=== PATIENT | female | born 1950 | race Caucasian/White ===

== ENCOUNTER → 2017-02-20 | Outpatient (CLI) | payer OTHER | LOC: FIMAGING 09:40 | PROVIDERS: ATTEND Obstetrics & Gynecology | DX: Z12.31 Encounter for screening mammogram for malignant neoplasm of breast (principal) | CPT/HCPCS: G0202; G0202-52 ==

== ENCOUNTER → 2018-02-21 | Outpatient (CLI) | payer OTHER | LOC: FIMAGING 08:37 | PROVIDERS: ATTEND Obstetrics & Gynecology | DX: Z12.31 Encounter for screening mammogram for malignant neoplasm of breast (principal) ==

== ENCOUNTER 2018-09-20 14:27 | Inpatient (IN) | payer OTHER ==
--- NOTE | 2018-09-20 15:09 | EDPHY ---
H & P Stated Complaint: Pt fall x8D [employer], H/A, had CT, wants MRI Time Seen by Provider: 09/20/18 14:55 HPI/ROS: CHIEF COMPLAINT: Brain mass HISTORY OF PRESENT ILLNESS: The patient is a 68-year-old female who has developed some difficulty with balance over the last week as well as occasional nausea vomiting. She had a mechanical fall about 1 week ago and presented to her primary doctor Sheng. Her primary ordered a CT scan that revealed a large frontal mass. No bleeding. She was sent here for admission and MRI. She denies recent fevers or illness. She does have a mild headache. She denies chest pain or shortness of breath. Severity: Moderate Modifying factors: None REVIEW OF SYSTEMS: Constitutional: denies: chills, fever, recent illness, recent injury EENTM: denies: blurred vision, double vision, nose congestion Respiratory: denies: cough, shortness of breath Cardiac: denies: chest pain, irregular heart rate, lightheadedness, palpitations Gastrointestinal/Abdominal: See HPI denies: abdominal pain, diarrhea, blood streaked stools Genitourinary: denies: dysuria, frequency, hematuria, pain Musculoskeletal: denies: joint pain, muscle pain Skin: denies: lesions, rash, jaundice, bruising Neurological: See HPI denies: numbness, paresthesia, tingling, dizziness, weakness Hematologic/Lymphatic: denies: blood clots, easy bleeding, easy bruising Immunologic/allergic: denies: HIV/AIDS, transplant 10 systems reviewed and negative except as noted EXAM: GENERAL: Well-appearing, well-nourished and in no acute distress. HEAD: Atraumatic, normocephalic. EYES: Pupils equal round and reactive to light, extraocular movements intact, sclera anicteric, conjunctiva are normal. ENT: TMs normal, nares patent, oropharynx clear without exudates. Moist mucous membranes. NECK: Normal range of motion, supple without lymphadenopathy or JVD. LUNGS: Breath sounds clear to auscultation bilaterally and equal. No wheezes rales or rhonchi. HEART: Regular rate and rhythm without murmurs, rubs or gallops. ABDOMEN: Soft, nontender, normoactive bowel sounds. No guarding, no rebound. No masses appreciated. BACK: No CVA tenderness, no spinal tenderness, step-offs or deformities EXTREMITIES: Normal range of motion, no pitting or edema. No clubbing or cyanosis. NEUROLOGICAL: Cranial nerves II through XII grossly intact. Normal speech, unsteady gait. 5/5 strength, normal movement in all extremities, normal sensation, normal reflexes PSYCH: Normal affect, preoccupied with needing to urinate SKIN: Warm, dry, normal turgor, no visible rashes or lesions. Source: Patient Exam Limitations: No limitations - Personal History Current Tetanus/Diphtheria Vaccine: Unsure - Medical/Surgical History Hx Asthma: No Hx Chronic Respiratory Disease: No Hx Diabetes: No Hx Cardiac Disease: No Hx Renal Disease: No Hx Cirrhosis: No Hx Alcoholism: No Hx HIV/AIDS: No Hx Splenectomy or Spleen Trauma: No Other PMH: Osteopenia - Family History Significant Family History: No pertinent family hx - Social History Smoking Status: Never smoked Alcohol Use: None Constitutional: Initial Vital Signs Temperature (C) 36.6 C 09/20/18 14:34 Heart Rate 82 09/20/18 14:34 Respiratory Rate 18 09/20/18 14:34 Blood Pressure 134/89 H 09/20/18 14:34 O2 Sat (%) 99 09/20/18 14:34 O2 Delivery Mode Room Air Allergies/Adverse Reactions: ibuprofen [From Advil] Allergy (Intermediate, Verified 09/20/18 18:54) sob Sulfa (Sulfonamide Antibiotics) Allergy (Intermediate, Verified 09/20/18 14:33) Home Medications: Medication Instructions Recorded aMILoride HCL [Amiloride HCl] 5 mg PO BID 06/05/12 Cholecalciferol Vit D3 [Vitamin D3 1,000 units PO BID 06/08/12 (*)] Citalopram Hydrobromide 10 mg PO HS 06/08/12 [Citalopram HBr] Promethazine HCl [Phenergan Rectal] 25 mg AZ Q6 PRN #10 suppr 04/20/16 Aspirin [Aspirin 325 mg (*)] 325 mg PO DAILY PRN 09/20/18 Herbals/Supplements -Info Only 1 ea PO DAILY 09/20/18 LORazepam [Ativan (*)] 0.5 mg PO BID PRN 09/20/18 Medical Decision Making ED Course/Re-evaluation: 3:45 p.m. discussed the case with Dr. Goodson who will consult as well as Dr. Vivas who will admit to the hospital service. MRI pending. Differential Diagnosis: Partial list of the Differential diagnosis considered include but were not limited to; tumor, and although unlikely based on the history and physical exam , I also considered hemorrhage, fracture. - Data Points Laboratory Results: Laboratory Results 09/20/18 15:39 09/20/18 15:39 Medications Given: Dexamethasone (Decadron Injection) 4 mg IVP Q6HRS JULIET Stop: 03/20/19 00:00 Last Admin: 09/21/18 14:33 Dose: 4 mg Levetiracetam 750 mg/ Sodium (Chloride) 107.5 mls @ 430 mls/hr IV BID JULIET Stop: 03/19/19 20:59 Last Admin: 09/21/18 11:48 Dose: 107.5 mls Discontinued Medications Dexamethasone (Decadron Injection) 10 mg IVP ONCE ONE Stop: 09/20/18 16:32 Last Admin: 09/20/18 17:23 Dose: 10 mg Potassium Chloride (Potassium Cl 20 Meq (Premix)) 100 mls @ 50 mls/hr IV EDNOW ONE Stop: 09/20/18 19:07 Last Admin: 09/20/18 18:15 Dose: 100 mls Potassium Chloride (Potassium Chloride Oral Liquid) 20 meq PO ONCE ONE Stop: 09/20/18 17:09 Last Admin: 09/20/18 17:24 Dose: Not Given Potassium Chloride (Klor-Con) 20 meq PO ONCE ONE Stop: 09/20/18 17:24 Last Admin: 09/20/18 17:25 Dose: 20 meq Point of Care Test Results: Chemistry 09/20/18 15:47 POC Sodium 132 mEq/L L mEq/L (135-145) POC Potassium 2.3 mEq/L L* mEq/L (3.3-5.0) POC Chloride 92 mEq/L L mEq/L (97-110) POC BUN 16 mg/dL mg/dL (7-23) POC Creatinine 0.8 mg/dL mg/dL (0.6-1.0) POC Glucose 112 mg/dL H mg/dL (70-100) ISTAT H&H 09/20/18 15:47 POC Hgb 17.3 gm/dL H gm/dL (12.6-16.3) POC Hct 51 % H % (38-47) Departure - Departure Disposition: [facility] Acute Clinical Impression: Brain tumor Condition: Fair
[2018-09-20 15:51] LABS: PLATELET COUNT 294 10^3/uL (150-400)
[2018-09-20 16:03] LABS: INR 0.99 (0.83-1.16); PROTIME(PATIENT) 13.3 SEC (12.0-15.0)
[2018-09-20] MEDS ORDERED: GADOBUTROL 10 ML VIAL IVP ONE (16:29)
[2018-09-20] MEDS ORDERED: DEXAMETHASONE 10 MG/ML VIAL IVP ONE (16:31)
[2018-09-20] MEDS ORDERED: POTASSIUM Cl (KCl) 100 ML IV ONE (17:08)
[2018-09-20] MEDS ORDERED: POTASSIUM CL 20 MEQ/15 ML UDCUP PO ONE (17:08)
--- NOTE | 2018-09-20 17:12 | GCON ---
DATE OF CONSULTATION: 09/20/2018 REASON FOR CONSULTATION: Frontal brain mass. HOSPITAL COURSE, HISTORY, MAJOR MEDICAL FINDINGS: The patient is a 68-year-old female who approximately 1 week ago fell and tripped and hit her chin. At that time, she started having headaches and she saw her primary care doctor, Dr. Patricio, who recommended that she undergo a head CT, given her mechanism of fall. She underwent this head CT and it demonstrated a 4.5 x 5.2 x 4.5 cm left frontal parafalcine mass which abuts the ventral margin of the corpus callosum causing vasogenic edema and effacement of the frontal horn. Based on this, she was directed to go into the emergency room for further workup. Upon talking to the patient, she states that she has noticed some word-finding difficulties also over the last week. Denies any weakness in her bilateral upper or bilateral lower extremities. REVIEW OF SYSTEMS: Review of systems is negative other than what is stated in the HPI. Please see for pertinent negatives and pertinent positives. PAST MEDICAL HISTORY: Significant for osteopenia. The patient is unsure of her other past medical history. 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 SOCIAL HISTORY: The patient is . She lives in [place]. She does not drink any alcohol or use illicit drugs. FAMILY HISTORY: Negative for any cancers. Her mother had osteoporosis and her dad had coronary artery disease. ALLERGIES: Patient is allergic to sulfa and Aleve. HOME MEDICATIONS: Include: 1. Amiloride. 2. Phenergan. 3. vitamin D3. 4. Citalopram. PHYSICAL EXAM: VITALS: BP is 139/76, heart rate is 79. She is 94% on room air. Temp is 36.6. GENERAL: Patient is in no acute distress. She is alert and oriented to person and place. She does have some word-finding difficulty and is incorrect when reporting the date. NEUROLOGIC: Cranial nerves 2-12 are grossly intact. EOMI and PERRLA. Negative pronator drift. The patient is a 5/5 and equal in her bilateral upper and bilateral lower extremities including her deltoids, triceps, biceps, wrist flexors, extensors, interossei, intrinsic emr analyst, iliopsoas, hamstrings, quadriceps, plantar flexion, dorsiflexion, and EHL. Sensation is intact in bilateral upper and bilateral lower extremities. DIAGNOSTIC REVIEW: Patient's laboratory data demonstrated a sodium of 128, potassium of 2.6, glucose of 110. Other values are within normal range. The patient underwent a head CT which demonstrated a large left frontal parafalcine mass that is approximately 4.5 x 5.2 x 4.5 cm. This mass abuts the ventral margin of the corpus callosum with pronounced mass effect and vasogenic cerebral edema and effacement of the ventral horn. There is 7 mm of left to right subfalcine herniation. There is no evidence of transtentorial or uncal herniation. There is a punctate basal ganglion calcification that is similar to her study in 2007. ASSESSMENT AND PLAN: The patient is a 68-year-old female who presented to the emergency room with new headache status post fall, also was having word-finding difficulties, who has evidence of a large left frontal mass with surrounding cerebral edema and brain compression. The patient was seen both by Dr. Álvarez and myself in the emergency room. At this point in time, the patient will be admitted to the hospitalist, given her electrolyte abnormalities. She does report taking aspirin 325 for headaches. We will go ahead and we will hold that at this time. She will undergo an MRI for further characterization of this large mass. We will get her started on Decadron 4 mg every 12 and Keppra 750 mg p.o. every 12. We will continue to follow. Further recommendations to follow once the MRI has resulted. /[id number]/MODL MTDD
[2018-09-20] MEDS ORDERED: POTASSIUM CL 20 MEQ TAB ONE (17:20)
[2018-09-20] MEDS ORDERED: POTASSIUM CL 20 MEQ TAB PO ONE (17:23)
[2018-09-20] MEDS ORDERED: PROMETHAZINE HCL 25 MG/ML INJ IVP PRN (17:55)
[2018-09-20] MEDS ORDERED: ACETAMINOPHEN 325 MG TAB PO PRN (17:55)
[2018-09-20] MEDS ORDERED: ONDANSETRON DISINTEGRATING 4 MG TAB PO PRN (17:55)
[2018-09-20] MEDS ORDERED: HYDROCODONE/APAP 5/325 TAB PO PRN (17:55)
[2018-09-20] MEDS ORDERED: oxyCODONE IR 5 MG TAB PO PRN (17:55)
[2018-09-20] MEDS ORDERED: ALPRAZolam 0.5 MG TAB PO PRN (17:55)
[2018-09-20] MEDS ORDERED: LORazepam 2 MG/ML INJ IVP PRN (17:58)
--- NOTE | 2018-09-20 17:59 | PDGENHP ---
History and Physical - Chief Complaint dizzyness/fall - History of Present Illness 68 yo F with PMH that includes pre-diabetes and hx of pheochromocytoma presents from CT scan with newly discovered large frontal brain mass. Patient had been seen by her PCP Dr. Patricio for sxs of difficulties with balance for at least one week with a fall that occurred during that time as well. She was sent by her PCP for CT scan of the brain, and imaging revealed large brain mass for which she was referred to the ER for further evaluation and brain MRI. Patient notes that her dizziness has been present for at least a week and feels largely to her as if she has difficulty with balance and walking rather than vertigo or near syncope like sxs. She notes she has also had some difficulty finding words at times and also has had headache and intermittent nausea and vomiting. She did have a bout of intractable hiccups recently as well. She otherwise denies any changes in her health recently and notes that she currently feels well. History Information - Allergies/Home Medication List Allergies/Adverse Reactions: ibuprofen [From Advil] Allergy (Intermediate, Verified 09/20/18 18:54) sob Sulfa (Sulfonamide Antibiotics) Allergy (Intermediate, Verified 09/20/18 14:33) Home Medications: aMILoride HCL [Amiloride HCl] 5 mg PO BID 06/05/12 [Last Taken 09/13/18] Cholecalciferol Vit D3 [Vitamin D3 (*)] 1,000 units PO BID 06/08/12 [Last Taken 09/13/18] Citalopram Hydrobromide [Citalopram HBr] 10 mg PO HS 06/08/12 [Last Taken ] Aspirin [Aspirin 325 mg (*)] 325 mg PO DAILY PRN 09/20/18 [Last Taken Unknown] Herbals/Supplements -Info Only 1 ea PO DAILY 09/20/18 [Last Taken 09/13/18] LORazepam [Ativan (*)] 0.5 mg PO BID PRN 09/20/18 [Last Taken 09/16/18] I have personally reviewed and updated: family history, medical history, social history, surgical history - Past Medical History hypertension, psychiatric history - Surgical History Reports: no pertinent surgical hx - Family History Positive for: CAD (father) - Social History Smoking Status: Never smoked Alcohol Use: None Drug Use: None Additional social history: , accompanied by her Review of Systems Review of Systems: ROS: 10pt was reviewed & negative except for what was stated in HPI & below Physical Exam Physical Exam: Temp Pulse Resp BP Pulse Ox 36.6 C 87 16 157/83 H 95 09/20/18 14:34 09/20/18 17:54 09/20/18 17:54 09/20/18 17:54 09/20/18 17:54 Constitutional: no apparent distress, appears nourished Eyes: PERRL, anicteric sclera Ears, Nose, Mouth, Throat: moist mucous membranes, hearing normal Cardiovascular: regular rate and rhythym, no murmur, rub, or gallop, No edema Respiratory: no respiratory distress, no rales or rhonchi Gastrointestinal: normoactive bowel sounds, soft, non-tender abdomen Genitourinary: no bladder tenderness Skin: warm, normal color Musculoskeletal: full muscle strength Neurologic: AAOx3 Psychiatric: interacting appropriately, not anxious, not encephalopathic Lab Data & Imaging Review 09/20/18 15:39 09/20/18 15:39 WBC 7.28 10^3/uL (3.80-9.50) 09/20/18 15:39 RBC 5.27 10^6/uL (4.18-5.33) 09/20/18 15:39 Hgb 16.6 g/dL (12.6-16.3) H 09/20/18 15:39 POC Hgb 17.3 gm/dL (12.6-16.3) H 09/20/18 15:47 Hct 45.6 % (38.0-47.0) 09/20/18 15:39 POC Hct 51 % (38-47) H 09/20/18 15:47 MCV 86.5 fL (81.5-99.8) 09/20/18 15:39 MCH 31.5 pg (27.9-34.1) 09/20/18 15:39 MCHC 36.4 g/dL (32.4-36.7) 09/20/18 15:39 RDW 12.7 % (11.5-15.2) 09/20/18 15:39 Plt Count 294 10^3/uL (150-400) 09/20/18 15:39 MPV 9.1 fL (8.7-11.7) 09/20/18 15:39 Neut % (Auto) 68.1 % (39.3-74.2) 09/20/18 15:39 Lymph % (Auto) 21.2 % (15.0-45.0) 09/20/18 15:39 [place] % (Auto) 8.9 % (4.5-13.0) 09/20/18 15:39 Eos % (Auto) 0.7 % (0.6-7.6) 09/20/18 15:39 Baso % (Auto) 0.7 % (0.3-1.7) 09/20/18 15:39 Nucleat RBC Rel Count 0.0 % (0.0-0.2) 09/20/18 15:39 Absolute Neuts (auto) 4.96 10^3/uL (1.70-6.50) 09/20/18 15:39 Absolute Lymphs (auto) 1.54 10^3/uL (1.00-3.00) 09/20/18 15:39 Absolute Monos (auto) 0.65 10^3/uL (0.30-0.80) 09/20/18 15:39 Absolute Eos (auto) 0.05 10^3/uL (0.03-0.40) 09/20/18 15:39 Absolute Basos (auto) 0.05 10^3/uL (0.02-0.10) 09/20/18 15:39 Absolute Nucleated RBC 0.00 10^3/uL (0-0.01) 09/20/18 15:39 Immature Gran % 0.4 % (0.0-1.1) 09/20/18 15:39 Immature Gran # 0.03 10^3/uL (0.00-0.10) 09/20/18 15:39 PT 13.3 SEC (12.0-15.0) 09/20/18 15:39 INR 0.99 (0.83-1.16) 09/20/18 15:39 POC Sodium 132 mEq/L (135-145) L 09/20/18 15:47 Sodium 128 mEq/L (135-145) L 09/20/18 15:39 POC Potassium 2.3 mEq/L (3.3-5.0) L* 09/20/18 15:47 Potassium 2.6 mEq/L (3.5-5.2) L* 09/20/18 15:39 POC Chloride 92 mEq/L (97-110) L 09/20/18 15:47 Chloride 94 mEq/L (97-110) L 09/20/18 15:39 Carbon Dioxide 22 mEq/l (22-31) 09/20/18 15:39 Anion Gap 12 mEq/L (6-14) 09/20/18 15:39 POC BUN 16 mg/dL (7-23) 09/20/18 15:47 BUN 17 mg/dL (7-23) 09/20/18 15:39 Creatinine 0.8 mg/dL (0.6-1.0) 09/20/18 15:39 POC Creatinine 0.8 mg/dL (0.6-1.0) 09/20/18 15:47 Estimated GFR > 60 09/20/18 15:39 Glucose 110 mg/dL (70-100) H 09/20/18 15:39 POC Glucose 112 mg/dL (70-100) H 09/20/18 15:47 Calcium 9.1 mg/dL (8.5-10.4) 09/20/18 15:39 Visualized and Interpreted imaging results: Yes Interpretation: head CT: large left frontal mass with mass effect and edema ( measured at 4.5 x 5.2 x 4.5 cm). brain MRI: left frontal mass appears most c/w meningioma with 10mm of left to right shift and additional small lesions also c/ w meningioma Assessment & Plan Assessment: Brain tumor (Acute) 68 yo F with hx of gait instability and dizziness for the past week or so as well as more chronic n/v found to have large left frontal brain tumor likely meningioma # brain tumor: large and with associated edema and left to right shift with features most c/w meningioma per radiology. Neurosurgery has been consulted and patient will likely require surgical intervention, will keep NPO after midnight for now in case of surgery in am. Started on decadron given edema and keppra for seizure ppx. # hypokalemia: patient reports poor po intake since her sxs began a week ago, likely etiology, will start electrolyte protocol # hyponatremia: likely hypovolemic hyponatremia, will give IVF overnight and monitor # gait instability: 2/2 above, will get pt/ot involved # hyperglycemia: patient apparently with hx of pre diabetes, will monitor # hx of pheochromocytoma: sp resection # IP status, will require > 48 hours stay for eval/mgmt of above and likely surgical intervention Patient new to my care. Old records reviewed and summarized as above. Care plan reviewed with ER doctor, neurosurgeon and patients PCP. Further hx obtained from patients present at bedside.
[2018-09-20] MEDS ORDERED: NS 1,000 ML IV SCH (18:00)
[2018-09-20] MEDS ORDERED: PROTOCOL K PHOSPHATE 1 DOSE IV PRN (20:58)
[2018-09-20] MEDS ORDERED: PROTOCOL POTASSIUM 1 DOSE MISC PRN (20:58)
[2018-09-20] MEDS ORDERED: PROTOCOL CALCIUM 1 DOSE IV PRN (20:58)
[2018-09-20] MEDS ORDERED: PROTOCOL MAGNESIUM 1 DOSE IV PRN (20:58)
[2018-09-20] MEDS: levETIRAcetam 750 MG in NS 100 ML IV SCH (21:55)
[2018-09-21] MEDS: DEXAMETHASONE 4 MG/ML VIAL IVP SCH ×4 (00:36→18:55)
[2018-09-21 05:18] LABS: PLATELET COUNT 304 10^3/uL (150-400)
--- NOTE | 2018-09-21 09:47 | PDMN ---
Medical Necessity Medical necessity: Pt meets inpt criteria per MD order and MCG M-152, Dizziness. 68 y/o w/gait instability and dizziness for past week, nausea and vomiting admitted w/new diagnosis of brain tumor, large frontal-associated w/ edema and L to R shift, hypokalemia and hyponatremia (K 2.6, Na 128). Neurosurg consult, brain MRI, possible surgery this admission, IV Decadron, Keppra started , anticipate >2MN for further eval/likely surg intervention.
[2018-09-21] MEDS ORDERED: LORazepam 0.5 MG TAB PO PRN (10:47)
--- NOTE | 2018-09-21 10:49 | HOSPPROG ---
Hospitalist Progress Note Assessment/Plan: #Large frontal meningioma with cerebral edema, brain compression -expressive aphasia, gait instability -will stay in hospital until surgery given risk for clinical deterioration and falls -Dexamethasone -discussed with PT #Hypokalemia/hyponatremia: resolved with supplementation, IVFs #Metabolic encephalopathy: due to mass, cerebral edema. #Social issues: was very hostile, yelling at me about not knowing when surgery scheduled and NPO status. I expressed that his actions against me were inappropriate and I left the room #DVT ppx: SCDs Disp: inpatient admission for surgical intervention, PT Subjective: "I want to go home" Objective: Vital Signs Temp Pulse Resp BP Pulse Ox 36.9 C 79 17 133/81 H 91 L 09/21/18 07:59 09/21/18 07:59 09/21/18 07:59 09/21/18 07:59 09/21/18 07:59 Laboratory Results 09/21/18 04:39 09/21/18 04:39 09/20/18 09/21/18 09/22/18 05:59 05:59 05:59 Intake Total 370 Balance 370 PT 13.3 SEC (12.0-15.0) 09/20/18 15:39 INR 0.99 (0.83-1.16) 09/20/18 15:39 - Time Spent With Patient Time Spent with Patient: greater than 35 minutes Time Spent with Patient: Greater than 35 minutes spent on this patients care, greater than 50% of time spent counseling, educating, and coordinating care regarding the above mentioned plan. - Physical Exam Constitutional: other (restless) Eyes: PERRL Ears, Nose, Mouth, Throat: moist mucous membranes Cardiovascular: regular rate and rhythym Respiratory: no respiratory distress Gastrointestinal: normoactive bowel sounds Genitourinary: No russell in urethra Musculoskeletal: other (gait instability) Neurologic: other (expressive aphasia) Psychiatric: encephalopathic ICD10 Worksheet Patient Problems: Problems Problem Status Onset Brain tumor Acute
--- NOTE | 2018-09-21 10:53 | NEUSURGPN ---
Assessment/Plan: 68 y/o female with headaches, expressive aphasia, dizziness who was found to have a large left frontal mass resulting in brain compression and cerebral edema with midline shift. MRI reviewed this morning with patient and She has improved with steroids overnight Discussed case with Dr. Lewis and will see how patient does with therapies today. Discussed further work-up treatment with patient and including biopsy/debulking of left frontal tumor. The patient has expressed interested in returning for surgery at a later date. But give her shift and swelling will need to monitor closely to see if okay for safe discharge prior to surgical planning. Continue Decadron 4mg q6 Continue Keppra 750mg bid Please notify NS with any change in neuro/motor exam Subjective: Speech, dizziness, and headaches improved. Objective: NAD PERRLA, EOMI, CN II-XII grossly intact. A&Ox3 MAEx4 5/ and equal in BUE and BLE. - Physician Discussed Patient with : Debbie Neurosurgery Physical Exam - Vitals, I&O, Labs I and O 09/20/18 09/21/18 09/22/18 05:59 05:59 05:59 Intake Total 370 Balance 370 Weight 63.503 kg Intake: Oral (ml) 350 IV Infused (ml) 20 Other: Number of Voids Toilet 4 Vital Signs Temp Pulse Resp BP Pulse Ox 36.9 C 79 17 133/81 H 91 L 09/21/18 07:59 09/21/18 07:59 09/21/18 07:59 09/21/18 07:59 09/21/18 07:59 Laboratory Results 09/21/18 04:39 09/21/18 04:39 ICD10 Worksheet Patient Problems: Problems Problem Status Onset Brain tumor Acute
[2018-09-21] MEDS: levETIRAcetam 750 MG in NS 100 ML IV SCH ×2 (11:48→20:51)
[2018-09-21] MEDS ORDERED: POTASSIUM CL 10 MEQ TAB PO ONE (19:45)
--- NOTE | 2018-09-21 20:46 | ASMTCMCOM ---
CM Note CM Note Notes: Pt admitted after a week of balance issues and a fall, CT scan shows large frontal lobe mass. PT worked with pt and does not think she should go back home before surgery to debulk mass. DC needs uncertain, MICKEY w/f. Pt lives at home with her DC Plan: TBD Date Signed: 09/21/2018 04:03 PM Electronically Signed By:Adilene Pate RN
[2018-09-21] MEDS: CITALOPRAM 20 MG TAB PO SCH (20:49)
[2018-09-21] MEDS: CHOLECALCIFEROL VIT D3 1,000 UNITS TAB PO SCH (20:50)
[2018-09-22] MEDS: DEXAMETHASONE 4 MG/ML VIAL IVP SCH ×5 (00:21→23:49)
[2018-09-22] MEDS: CHOLECALCIFEROL VIT D3 1,000 UNITS TAB PO SCH ×2 (08:05→22:09)
[2018-09-22] MEDS ORDERED: Herbals/Supplements -Info Only PO SCH (09:00)
[2018-09-22] MEDS: levETIRAcetam 750 MG in NS 100 ML IV SCH ×2 (09:17→22:11)
--- NOTE | 2018-09-22 10:35 | NEUSURGPN ---
Assessment/Plan: 68 y/o female with headaches, expressive aphasia, dizziness who was found to have a large left frontal mass resulting in brain compression and cerebral edema with midline shift. -She has improved with steroids -The patient has expressed interested in returning for surgery at a later date. But give her shift and swelling will need to monitor closely to see if okay for safe discharge prior to surgical planning. -Hyponatremia Na 130 this am, improving. Will add salt tabs BID -Plan for OR tomorrow at 0800 if medically clear -Continue Decadron 4mg q6 -Continue Keppra 750mg bid -Discussed patient with Dr Lewis -Please notify NS with any change in neuro/motor exam Subjective: Doing better with steroids Objective: AxO x4 PERRLA/EOMI CN 2-12 grossly intact MAEx4 5/5 BUE, BLE Neuro Check Frequency: per routine Urinary Catheter in Place: No - Physician Discussed Patient with Dr.: Lewis Neurosurgery Physical Exam - Vitals, I&O, Labs I and O 09/21/18 09/22/18 09/23/18 05:59 05:59 05:59 Intake Total 370 1320 Balance 370 1320 Weight 63.503 kg Intake: Oral (ml) 350 1000 IV Intake (ml) 320 IV Infused (ml) 20 Other: Intake Quantity Yes Sufficient Number of Voids Incontinence 2 Toilet 4 1 Number of Stools Incontinence 1 Vital Signs Temp Pulse Resp BP Pulse Ox 36.6 C 70 17 148/79 H 92 09/22/18 08:00 09/22/18 08:00 09/22/18 08:00 09/22/18 08:00 09/22/18 08:00 Laboratory Results 09/21/18 04:39 09/22/18 04:30 ICD10 Worksheet Patient Problems: Problems Problem Status Onset Brain tumor Acute
[2018-09-22] MEDS ORDERED: ceFAZolin 2 GM/DEXTROSE 100 ML IV ONE (10:45)
--- NOTE | 2018-09-22 14:20 | HOSPPROG ---
Hospitalist Progress Note Assessment/Plan: #Large frontal meningioma with cerebral edema, brain compression -expressive aphasia, gait instability -surgery tomorrow morning. No e/o arrhythmia on EKG -Dexamethasone -discussed with NSGY #Hypokalemia: repleted #Hyponatremia: SIADH with brain mass and urine lytes c/w it. Salt tabs, fluid restrict #Metabolic encephalopathy: due to mass, cerebral edema. #Social issues: was very hostile, yelling at me about not knowing when surgery scheduled and NPO status. I expressed that his actions against me were inappropriate and I left the room #DVT ppx: SCDs Disp: inpatient admission for surgical intervention, PT Subjective: mild LOPEZ. No chest pain, SOB or palpitations Objective: Vital Signs Temp Pulse Resp BP Pulse Ox 36.6 C 72 16 161/85 H 95 09/22/18 11:33 09/22/18 11:33 09/22/18 11:33 09/22/18 11:33 09/22/18 11:33 Laboratory Results 09/21/18 04:39 09/22/18 04:30 09/21/18 09/22/18 09/23/18 05:59 05:59 05:59 Intake Total 370 1320 400 Output Total 600 Balance 370 1320 -200 PT 13.3 SEC (12.0-15.0) 09/20/18 15:39 INR 0.99 (0.83-1.16) 09/20/18 15:39 - Time Spent With Patient Time Spent with Patient: greater than 35 minutes Time Spent with Patient: Greater than 35 minutes spent on this patients care, greater than 50% of time spent counseling, educating, and coordinating care regarding the above mentioned plan. - Physical Exam Constitutional: no apparent distress Eyes: PERRL Ears, Nose, Mouth, Throat: moist mucous membranes Cardiovascular: regular rate and rhythym, No edema Respiratory: no respiratory distress Gastrointestinal: normoactive bowel sounds Genitourinary: no bladder fullness Skin: normal color Musculoskeletal: generalized weakness Psychiatric: encephalopathic, other (giddy) ICD10 Worksheet Patient Problems: Problems Problem Status Onset Brain tumor Acute
[2018-09-22] MEDS: SODIUM CHLORIDE 1,000 MG TAB PO SCH (17:33)
[2018-09-22] MEDS: CITALOPRAM 20 MG TAB PO SCH (22:09)
[2018-09-23] MEDS: DEXAMETHASONE 4 MG/ML VIAL IVP SCH ×3 (05:29→18:02)
[2018-09-23] MEDS ORDERED: ceFAZolin 2 GM/DEXTROSE 100 ML IV ONE (07:00)
--- NOTE | 2018-09-23 07:27 | CPEKG ---
Test Reason : OPEN Blood Pressure : / mmHG Vent. Rate : 073 BPM Atrial Rate : 074 BPM P-R Int : 155 ms QRS Dur : 087 ms QT Int : 632 ms P-R-T Axes : 032 012 033 degrees QTc Int : 697 ms Sinus rhythm Borderline T wave abnormalities Prolonged QT interval Confirmed by Yoly Brito ([id number]) on 09/23/2018 7:26:58 AM Referred By: Lizz Muir Confirmed By:Yoly Brito
[2018-09-23] MEDS ORDERED: SURGIFLO MATRIX KIT WITH THROMBIN 8 ML TP ONE (07:36)
[2018-09-23] MEDS ORDERED: BACITRACIN ZINC 0.5 OZ OINTTUBE TP ONE ×2 (07:36→11:12)
[2018-09-23] MEDS ORDERED: AVITENE POWDER 1 GM JAR TP ONE (07:37)
[2018-09-23] MEDS ORDERED: GENTAMICIN SULFATE 80 MG/2 ML VIAL ONE ×2 (07:37→09:23)
[2018-09-23] MEDS ORDERED: MANNITOL 20% 100 GM/500 ML BAG IV ONE (07:37)
[2018-09-23] MEDS ORDERED: BUPIVACAINE 0.25% 30 ML SDV ONE (07:37)
[2018-09-23] MEDS ORDERED: THROMBIN (BOVINE) 20,000 UNIT VIAL TP ONE ×2 (07:37→09:40)
[2018-09-23] MEDS ORDERED: CHLORHEXIDINE GLUC HIBICLENS 118 ML BTL TP ONE (07:37)
[2018-09-23] MEDS ORDERED: EPINEPHrine 1 MG/ML INJ ONE (07:38)
--- NOTE | 2018-09-23 08:01 | PDANEPAE ---
ANE History of Present Illness Large meningioma here for crani, tumor excision ANE Past Medical History - Cardiovascular History Hx Hypertension: Yes Hx Arrhythmias: No Hx Chest Pain: No Hx Coronary Artery / Peripheral Vascular Disease: No Hx CHF / Valvular Disease: No Hx Palpitations: No - Pulmonary History Hx Oxygen in Use at Home: No Hx Sleep Apnea: No Sleep Apnea Screening Result - Last Documented: Negative - Endocrine History Hx Diabetes: No - Chronic Pain History Chronic Pain: No ANE Review of Systems Review of Systems: - Exercise capacity Exercise capacity: >=4 METS ANE Patient History - Allergies Allergies/Adverse Reactions: ibuprofen [From Advil] Allergy (Intermediate, Verified 09/20/18 18:54) sob Sulfa (Sulfonamide Antibiotics) Allergy (Intermediate, Verified 09/20/18 14:33) - Home Medications Home medications: home medication list seen and reviewed Home Medications: aMILoride HCL [Amiloride HCl] 5 mg PO BID 06/05/12 [Last Taken 09/13/18] Cholecalciferol Vit D3 [Vitamin D3 (*)] 1,000 units PO BID 06/08/12 [Last Taken 09/13/18] Citalopram Hydrobromide [Citalopram HBr] 10 mg PO HS 06/08/12 [Last Taken ] Aspirin [Aspirin 325 mg (*)] 325 mg PO DAILY PRN 09/20/18 [Last Taken Unknown] Herbals/Supplements -Info Only 1 ea PO DAILY 09/20/18 [Last Taken 09/13/18] LORazepam [Ativan (*)] 0.5 mg PO BID PRN 09/20/18 [Last Taken 09/16/18] - NPO status NPO Status: no food or drink >8 hours NPO Since - Liquids (Date): 09/23/18 NPO Since - Liquids (Time): 00:00 NPO Since - Solids (Date): 09/23/18 NPO Since - Solids (Time): 00:00 - Anes Hx Anes Hx: no prior problems - Smoking Hx Smoking Status: Never smoked - Alcohol Use Alcohol Use: Rarely - Family Anes Hx Family Anes Hx: none ANE Labs/Vital Signs - Labs Result Diagrams: 09/21/18 04:39 09/23/18 05:00 - Vital Signs Blood Pressure: 128/79 Heart Rate: 58 Respiratory Rate: 16 O2 Sat (%): 94 Height: 172.72 cm Weight: 63.503 kg ANE Physical Exam - Airway Neck exam: FROM Mallampati Score: Class 2 Mouth exam: normal dental/mouth exam - Pulmonary Pulmonary: no respiratory distress, clear to auscultation - Cardiovascular Cardiovascular: regular rate and rhythym, no murmur, rub, or gallop - ASA Status ASA Status: III ANE Anesthesia Plan Anesthesia Plan: general endotracheal anesthesia Lines/Monitors: arterial line Total IV Anesthesia: Yes
[2018-09-23] MEDS ORDERED: fentaNYL 100 MCG/2 ML INJ ONE ×2 (08:08→11:40)
[2018-09-23] MEDS ORDERED: REMIFENTANIL HCL 1 MG VIAL ONE ×3 (08:08→10:23)
[2018-09-23] MEDS ORDERED: PROPOFOL/EMULSION 500 MG/50 ML BOTTLE IV ONE ×2 (08:09→10:23)
[2018-09-23] MEDS ORDERED: PROPOFOL 200 MG/20 ML VIAL ONE (08:09)
[2018-09-23] MEDS ORDERED: LIDOCAINE 2% 100 MG/5 ML SYR ONE (08:13)
[2018-09-23] MEDS ORDERED: oxyCODONE IR 5 MG TAB PO PRN (08:49)
[2018-09-23] MEDS ORDERED: POLYETHYLENE GLYCOL 3350 17 GM PKT PO PRN (08:49)
[2018-09-23] MEDS ORDERED: BISACODYL 10 MG SUPP PR PRN (08:49)
[2018-09-23] MEDS ORDERED: MAGNESIUM HYDROXIDE 30 ML UDCUP PO PRN (08:49)
[2018-09-23] MEDS ORDERED: LACTULOSE 20 GM/30 ML UDCUP PO PRN (08:49)
[2018-09-23] MEDS ORDERED: METHOCARBAMOL 750 MG TAB PO PRN (08:49)
[2018-09-23] MEDS ORDERED: niCARdipine/NACL 200 ML IV PRN (08:54)
[2018-09-23] MEDS: SODIUM CHLORIDE 1,000 MG TAB PO SCH ×2 (11:05→18:12)
[2018-09-23] MEDS: CHOLECALCIFEROL VIT D3 1,000 UNITS TAB PO SCH ×2 (11:05→21:17)
[2018-09-23] MEDS ORDERED: HYDROCODONE/APAP 5/325 TAB PO PRN (11:06)
[2018-09-23] MEDS: FAMOTIDINE 20 MG TAB PO SCH ×2 (11:06→21:17)
[2018-09-23] MEDS ORDERED: ONDANSETRON 4 MG/2 ML VIAL IVP PRN (11:06)
[2018-09-23] MEDS ORDERED: OXYCODONE/APAP 5/325 TAB PO PRN (11:06)
[2018-09-23] MEDS: SENNOSIDES/DOCUSATE SODIUM TAB PO SCH (11:06)
[2018-09-23] MEDS ORDERED: ACETAMINOPHEN 500 MG TAB PO PRN (11:06)
[2018-09-23] MEDS ORDERED: NALOXONE HCL 0.4 MG/ML INJ IVP PRN (11:06)
[2018-09-23] MEDS ORDERED: fentaNYL 100 MCG/2 ML INJ IVP PRN (11:06)
[2018-09-23] MEDS ORDERED: HYDROmorphONE/DILAUDID 1 MG/ML INJ IVP PRN (11:06)
[2018-09-23] MEDS: levETIRAcetam 750 MG in NS 100 ML IV SCH ×2 (12:23→21:22)
--- NOTE | 2018-09-23 12:34 | POSTANESTH ---
Post Anesthetic Evaluation Cardiovascular Status: Normal, Stable, Similar to Pre-Op Cond Respiratory Status: Normal, Stable, Similar to Pre-op Cond. Level of Consciousness/Mental Status: Can Participate in Eval, Alert and Oriented Pain Control: Adequate, Prn Tx Ordered Nausea/Vomiting Control: Adequate, Prn Tx Ordered Complications Possibly Related to Anesthesia: None Noted
--- NOTE | 2018-09-23 12:51 | POSTOPPROG ---
Post Op Note Date of Operation: 09/23/18 Surgeon: Dominik Lewis Vice President Of Operations: Talya Huffman NP Anesthesiologist: Dr Davis Anesthesia: GET(General Endotracheal) Pre-op Diagnosis: Brain tumor Procedure: Left frontal craniotomy Inf/Abcess present in the surg proc area at time of surgery?: No Depth: Deep Incisional (Fascial) EBL: 100-500 Total fluids administered: see anesthesia Complications: none Drains: Jayant Das Date of Surgery: 09/23/18 Post Op Day: 0 Assessment/Plan: 68 y/o female with headaches, expressive aphasia, dizziness who was found to have a large left frontal mass resulting in brain compression and cerebral edema with midline shift. POD#0 s/p left frontal craniotomy for tumor resection Plan: -Admit ICU -Subgaleal CHRISTAL to bulb suction -Q1hr neuro checks -Keep SBP less than 140 -Post op MRI ordered for am -Continue Decadron 4mg q6 -Continue Keppra 750mg bid -Discussed patient with Dr Lewis -Please notify NS with any change in neuro/motor exam Subjective: waking up in ICU Objective: Waking up in ICU AL x4 PERRLA/EOMI No facial droop Clear speech CN 2-12 grossly intact Incision/dressing CDI CHRISTAL patent Appropriate Neuro Check Frequency Ordered: Yes
[2018-09-23] MEDS: ONDANSETRON 4 MG/2 ML VIAL IVP PRN ×3 (12:56→22:30)
[2018-09-23] MEDS: NS 1,000 ML IV SCH (12:57)
[2018-09-23] MEDS: ceFAZolin 2 GM/DEXTROSE 100 ML IV SCH ×2 (14:18→21:23)
[2018-09-23] MEDS: ACETAMINOPHEN 500 MG TAB PO SCH (14:34)
[2018-09-23] MEDS: GABAPENTIN 300 MG CAP PO SCH ×2 (14:34→21:16)
--- NOTE | 2018-09-23 14:59 | HOSPPROG ---
Hospitalist Progress Note Assessment/Plan: #Large left frontal mass: causing cerebral edema, expressive aphasia. -s/p craniotomy today -Dex q6, Keppra -SBP<140 #Hypokalemia: repleted #Hyponatremia: SIADH with brain mass and urine lytes c/w it. Salt tabs, fluid restrict #Metabolic encephalopathy: due to mass, cerebral edema. #Social issues: was very hostile, yelling at me about not knowing when surgery scheduled and NPO status. I expressed that his actions against me were inappropriate and I left the room #DVT ppx: SCDs Disp: inpatient admission for surgical intervention, PT Subjective: mild LOPEZ Objective: Vital Signs Temp Pulse Resp BP Pulse Ox 35.6 C L 85 14 118/66 98 09/23/18 12:29 09/23/18 14:30 09/23/18 14:30 09/23/18 14:30 09/23/18 14:30 Laboratory Results 09/21/18 04:39 09/23/18 05:00 09/22/18 09/23/18 09/24/18 05:59 05:59 05:59 Intake Total 1320 1260 Output Total 1650 155 Balance 1320 -390 -155 PT 13.3 SEC (12.0-15.0) 09/20/18 15:39 INR 0.99 (0.83-1.16) 09/20/18 15:39 - Time Spent With Patient Time Spent with Patient: greater than 35 minutes Time Spent with Patient: Greater than 35 minutes spent on this patients care, greater than 50% of time spent counseling, educating, and coordinating care regarding the above mentioned plan. - Physical Exam Constitutional: uncomfortable Ears, Nose, Mouth, Throat: other (crainial incision dressed, CHRISTAL in place) Cardiovascular: regular rate and rhythym Respiratory: no respiratory distress Gastrointestinal: normoactive bowel sounds Genitourinary: no bladder fullness Skin: warm Musculoskeletal: full muscle strength Neurologic: CN II-XII Intact Psychiatric: encephalopathic ICD10 Worksheet Patient Problems: Problems Problem Status Onset Brain tumor Acute
[2018-09-23] MEDS: CITALOPRAM 20 MG TAB PO SCH (21:16)
[2018-09-24] MEDS: DEXAMETHASONE 4 MG/ML VIAL IVP SCH ×5 (00:06→23:34)
[2018-09-24] MEDS: NS 1,000 ML IV SCH (02:00)
[2018-09-24] MEDS: ACETAMINOPHEN 500 MG TAB PO SCH ×4 (04:42→22:15)
[2018-09-24] MEDS: SENNOSIDES/DOCUSATE SODIUM TAB PO SCH ×3 (04:43→20:19)
[2018-09-24 05:32] LABS: PLATELET COUNT 219 10^3/uL (150-400)
[2018-09-24] MEDS: GABAPENTIN 300 MG CAP PO SCH (05:46)
[2018-09-24] MEDS: levETIRAcetam 750 MG in NS 100 ML IV SCH (08:11)
--- NOTE | 2018-09-24 08:27 | NEUSURGPN ---
Date of Surgery: 09/23/18 Post Op Day: 1 Assessment/Plan: 68 y/o female with headaches, expressive aphasia, dizziness who was found to have a large left frontal mass resulting in brain compression and cerebral edema with midline shift. POD#1 s/p left frontal craniotomy for tumor resection Plan: -Subgaleal CHRISTAL to bulb suction, bulb not maintaining suction, drain well seated at surgical site. RN will attempt to keep compression. Leave in for now until MRI is reviewed. -Q2hr neuro checks -Keep SBP less than 140 -Post op MRI pending -Continue Decadron 4mg q6 -Continue Keppra 750mg bid -Path pending -Discussed patient with Dr Lewis -Please notify NS with any change in neuro/motor exam Subjective: Sitting in chair, doing well Objective: AxO x4 PERRLA/EOMI CN 2-12 grossly intact MAEx4 5/5 BUE, BLE Clear speech Swelling over left eye Neuro Check Frequency: per routine Urinary Catheter in Place: No - Physician Discussed Patient with : Debbie Neurosurgery Physical Exam - Vitals, I&O, Labs I and O 09/23/18 09/24/18 09/25/18 05:59 05:59 05:59 Intake Total 1260 1416.5 Output Total 1650 1045 Balance -390 371.5 Weight 63.503 kg Intake: Oral (ml) 1000 350 IV Intake (ml) 1051 IV Infused (ml) 260 15.5 levETIRAcetam 750 mg In 260 Ns 100 ml @ 430 mls/hr IV BID JULIET Rx#:[id number] niCARdipine/NACL 200 ml @ 15.5 Titrate IV PRN PRN Rx#: [id number] Output: Urine (ml) 1650 835 Bedpan 300 Catheter 535 Incontinence 800 Toilet 850 Emesis (ml) 200 CHRISTAL Drain Output (ml) 10 #1 Right Head Jayant 10 Das Other: Intake Quantity Yes Sufficient Number of Voids Incontinence 1 1 1 Toilet 1 Number of Stools Bedpan 0 Vital Signs Temp Pulse Resp BP Pulse Ox 36.8 C 67 17 140/75 H 94 09/24/18 08:00 09/24/18 08:00 09/24/18 08:00 09/24/18 08:00 09/24/18 08:00 Laboratory Results 09/24/18 05:23 09/24/18 05:23 ICD10 Worksheet Patient Problems: Problems Problem Status Onset Brain tumor Acute
[2018-09-24] MEDS: SODIUM CHLORIDE 1,000 MG TAB PO SCH ×2 (10:04→17:40)
[2018-09-24] MEDS: CHOLECALCIFEROL VIT D3 1,000 UNITS TAB PO SCH ×2 (10:04→20:19)
[2018-09-24] MEDS: FAMOTIDINE 20 MG TAB PO SCH ×2 (10:05→20:19)
[2018-09-24] MEDS ORDERED: GADOBUTROL 10 ML VIAL IVP ONE (11:01)
--- NOTE | 2018-09-24 12:26 | HOSPPROG ---
Hospitalist Progress Note Assessment/Plan: #Large left frontal mass: causing cerebral edema, expressive aphasia. -s/p craniotomy, POD#1 -Dex q6, Keppra per Neurosurgery -SBP<140 - Brain MRI scheduled for this AM #Hypokalemia: repleted #Hyponatremia: SIADH with brain mass and urine lytes c/w it. Salt tabs, fluid restrict #Metabolic encephalopathy: due to mass, cerebral edema. #DVT ppx: SCDs Disp: inpatient admission for surgical intervention, PT Subjective: Patient somnolent this morning, able to shake head yes/no Objective: Vital Signs Temp Pulse Resp BP Pulse Ox 36.6 C 64 14 122/69 H 97 09/24/18 12:00 09/24/18 12:00 09/24/18 12:00 09/24/18 12:00 09/24/18 12:00 Laboratory Results 09/24/18 05:23 09/24/18 05:23 09/23/18 09/24/18 09/25/18 05:59 05:59 05:59 Intake Total 1260 1416.5 150 Output Total 1650 1045 60 Balance -390 371.5 90 PT 13.3 SEC (12.0-15.0) 09/20/18 15:39 INR 0.99 (0.83-1.16) 09/20/18 15:39 - Physical Exam Constitutional: chronically ill appearing Eyes: anicteric sclera Ears, Nose, Mouth, Throat: moist mucous membranes Cardiovascular: regular rate and rhythym Respiratory: no respiratory distress Gastrointestinal: soft, non-tender abdomen Skin: normal color Musculoskeletal: No full muscle strength Neurologic: No AAOx3 Psychiatric: No interacting appropriately ICD10 Worksheet Patient Problems: Problems Problem Status Onset Brain tumor Acute
--- NOTE | 2018-09-24 14:53 | ASMTCMCOM ---
CM Note CM Note Notes: Pt discussed in rounds and with therapy. PT recommending inpatient rehab at this time. Spoke with MD from inpatient rehab and he reports pathology/ oncology recommendations will influence if they are able to take her at inpatient rehab. Pt has [employer] insurance, will need prior auth. CM will continue to collaborate with inpatient rehab. CM to follow. Plan:Inpatient Rehab Date Signed: 09/24/2018 02:47 PM Electronically Signed By:ELIANA Damian
--- NOTE | 2018-09-24 15:29 | GCON ---
PULMONARY CRITICAL CARE CONSULTATION DATE OF CONSULTATION: 09/24/2018 REASON FOR CONSULTATION: Intensive care unit evaluation and management following craniotomy. HISTORY OF PRESENT ILLNESS: The patient is a 68-year-old who was admitted to the hospital on 09/20. She had presented to her primary care physician with balance problems and a fall. CT scan of the he ad was ordered, which showed a large frontal brain mass, as well as other other abnormalities. MRI o n admission better documented the left frontal mass and felt it was most consistent with a meningioma . There was some surrounding edema and a left to right shift. Two smaller lesions were also seen, a lso felt likely to be meningiomas. In addition, there were some parietal and cerebellar abnormalitie s found, which were suspicious for possible embolic infarcts versus the sequela of pulmonary contusio n?. She was taken to the OR yesterday, 09/23. Dr. Lewis performed a left frontal craniotomy with i ncomplete removal of her presumed meningioma. Estimated blood loss was between 100 and 500 cc. She was returned to the intensive care unit with CHRISTAL drains to suction, on Decadron and Keppra. Followup CT scan of the head done today shows changes consistent with the resection, with some residual tumor and blood products being present. Cerebellar and parietal abnormalities persisted with now new areas of signal abnormality of restricted diffusion in the bilateral occipital areas consistent with possi ble new infarcts. The patient, herself, is doing relatively well. She is somewhat lethargic after surgery yesterday, b ut is arousable and conversant. She denies significant pain. She denies any limitations, is moving all extremities. PAST MEDICAL HISTORY: Relatively unremarkable. There is a history of mild systemic hypertension, de pression, and anxiety. SOCIAL HISTORY: The patient is , with a supportive spouse. Tobacco and significant alcohol a re negative. FAMILY HISTORY: Coronary artery disease. REVIEW OF SYSTEMS: A 10-point review of systems is negative, except as outlined above. There is no history of heart disease, peripheral vascular disease, stroke-like symptoms in the past, severe hyper tension, coronary artery disease, thromboembolic disease, or other problems. ALLERGIES: Sulfa preparations, ibuprofen. PHYSICAL EXAMINATION: GENERAL: Reveals a woman who is somewhat somnolent, but arouses easily and is responsive and conversant, at least with short sentence answers. VITAL SIGNS: Blood pressure is 12 2/69, heart rate 64 with sinus rhythm on the monitor. On room air, saturations are 97%. Respiratory rate is 14. She is afebrile. HEENT: Remarkable for ecchymosis and swelling about the left eye pos toperatively. NECK: There is no jugular venous distention. No carotid bruits are appreciated. NEVAEH ST: Clear bilaterally. HEART: Regular in rate and rhythm without murmurs or gallops. ABDOMEN: So ft and nontender. Bowel sounds are present. EXTREMITIES: Without edema, cords, or tenderness. NITA ROLOGIC: Examination is somewhat difficult secondary to her lethargy. She is somewhat weak globally , but is nonfocal, moves all extremities equally. She was not ambulated. She is oriented. DATABASE: MRIs and radiologic studies are as noted above. LABORATORY: White blood cell count is 10,500, hematocrit 27.6, platelets are normal, hematocrit on a dmission was 45.6. PT, INR were normal on admission, as was platelet function. Sodium today is 131, potassium 4.1, CO2 21, BUN 15 with a creatinine 0.6. Glucose is 107, calcium 8.0. ASSESSMENT: 1. Meningioma, status post craniotomy with resection. She is doing well postoperatively. She is on Decadron, as well as Keppra. She has no significant focal neurologic deficits related to her surger y; however, she is somewhat lethargic. This may be in part secondary to postoperative medications an d pain control. High-dose gabapentin has been stopped. 2. Multiple areas of possible bilateral small infarcts, including 2 new areas today since her previo us studies. These are in the occipital cortex. The etiology for these abnormalities is unclear. Sh marga was not documented to be significantly hypotensive. Anesthesia records indicate that the lowest bl ood pressure very transiently was approximately 85/40. There is no history of cardiac disease, arrhy thmias, or cerebral vascular disease. Further evaluation is warranted. Carotid ultrasounds will be obtained. A cardiac echo will be ordered. Neurologic consultation will be requested. 3. Metabolic: Hyponatremia, mild at 131. Follow. 4. Acute blood-loss anemia. Hematocrit is 27. This will be followed. 5. Prophylaxis: On famotidine and enoxaparin. PLAN AND RECOMMENDATIONS: Patient will be kept in the intensive care unit. Current medications will be continued. Salt tablets will be continued. CBC and chemistries will be followed. Carotid ultra sounds will be ordered, along with a cardiac echo. Neurology consultation has been requested. The p atient will be mobilized as possible. She is being seen by OT, PT, and Speech Therapy. Further plans and recommendations will be made based on her progress over the next 12 to 24 hours. /[id number]/MODL
[2018-09-24] MEDS ORDERED: IOHEXOL 350mgI/ML (OMNIPAQUE) 150 ML BTL IV ONE (16:15)
[2018-09-24] MEDS: ONDANSETRON 4 MG/2 ML VIAL IVP PRN (20:10)
[2018-09-24] MEDS: levETIRAcetam 500 MG TAB PO SCH (20:19)
[2018-09-24] MEDS: CITALOPRAM 20 MG TAB PO SCH (20:19)
[2018-09-25] MEDS: ACETAMINOPHEN 500 MG TAB PO SCH ×2 (05:24→13:17)
[2018-09-25] MEDS: DEXAMETHASONE 4 MG/ML VIAL IVP SCH ×3 (05:50→17:32)
--- NOTE | 2018-09-25 07:32 | ECHO ---
[email or web address] [address] Main: [phone] Fax: Transthoracic Echocardiogram Name: TOOTIE MATOS MR#: [id number] Study Date: 09/24/2018 Study Time: 02:40 PM Date of : 1950 Age: 68 year(s) Height: 172.7 cm (68 in.) Weight: 63.5 kg (140 lb.) BSA: 1.76 m2 Gender: Female Examination: Echo with Agitated Saline Indication: POLICE JUDGE infarcts, question etiology Image Quality: Adequate Contrast: Requested by: Jamar Henley BP: 139 mmHg/80 mmHg Heart Rate: Rhythm: Indication: POLICE JUDGE infarcts, question etiology Procedure Staff Membership Solicitor: Jane Snider [facility] Reading Physician: Yoly Brito MD Requesting Provider: Conclusions: Normal size left ventricle. Mild concentric LV hypertrophy. Normal global systolic LV function. EF is 66 %. No regional wall motion abnormality. Normal diastolic LV function. Normal size right ventricle. Normal RV function. 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 Small amount of right to left intracardiac shunting with bubble study. Trivial to mild mitral regurgitation. Trivial pericardial effusion. Measurements: Chambers Valvular Assessment AV/MV Valvular Assessment TV/PV Normal Normal Normal Name Value Range Name Value Range Name Value Range Ao Madhuri (MM): 2.9 cm (2.2 cm-3.7 AV Vmax: 1.39 m/s (1 m/s-1.7 TR Vmax: 2.30 mm/s ( - ) cm) m/s) TR PGmax: 21 mmHg ( - ) IVSd (2D): 1.0 cm (0.6 cm-1.1 AV maxP mmHg ( - ) syst. PAP: 31 mmHg ( - ) cm) LVOT Vmax: 1.05 m/s (0.7 m/s-1.1 PV Vmax: 0.88 m/s (0.6 m/s-0.9 LVDd (2D): 4.1 cm (3.9 cm-5.3 m/s) m/s) cm) MARITZA (Vmax): 2.1 cm2 ( - ) PV PGmax: 3 mmHg ( - ) LVDs (2D): 2.6 cm (2.1 cm-4 MV E Vmax: 0.78 m/s ( - ) cm) MV A Vmax: 0.93 m/s ( - ) LVPWd (2D): 1.0 cm ( - ) MV E/A: 0.84 ( - ) LVOTd 1.9 cm 1.9 cm mm LVEF (BP): 66 % (>=55 %) RVDd(2D): 2.9 cm (1.9 cm-3.8 cmmm) Patient: TOOTIE MATOS Study Date: 09/24/2018 Page 1 of 2 02:40 PM Continued Measurements: Chambers Valvular Assessment AV/MV Valvular Assessment TV/PV Name Value Name Value Name Value LADs: 3.4 cm MV DecTime: 211 m/s CVP (est.): 10 mmHg LADs Lon.1 cm MV E' Septal: 0.07 m/s LA Area: 17.9 cm2 MV E/E' Septal: 10.60 LA Volume: 45 ml MV E/E' Lateral: 9.80 LA Volume Index: 25.6 ml/m2 TAPSE: 2.5 cm RA Area: 15.2 cm2 Additional Vessels Name Value Ao Ascendin.8 cm Findings: Left Ventricle: Normal size left ventricle. Mild concentric LV hypertrophy. Normal global systolic LV function. EF is 66 %. No regional wall motion abnormality. Normal diastolic LV function. Right Ventricle: Normal size right ventricle. Normal RV function. Left Atrium: The left atrium is normal in size. 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 Small amount of right to left intracardiac shunting with bubble study. Right Atrium: The right atrium is normal in size. Mitral Valve: The mitral valve is normal in appearance. Trivial to mild mitral regurgitation. No mitral stenosis is present. Aortic Valve: The aortic valve is tri-leaflet. There is no aortic valve regurgitation. No aortic valve stenosis is present. Tricuspid Valve: The tricuspid valve appears normal. Trivial to mild tricuspid valve regurgitation. Right ventricular systolic pressure measures 31mmHg. Borderline elevated pumonary artery pressure. Pulmonic Valve: Pulmonary valve not well visualized. There is no pulmonic regurgitation seen. Aorta: Normal size aortic root measuring 2.9 cm. Normal size ascending aorta measuring 2.8 cm. IVC: The IVC is dilated. There is less than 50% respiratory excursion. Pericardium: Trivial pericardial effusion. There is pericardial fat. (No Signature Object) Patient: TOOTIE MATOS Study Date: 09/24/2018 Page 2 of 2 02:40 PM [id number]
--- NOTE | 2018-09-25 08:15 | NEUSURGPN ---
Date of Surgery: 09/23/18 Post Op Day: 2 Assessment/Plan: Assessment: 68 y/o female with headaches, expressive aphasia, dizziness who was found to have a large left frontal mass resulting in brain compression and cerebral edema with midline shift. POD #2 s/p left frontal craniotomy for tumor resection Plan: -Subgaleal CHRISTAL to bulb suction, maintaining suction, drain well seated at surgical site. Leave in for now. 40 cc output -CTA head and neck was reviewed. Carotid US shows no flow limiting stenosis -Q2hr neuro checks -doing well this am -Keep SBP less than 140 -Post op MRI reviewed that shows greater than 90% resection -Continue Decadron 4mg q6 -Continue Keppra 750mg bid -Path pending -Discussed patient with Dr Lewis -Please notify NS with any change in neuro/motor exam Subjective: Awake and alert. NAD. Sitting in chair. No new events or concerns. No f/c/n/ v/d. Objective: AAxO x 4 PERRLA/EOMI CN 2-12 grossly intact AL x 4 5/5 BUE, BLE Clear speech Swelling over left eye Neuro Check Frequency: per routine Urinary Catheter in Place: No - Physician Discussed Patient with : Debbie Neurosurgery Physical Exam - Vitals, I&O, Labs I and O 09/24/18 09/25/18 09/26/18 05:59 05:59 05:59 Intake Total 1416.5 2139 Output Total 1045 145 Balance 371.5 1993 Weight 63.503 kg Intake: Oral (ml) 350 1400 IV Intake (ml) 1051 IV Infused (ml) 15.5 739 Ns 1,000 ml @ 75 mls/hr 739 IV CONT JULIET Rx#: [id number] niCARdipine/NACL 200 ml @ 15.5 Titrate IV PRN PRN Rx#: [id number] Output: Urine (ml) 835 60 Bedpan 300 Bedside Commode 60 Catheter 535 Emesis (ml) 200 CHRISTAL Drain Output (ml) 10 85 #1 Right Head Jayant 10 85 Das Other: Number of Voids Bedside Commode 1 Incontinence 1 4 Number of Stools Bedpan 0 Bedside Commode 1 Vital Signs Temp Pulse Resp BP Pulse Ox 36.5 C 73 16 129/103 H 100 09/25/18 07:48 09/25/18 07:48 09/25/18 07:48 09/25/18 07:48 09/25/18 07:48 Laboratory Results 09/25/18 04:53 09/25/18 04:53 ICD10 Worksheet Patient Problems: Problems Problem Status Onset Brain tumor Acute
[2018-09-25] MEDS: FAMOTIDINE 20 MG TAB PO SCH ×2 (08:49→20:38)
[2018-09-25] MEDS: levETIRAcetam 500 MG TAB PO SCH ×2 (08:50→20:39)
[2018-09-25] MEDS: SODIUM CHLORIDE 1,000 MG TAB PO SCH ×2 (08:50→17:32)
[2018-09-25] MEDS: CHOLECALCIFEROL VIT D3 1,000 UNITS TAB PO SCH ×2 (08:50→20:39)
[2018-09-25] MEDS: SENNOSIDES/DOCUSATE SODIUM TAB PO SCH ×2 (08:52→20:39)
--- NOTE | 2018-09-25 11:09 | GCON ---
[f rep st] CONSULTATION NEUROLOGY CONSULT REFERRING PHYSICIAN: Jamar Henley MD CHIEF COMPLAINT: Strokes in the setting of meningioma resection. HISTORY OF PRESENT ILLNESS: Martha Villeda is a very pleasant 68-year-old lady who apparently presented to her primary care physician with some vague symptoms of difficulty with balance for 1 week and a fall. Because of these symptoms, she was sent to get a head CT, and a large mass was found in the left frontal lobe homogeneously enhancing with an extra-axial location suggestive of meningioma. In addition, there was a left posterior fossa meningioma and a 3rd area near the vertex that likely represents a 3rd meningioma. In addition, during this initial MRI, there were diffusion-weighted abnormalities in the left cerebellar and high bilateral parietal lobes in addition to the falx. She underwent resection due to the large size, edema, and [id number]-[id number] shift of the meningioma. She had a postop MRI, which showed additional areas of restricted diffusion. The patient has no referable symptoms to these acute, small areas of infarct. She has no cardiac history that she is aware of. No thrombophilia history personally or in her family history. Because of these findings, she had a carotid ultrasound and CT of the head and neck, which showed no acute vascular abnormalities. Echocardiogram done yesterday showed some sktjb-fk-jydk shunt with bubble study and an aneurysmal atrial septum. REVIEW OF SYSTEMS: 10-point review was done only pertinent to the HPI. For past medical history, social history, family history, home medications, allergies, see Dr. Muir's note. PHYSICAL EXAM: VITAL SIGNS: Blood pressure is 121/62. She is afebrile 36.5. O2 sats at 100%. GENERAL: She is awake and alert, very pleasant. She has some postoperative ecchymosis over the left upper facial region. NEURO: She names 5/5, follows commands 5/5, and repeats 5/5. No aphasia. Cranial nerve exam shows symmetric facial strength and sensation. On confrontational visual field exam, I cannot find any obvious defects. On motor exam, she has no focal weakness. No drift. Coordination shows normal ubgrfr-cbvt-mrntll bilaterally. IMPRESSION/PLAN: 1. Multifocal meningiomas. 2. Status post resection of left frontal meningioma. 3. Multiple, acute bilateral diffusion-weighted abnormalities on brain MRI. The underlying etiology of these small areas of cerebral infarction are not clear. We had a long discussion with the patient regarding differential diagnosis, including generalized hypercoagulability associated with a large tumor. We discussed the possibility of a cardioembolic phenomenon. Her echocardiogram does show some shunting and an aneurysmal atrial septum. We will obtain bilateral lower extremity ultrasounds to assess for any DVT that could have crossed from right to left and caused stroke. In addition, we will consult Cardiology to review her surface echo and consider EMILY to exclude a clot in her atrial appendage or any other significant abnormalities. We will add a thrombophilia panel as well. I have spoken to Dr. Lewis, her neurosurgeon, who agrees to start aspirin as soon as possible from a postoperative surgical standpoint. Thankfully, there are no obvious neurologic deficits from the areas of restricted diffusion. We will follow up on the above recommendations and testing. We appreciate the consultation. Seventy total minutes floor time reviewing records, imaging, or 50% in counseling and coordination of care. /[id number]/MODL MTDD
--- NOTE | 2018-09-25 11:10 | ASMTCMCOM ---
CM Note CM Note Notes: Inpt rehab initiating auth today. CM to follow. Plan: inpatient rehab. Date Signed: 09/25/2018 11:09 AM Electronically Signed By:ELIANA Damian
--- NOTE | 2018-09-25 12:20 | PDINTPN ---
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 Doing well. Bilateral areas of HARBOR MASTER ischemia consistent with stroke. Workup in progress. Appreciate Neurology input. No evidence of cerebrovascular disease. No lower extremity thrombus found. With the aneurysmal atrial septum and the apparent ASD, this may be the source for recurrent embolic stroke? No history of heart disease however, and no significant ectopy or arrhythmias seen on monitor Cardiology consultation requested for EMILY and their input. Hypercoagulability panel pending. Hyponatremia. Sodium 129 today. Will increase sodium chloride tablets to three times daily. Sodium is being followed. DVT prophylaxis: On enoxaparin. GI prophylaxis: Eating, plus famotidine. Hypertension: Blood pressure is fine, under 140, without specific therapy currently. Acute blood-loss anemia: Hematocrit 24, stable. No evidence of ongoing bleeding. Plan: Continue present care in the ICU. Cardiology consultation requested. Await further pending studies. Restart aspirin when okay with neuro surgery. Increase sodium chloride. Follow electrolytes, CBC. 35 min of critical care time spent directly with the patient. Discussed issues with neuro surgery, Neurology, nursing, physical therapy, and the ICU multi disciplinary team. Subjective: Doing well, no complaints. She did have a presyncopal episode when walking with physical therapy earlier today. She denies weakness or cognitive dysfunction Objective: Vital Signs Temp Pulse Resp BP Pulse Ox 36.5 C 70 15 116/72 95 09/25/18 11:43 09/25/18 11:43 09/25/18 11:43 09/25/18 11:43 09/25/18 11:43 Laboratory Results 09/25/18 04:53 09/25/18 04:53 09/24/18 09/25/18 09/26/18 05:59 05:59 05:59 Intake Total 1416.5 2139 Output Total 1045 145 Balance 371.5 1993 PT 13.3 SEC (12.0-15.0) 09/20/18 15:39 INR 0.99 (0.83-1.16) 09/20/18 15:39 Carotid ultrasound: Within normal limits CT angiogram of head and neck: No significant abnormalities found Bilateral lower extremity ultrasound: Negative DVT Cardiac echo: Aneurysmal atrial septum with a atrial septal defect/positive bubble study Physical Exam - Physical Exam General Appearance: alert, no apparent distress EENT: PERRL/EOMI, other (On room air), No normal ENT inspection (Evolving ecchymosis and swelling around left orbit) Neck: normal inspection Respiratory: lungs clear, normal breath sounds Cardiac/Chest: regular rate, rhythm Abdomen: normal bowel sounds, non-tender, soft Pelvic Exam: other (No Lima catheter) Skin: warm/dry, pallor Extremities: No pedal edema Neuro/Psych: no motor/sensory deficits (Moves all extremities equally with adequate strength. Some gait difficulties), oriented x 3, cognition abnormalities (Probable mild deficits present, inattentive, somewhat slow in responses and communications) ICD10 Worksheet Patient Problems: Problems Problem Status Onset Brain tumor Acute
--- NOTE | 2018-09-25 12:57 | HOSPPROG ---
Hospitalist Progress Note Assessment/Plan: #Large left frontal mass: causing cerebral edema, expressive aphasia. -s/p craniotomy, POD#2 -Dex q6, Keppra per Neurosurgery -SBP<140 -Brain MRI performed yesterday which shows 90% resection # Bilateral areas of [employer]OUD ENGAGEMENT [employer]NER ischemia consistent with stroke. - Neurology consulted, no evidence of cerebrovascular disease. - With the aneurysmal atrial septum and the apparent ASD, this may be the source for recurrent embolic stroke - Cardiology consulted for further evaluation, likely EMILY - Hypercoagulability panel pending. #Hypokalemia: repleted #Hyponatremia: SIADH with brain mass and urine lytes c/w it. Salt tabs increased to TID, continue to fluid restrict, Na 129 this AM #Metabolic encephalopathy: due to mass, cerebral edema. Improved this AM #DVT ppx: SCDs Disp: inpatient, PT Subjective: Patient reports mild headache this morning Objective: Vital Signs Temp Pulse Resp BP Pulse Ox 36.5 C 70 15 116/72 95 09/25/18 11:43 09/25/18 11:43 09/25/18 11:43 09/25/18 11:43 09/25/18 11:43 Laboratory Results 09/25/18 04:53 09/25/18 04:53 09/24/18 09/25/18 09/26/18 05:59 05:59 05:59 Intake Total 1416.5 2139 Output Total 1045 145 Balance 371.5 1993 PT 13.3 SEC (12.0-15.0) 09/20/18 15:39 INR 0.99 (0.83-1.16) 09/20/18 15:39 - Physical Exam Constitutional: chronically ill appearing Eyes: PERRL, other (bruising around L eye ) Ears, Nose, Mouth, Throat: moist mucous membranes Cardiovascular: regular rate and rhythym Respiratory: no respiratory distress Gastrointestinal: soft, non-tender abdomen Skin: warm Musculoskeletal: generalized weakness Neurologic: AAOx3 Psychiatric: interacting appropriately ICD10 Worksheet Patient Problems: Problems Problem Status Onset Brain tumor Acute
--- NOTE | 2018-09-25 13:14 | GCON ---
[f rep st] CONSULTATION CARDIOLOGY CONSULTATION DATE OF CONSULTATION: 09/25/2018 REFERRING PHYSICIAN: Jamar Henley MD REASON FOR CONSULTATION: Probable patent foramina ovale and possible cardioembolic findings on brain MRI. HISTORY: This patient is a 68-year-old female with no prior cardiac history. She recently presented to her PCP with balance difficulties including a fall during which she struck her face. The patient is clear that this was a mechanical fall and not a syncopal spell. An outpatient head CT was obtain ed which demonstrated a large frontal meningioma. The patient underwent resection of her meningioma 2 days ago. Yesterday, a postoperative brain MRI demonstrated findings suggestive of bilateral parie paula, occipital, and cerebellar acute infarctions. The patient does not have any focal neurologic sym ptoms. An echocardiogram was obtained which demonstrated normal left ventricular systolic function a nd no valvular heart disease. However, an aneurysmal interatrial septum was seen, and her agitated s rey bubble study was positive, suggesting a patent foramina ovale. The carotid ultrasound demonstr ated tortuosity but no evidence of atherosclerosis. A CTA of the head and neck demonstrated patent b ut small carotid arteries bilaterally. Again, there was no evidence for atherosclerosis. Prior to this hospitalization, the patient denies any prior cardiac history. She has never undergone any specific cardiac testing. She does have cardiovascular risk factors of hypertension and hyperli pidemia. She denies any history of chest discomfort, palpitations, or syncope. She did have a near- syncopal episode this morning when Physical Therapy got her out of bed. This was likely a simple ort hostatic event. There were no significant arrhythmias recorded on telemetry. PAST MEDICAL HISTORY: Her past medical history includes depression, type 2 diabetes, peptic ulcer di sease, hyperlipidemia, hypertension, thyroid nodule, osteoporosis, pheochromocytoma, and skin cancer. PAST SURGICAL HISTORY: Includes resection of her pheochromocytoma and a thyroid biopsy. FAMILY HISTORY: Noncontributory. MEDICATIONS: Please refer to the electronic record for her list of home medications. Amiloride is h er only medication relevant to her cardiovascular status. ALLERGIES: Hydrochlorothiazide, sulfa, and ibuprofen. SOCIAL HISTORY: She is . She is a nonsmoker. Alcohol consumption is minimal. REVIEW OF SYSTEMS: Notable for the balance issues which prompted her workup. Otherwise, 10-point re view was negative. PHYSICAL EXAMINATION: VITAL SIGNS: Blood pressure 116/72. Heart rate 70 with sinus rhythm on the m onitor. O2 saturation 95% on room air. GENERAL: This is a well-developed, well-nourished woman in no acute distress. She is sitting in a chair at the bedside. She is alert and oriented but slightly delayed in answering questions. HEAD AND NECK: No scleral icterus. Surgical bandages related to er craniotomy are present. Mucous membranes are moist. Carotid pulses 2+ without bruits. There is no JVD. CHEST: Lung del cid clear to auscultation bilaterally. CARDIAC: Regular rate and rhythm wi th a normal S1 and S2. There is no murmur or gallop. ABDOMEN: Soft, nontender, nondistended, with normal bowel sounds. EXTREMITIES: 2+ pulses and no peripheral edema. LABORATORY STUDIES: Sodium 129, potassium 3.6, BUN and creatinine of 15 and 0.6. Her CBC demonstrat es a white blood cell count of 8.96 with hemoglobin and hematocrit of 8.5 and 24.2. Lipid panel from October of 2016 demonstrated a total cholesterol of 174 with HDL 55, LDL 70, and triglycerides 247. ECG: An ECG performed 3 days ago demonstrated normal sinus rhythm. There were no Q-waves or conduct ion system disturbances. No ST-T wave changes suggestive of ischemia. IMPRESSION AND PLAN: This is a 68-year-old woman who recently presented with a frontal meningioma. Postoperative MRI demonstrates possible acute infarcts in the parietal, occipital, and cerebellar reg ions bilaterally. Her echocardiogram demonstrates an aneurysmal interatrial septum with a probable p atent foramen ovale. She has not had any arrhythmias on telemetry. Her brain imaging raises the que stion of cardioembolism. Will plan for transesophageal echocardiography at some point prior to her discharge. We will allow [facility] to continue her postoperative recovery for another day or so, but we should be able to perform her EMILY prior to the end of this week. When it is safe from a neurosurgical standpoint, I think she kinga uld initiate daily aspirin therapy. Finally, we will arrange for a 30-day outpatient event monitor a s surveillance for occult atrial fibrillation. /[id number]/MODL
[2018-09-25] MEDS: ASPIRIN EC 81 MG TAB PO SCH (14:55)
[2018-09-25] MEDS: CITALOPRAM 20 MG TAB PO SCH (20:39)
[2018-09-26] MEDS: ACETAMINOPHEN 500 MG TAB PO SCH ×4 (00:03→20:12)
[2018-09-26] MEDS: DEXAMETHASONE 4 MG/ML VIAL IVP SCH ×4 (00:09→18:07)
--- NOTE | 2018-09-26 07:53 | SOAPPROG ---
SOAP Progress Note Assessment/Plan: Date of Surgery: 09/23/18 Post Op Day: 3 Assessment/Plan: Assessment: 68 y/o female with headaches, expressive aphasia, dizziness who was found to have a large left frontal mass resulting in brain compression and cerebral edema with midline shift. POD #3 s/p left frontal craniotomy for tumor resection Plan: -Subgaleal CHRISTAL to bulb suction, maintaining suction. Leave in for now. -CTA head and neck was reviewed. Carotid US shows no flow limiting stenosis -Q2hr neuro checks -doing well this am -Keep SBP less than 140 -Post op MRI reviewed that shows greater than 90% resection -Continue Decadron 4mg q6 -Continue Keppra 750mg bid -Discussed patient with Dr Lewis -Please notify NS with any change in neuro/motor exam Subjective: Awake and alert. NAD. Sitting in chair. No new events or concerns. No f/c/n/ v/d. Objective: AAxO x 4 PERRLA/EOMI CN 2-12 grossly intact AL x 4 5/5 BUE, BLE Clear speech Swelling over and underl left eye Dressing: Intact, dry CHRISTAL: 40 ml thumbprint suction Pathology: Who Grade 1 meningioma 09/26/18 07:52 Objective: Vital Signs Temp Pulse Resp BP Pulse Ox 36.7 C 66 13 137/66 H 94 09/26/18 04:00 09/26/18 06:00 09/26/18 06:00 09/26/18 06:00 09/26/18 06:00 Laboratory Results 09/26/18 03:15 09/26/18 03:15 09/25/18 09/26/18 09/27/18 05:59 05:59 05:59 Intake Total 2139 1470 Output Total 145 340 Balance 1993 1130 PT 13.3 SEC (12.0-15.0) 09/20/18 15:39 INR 0.99 (0.83-1.16) 09/20/18 15:39 ICD10 Worksheet Patient Problems: Problems Problem Status Onset Brain tumor Acute
[2018-09-26] MEDS: ENOXAPARIN 40 MG/0.4 ML SYR SC SCH (08:42)
[2018-09-26] MEDS: levETIRAcetam 500 MG TAB PO SCH ×2 (08:42→20:20)
[2018-09-26] MEDS: ASPIRIN EC 81 MG TAB PO SCH (08:43)
[2018-09-26] MEDS: CHOLECALCIFEROL VIT D3 1,000 UNITS TAB PO SCH ×2 (08:43→20:20)
[2018-09-26] MEDS: FAMOTIDINE 20 MG TAB PO SCH ×2 (08:43→20:20)
[2018-09-26] MEDS: SODIUM CHLORIDE 1,000 MG TAB PO SCH ×3 (08:43→18:08)
[2018-09-26] MEDS: SENNOSIDES/DOCUSATE SODIUM TAB PO SCH ×2 (08:53→20:11)
--- NOTE | 2018-09-26 09:39 | HOSPPROG ---
Hospitalist Progress Note Assessment/Plan: #Large left frontal mass: causing cerebral edema, expressive aphasia. s/p craniotomy, POD#3 -cont Dex q6, Keppra per Neurosurgery -SBP goal <140 -Brain MRI post-op shows 90% resection # Bilateral cerebral infarcts consistent with stroke. Could be cardioembolic with ASD, unclear how this relates to above issue, may have been thrombophilic related to brain mass, though not typical with non-malignant process. - Neurology following, discussed with Dr. Fuentes, appreciate assistance - With the aneurysmal atrial septum and apparent ASD, this may be source of embolic stroke, will need further consideration of ASD closure in outpt setting - EMILY tentatively planned for per cards on Monday - Hypercoagulability panel pending - start ASA 325 when deemed safe by neurosurg (I've reached out to their service ) #Hypokalemia: repleted #Hyponatremia: SIADH with brain mass and urine lytes c/w it. - tighten fluid restriction to 1200 mL - cont salt tabs TID #Metabolic encephalopathy: due to mass, cerebral edema. Improved this AM #DVT ppx: SCDs Disp: inpatient, PT Subjective: Pt feels ok, denies headache, vision changes or pain. RN reports occasional loss of motor function on left side, which is transient. No fevers. Objective: Vital Signs Temp Pulse Resp BP Pulse Ox 36.9 C 58 L 16 140/75 H 97 09/26/18 07:47 09/26/18 07:47 09/26/18 07:47 09/26/18 07:47 09/26/18 07:47 Laboratory Results 09/26/18 03:15 09/26/18 03:15 09/25/18 09/26/18 09/27/18 05:59 05:59 05:59 Intake Total 2139 1470 Output Total 145 340 Balance 1993 1130 PT 13.3 SEC (12.0-15.0) 09/20/18 15:39 INR 0.99 (0.83-1.16) 09/20/18 15:39 - Physical Exam Constitutional: no apparent distress Eyes: PERRL Ears, Nose, Mouth, Throat: moist mucous membranes Cardiovascular: regular rate and rhythym Respiratory: no respiratory distress, clear to auscultation Gastrointestinal: normoactive bowel sounds, soft, non-tender abdomen Skin: warm Musculoskeletal: full muscle strength Neurologic: AAOx3, other (craniotomy with CHRITSAL drain in place) Psychiatric: interacting appropriately ICD10 Worksheet Patient Problems: Problems Problem Status Onset Brain tumor Acute
--- NOTE | 2018-09-26 09:41 | NEUROPROG ---
Assessment: 1. Multifocal meningiomas 2. Status post resection of left frontal meningioma 3. Cryptogenic strokes The bilateral lower extremity ultrasounds did not show any deep venous thrombosis. Cardiology has consulted, we appreciate their input. She will be scheduled for EMILY prior to discharge. Thrombophilia panel is pending. Recommendations: 1. Aspirin daily for vascular prophylaxis when okay per Neurosurgery 2. EMILY prior to discharge to better evaluate PFO, atrial septum and atrial appendage 3. Outpatient event monitor to screen for paroxysmal atrial fibrillation 4. We discussed possible PFO closure down the line based on further workup. We may have her see a stroke subspecialist to review her history as well as an outpatient - due to the unclear relationship between the meningiomas and stroke. Subjective: She feels better Less headache, more steady Objective: Vital Signs Temp Pulse Resp BP Pulse Ox 36.9 C 58 L 16 140/75 H 97 09/26/18 07:47 09/26/18 07:47 09/26/18 07:47 09/26/18 07:47 09/26/18 07:47 Laboratory Results 09/26/18 03:15 09/26/18 03:15 09/25/18 09/26/18 09/27/18 05:59 05:59 05:59 Intake Total 2139 1470 Output Total 145 340 Balance 1994 1130 PT 13.3 SEC (12.0-15.0) 09/20/18 15:39 INR 0.99 (0.83-1.16) 09/20/18 15:39 Awake and alert Language is fluent conversation No drift 35 total minutes floor time; over 50% counseling coordination of care. Allergies/Adverse Reactions: ibuprofen [From Advil] Allergy (Intermediate, Verified 09/20/18 18:54) sob Sulfa (Sulfonamide Antibiotics) Allergy (Intermediate, Verified 09/20/18 14:33)
--- NOTE | 2018-09-26 11:05 | PDINTPN ---
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 Doing well. She may be a candidate for postoperative radiation therapy in light of her subtotal resection. I will discuss this with Oncology. Bilateral areas of YAM CURER ischemia consistent with stroke. Subtle motor and cognitive deficits are present. Workup in progress. Appreciate Neurology input. No evidence of cerebrovascular disease. No lower extremity thrombus found. With the aneurysmal atrial septum and the apparent ASD, this may be the source for recurrent embolic stroke? No history of heart disease however, and no significant ectopy or arrhythmias seen on monitor Cardiology considering EMILY today. Hypercoagulability panel pending. Hyponatremia. Sodium 129, stable. On sodium chloride tablets to three times daily as well as fluid restriction. Sodium is being followed. DVT prophylaxis: On enoxaparin. GI prophylaxis: Eating, plus famotidine. Hypertension: Blood pressure is fine, under 140, without specific therapy currently. Acute blood-loss anemia: Hematocrit 23, stable. No evidence of ongoing bleeding. Plan: Continue present care in the ICU on step-down. Cardiology consultation appreciated: For possible EMILY today. Await further pending studies. Discussed with Oncology. Follow electrolytes, CBC. 35 min of critical care time spent directly with the patient. Discussed issues with Neurology, nursing, physical therapy, and the ICU multi disciplinary team. Subjective: No complaints. Denies significant headache. Feels her cognition and strength are good. Objective: Vital Signs Temp Pulse Resp BP Pulse Ox 36.9 C 58 L 16 140/75 H 97 09/26/18 07:47 09/26/18 07:47 09/26/18 07:47 09/26/18 07:47 09/26/18 07:47 Laboratory Results 09/26/18 03:15 09/26/18 03:15 09/25/18 09/26/18 09/27/18 05:59 05:59 05:59 Intake Total 2139 1470 Output Total 145 340 Balance 1993 1130 PT 13.3 SEC (12.0-15.0) 09/20/18 15:39 INR 0.99 (0.83-1.16) 09/20/18 15:39 Laboratory Tests 09/26/18 03:15 Calcium 8.0 L Physical Exam - Physical Exam General Appearance: alert, no apparent distress, other (Up in chair) EENT: PERRL/EOMI, No normal ENT inspection (Evolving ecchymosis and swelling around left orbit. Craniotomy dressing over scalp) Neck: normal inspection (No JVD) Respiratory: lungs clear Cardiac/Chest: regular rate, rhythm, systolic murmur (Soft), No gallop Abdomen: normal bowel sounds, non-tender, soft Extremities: pedal edema (Trace) Neuro/Psych: no motor/sensory deficits (Moves all extremities equally but gait still unsteady, difficult for her), cognition abnormalities (Mild cognitive impairment persists. Slow to respond, somewhat tangential at times) ICD10 Worksheet Patient Problems: Problems Problem Status Onset Brain tumor Acute
--- NOTE | 2018-09-26 12:11 | ASMTCMCOM ---
CM Note CM Note Notes: CM met with pt's yesterday. CM provided support and provided education on plans for inpatient rehab as pt continues to progress. Pt discussed in rounds, inpt rehab still likely plan. Pt continues to progress. Plan: inpatient rehab. Date Signed: 09/26/2018 12:11 PM Electronically Signed By:ELIANA Damian
--- NOTE | 2018-09-26 14:25 | PDCARPN ---
Cardiology Progress Note Assessment/Plan: 68 year-old female status post resection of a frontal meningioma. Has possible cardioembolic findings on MRI of the brain. Transthoracic echo demonstrates normal left ventricular systolic function, age related valvular changes without hemodynamically significant valvular dysfunction, aneurysmal interatrial septum , and probable patent foramen ovale. No arrhythmias on telemetry. - We will tentatively plan for transesophageal echo on Monday. Awaiting response from the neurosurgery service as to whether sedation, coughing, or gagging pose any concerns related to her recent surgery and indwelling drain. - Should initiate daily aspirin 325 mg when acepptable from post-op standpoint. - Will arrange for 30 day outpatient event monitor as surveillance for occult atrial fibrillation. 09/26/18 14:23 Subjective: No complaints. Reviewed/Discussed With: family Objective: Vital Signs (8 Hrs) Temp Pulse Resp BP Pulse Ox 09/26/18 11:27 36.6 C 67 17 110/76 98 09/26/18 10:00 87 15 101/55 L 98 09/26/18 07:47 36.9 C 58 L 16 140/75 H 97 Intake/Output (24 Hrs) 09/25/18 09/26/18 09/27/18 05:59 05:59 05:59 Intake Total 2139 1470 Output Total 145 340 100 Balance 1993 1130 -100 Intake: Oral (ml) 1400 1470 IV Infused (ml) 739 Ns 1,000 ml @ 75 mls/hr 739 IV CONT JULIET Rx#: [id number] Output: Urine (ml) 60 300 100 Bedside Commode 60 300 100 CHRISTAL Drain Output (ml) 85 40 #1 Right Head Jayant 85 40 Das Other: Number of Voids Bedside Commode 1 3 1 Diapers/Briefs 1 Incontinence 4 1 Number of Stools Bedside Commode 1 Result Diagrams: 09/26/18 03:15 09/26/18 03:15 - Physical Exam Constitutional: no apparent distress Eyes: anicteric sclera Ears, Nose, Mouth, Throat: moist mucous membranes Cardiovascular: regular rate and rhythm, no gallops, systolic murmur Respiratory: clear to auscultate bilat Gastrointestinal: normoactive bowel sounds, no tenderness, no masses Skin: no rashes, no edema Neurologic: AAOx3 Psychiatric: not anxious ICD10 Worksheet Patient Problems: Problems Problem Status Onset Brain tumor Acute
[2018-09-26] MEDS: CITALOPRAM 20 MG TAB PO SCH (20:20)
[2018-09-27] MEDS: DEXAMETHASONE 4 MG/ML VIAL IVP SCH ×4 (00:32→18:09)
[2018-09-27] MEDS: ACETAMINOPHEN 500 MG TAB PO SCH ×3 (06:07→21:32)
--- NOTE | 2018-09-27 07:59 | NEUSURGPN ---
Assessment/Plan: 68 y/o female with headaches, expressive aphasia, dizziness who was found to have a large left frontal mass resulting in brain compression and cerebral edema with midline shift. POD#4 s/p left frontal craniotomy for tumor resection Plan: -Subgaleal CHRISTAL to bulb suction, 10ml output overnight, will leave for now -Q2hr neuro checks -Keep SBP less than 140 -Post op MRI greater than 90% resection -CTA head and neck reviewed, Carotid US did not show any flow limiting stenosis. We appreciate Neurology and Cardiology input on workup for bilateral occipital infarct seen on post op MRI. Cardiology planning for EMILY tomorrow. -Continue Decadron 4mg q6 -Continue Keppra 750mg bid -Path=WHO grade 1 Meningioma -OK to start ASA 325mg today -Discussed patient with Dr Leiws -Please notify NS with any change in neuro/motor exam Subjective: doing well, denies headache Objective: AAxO x 4 PERRLA/EOMI CN 2-12 grossly intact AL x 4 5/5 BUE, BLE Clear speech Swelling over and under left eye Incision/dressing CDI CHRISTAL patent Neuro Check Frequency: per routine Urinary Catheter in Place: No - Physician Discussed Patient with : Debbie Neurosurgery Physical Exam - Vitals, I&O, Labs I and O 09/26/18 09/27/18 09/28/18 05:59 05:59 05:59 Intake Total 1470 1500 Output Total 340 140 Balance 1130 1360 Intake: Oral (ml) 1470 1500 Output: Urine (ml) 300 100 Bedside Commode 300 100 CHRISTAL Drain Output (ml) 40 40 #1 Right Head Jayant 40 40 Das Other: Number of Voids Bedside Commode 3 1 Diapers/Briefs 3 Incontinence 1 Vital Signs Temp Pulse Resp BP Pulse Ox 36.4 C 59 L 18 119/71 95 09/27/18 07:33 09/27/18 07:33 09/27/18 07:33 09/27/18 07:33 09/27/18 07:33 Laboratory Results 09/27/18 05:37 09/27/18 05:37 ICD10 Worksheet Patient Problems: Problems Problem Status Onset Brain tumor Acute
--- NOTE | 2018-09-27 09:16 | NEUROPROG ---
Assessment: 1. Multifocal meningiomas 2. Status post resection of left frontal meningioma 3. Cryptogenic strokes The bilateral lower extremity ultrasounds did not show any deep venous thrombosis. Cardiology has consulted, we appreciate their input. She will be scheduled for EMILY prior to discharge (probably Monday). Thrombophilia panel is pending. Recommendations: 1. Aspirin 325 mg (coated with meals) daily for vascular prophylaxis when okay per Neurosurgery 2. EMILY prior to discharge to better evaluate PFO, atrial septum and atrial appendage 3. Outpatient event monitor to screen for paroxysmal atrial fibrillation 4. We discussed possible PFO closure down the line based on further workup. We may have her see a stroke subspecialist to review her history as well as an outpatient - due to the unclear relationship between the meningiomas and stroke. Subjective: Headache improved Objective: Vital Signs Temp Pulse Resp BP Pulse Ox 36.4 C 60 15 123/72 H 95 09/27/18 07:33 09/27/18 08:29 09/27/18 08:29 09/27/18 08:29 09/27/18 08:29 Laboratory Results 09/27/18 05:37 09/27/18 05:37 09/26/18 09/27/18 09/28/18 05:59 05:59 05:59 Intake Total 1470 1500 Output Total 340 140 Balance 1130 1360 PT 13.3 SEC (12.0-15.0) 09/20/18 15:39 INR 0.99 (0.83-1.16) 09/20/18 15:39 Awake and alert No drift Follows two-step commands 35 total minutes floor time; over 50% counseling and coordination of care. Allergies/Adverse Reactions: ibuprofen [From Advil] Allergy (Intermediate, Verified 09/20/18 18:54) sob Sulfa (Sulfonamide Antibiotics) Allergy (Intermediate, Verified 09/20/18 14:33)
[2018-09-27] MEDS: levETIRAcetam 500 MG TAB PO SCH ×2 (09:26→21:31)
[2018-09-27] MEDS: FAMOTIDINE 20 MG TAB PO SCH ×2 (09:27→21:31)
[2018-09-27] MEDS: ASPIRIN EC 325 MG TAB PO SCH (09:27)
[2018-09-27] MEDS: CHOLECALCIFEROL VIT D3 1,000 UNITS TAB PO SCH ×2 (09:27→21:31)
[2018-09-27] MEDS: SENNOSIDES/DOCUSATE SODIUM TAB PO SCH ×2 (09:27→21:32)
[2018-09-27] MEDS: SODIUM CHLORIDE 1,000 MG TAB PO SCH ×3 (09:28→18:09)
[2018-09-27] MEDS: ENOXAPARIN 40 MG/0.4 ML SYR SC SCH (09:28)
--- NOTE | 2018-09-27 11:00 | HOSPPROG ---
Hospitalist Progress Note Assessment/Plan: #Large left frontal mass: with cerebral edema, expressive aphasia. s/p craniotomy, POD #4 -cont Dex q6, Keppra per Neurosurgery -SBP goal <140, has not required cardene -Brain MRI post-op shows 90% resection, planning for oncology consult as may warrant treatment / radiation # Bilateral cerebral infarcts consistent with stroke. Could be cardioembolic with ASD, unclear how this relates to above issue. May have been thrombophilic related to brain mass, though not typical with non-malignant process. - Neurology following, appreciate assistance - With the aneurysmal atrial septum and apparent ASD, this may be source of embolic stroke, will need further consideration of ASD closure in outpt setting - EMILY tentatively planned for Monday per cards - Hypercoag panel pending - cont ASA 325 mg daily #Hypokalemia: repleted #Hyponatremia: could be SIADH from brain mass, though prior urine Na was low at 14, which is more c/w volume depletion - recheck urine Na and urine osm - cont fluid restriction to 1200 mL - cont salt tabs TID #Metabolic encephalopathy: due to mass, cerebral edema. Improved. #DVT ppx: Lovenox Disp: inpatient, can probably transfer to med/surg if ok with neurosurg Subjective: Pt feels ok, no complaints. Denies headache or vision changes. No focal weakness. Taking po well, though fluid restricted. Objective: Vital Signs Temp Pulse Resp BP Pulse Ox 36.4 C 60 15 123/72 H 95 09/27/18 07:33 09/27/18 08:29 09/27/18 08:29 09/27/18 08:29 09/27/18 08:29 Laboratory Results 09/27/18 05:37 09/27/18 05:37 09/26/18 09/27/18 09/28/18 05:59 05:59 05:59 Intake Total 1470 1500 Output Total 340 140 Balance 1130 1360 PT 13.3 SEC (12.0-15.0) 09/20/18 15:39 INR 0.99 (0.83-1.16) 09/20/18 15:39 - Physical Exam Constitutional: no apparent distress Eyes: PERRL Ears, Nose, Mouth, Throat: moist mucous membranes, other (craniotomy with CHRISTAL drain) Cardiovascular: regular rate and rhythym Respiratory: no respiratory distress, clear to auscultation Gastrointestinal: normoactive bowel sounds, soft, non-tender abdomen Skin: warm Musculoskeletal: full muscle strength Neurologic: AAOx3 Psychiatric: interacting appropriately ICD10 Worksheet Patient Problems: Problems Problem Status Onset Brain tumor Acute
--- NOTE | 2018-09-27 12:18 | PDCARPN ---
Cardiology Progress Note Assessment/Plan: 68 year-old female status post resection of a frontal meningioma. Has possible cardioembolic findings on MRI of the brain. Transthoracic echo demonstrates normal left ventricular systolic function, age related valvular changes without hemodynamically significant valvular dysfunction, aneurysmal interatrial septum , and probable patent foramen ovale. No arrhythmias on telemetry. - Transesophageal echo tomorrow. - Aspirin 325 mg daily has been started. - Will arrange for 30 day outpatient event monitor as surveillance for occult atrial fibrillation. 09/27/18 12:22 Subjective: No complaints. Objective: Vital Signs (8 Hrs) Temp Pulse Resp BP Pulse Ox 09/27/18 11:42 36.3 C 57 L 14 106/63 95 09/27/18 08:29 60 15 123/72 H 95 09/27/18 07:33 36.4 C 59 L 18 119/71 95 Intake/Output (24 Hrs) 09/26/18 09/27/18 09/28/18 05:59 05:59 05:59 Intake Total 1470 1500 Output Total 340 140 Balance 1130 1360 Intake: Oral (ml) 1470 1500 Output: Urine (ml) 300 100 Bedside Commode 300 100 CHRISTAL Drain Output (ml) 40 40 #1 Right Head Jayant 40 40 Das Other: Number of Voids Bedside Commode 3 1 Diapers/Briefs 3 Incontinence 1 Result Diagrams: 09/27/18 05:37 09/27/18 05:37 - Physical Exam Constitutional: no apparent distress Eyes: anicteric sclera Ears, Nose, Mouth, Throat: moist mucous membranes Cardiovascular: regular rate and rhythm, no murmurs, no gallops Respiratory: clear to auscultate bilat Gastrointestinal: normoactive bowel sounds, no tenderness, no masses Skin: no rashes, no edema Neurologic: AAOx3 Psychiatric: not anxious ICD10 Worksheet Patient Problems: Problems Problem Status Onset Brain tumor Acute
--- NOTE | 2018-09-27 14:11 | PDINTPN ---
Failure Analysis Technician Progress Note Assessment/Plan: Assessment: Meningioma, status post craniotomy/subtotal resection. Doing well. She may be a candidate for postoperative radiation therapy in light of her subtotal resection. Discussed with Oncology: Outpatient referral to radiation therapy likely indicated. Bilateral areas of DEVELOPER PROGRAMMER ischemia consistent with stroke. Subtle motor and cognitive deficits are present. Workup in progress. Appreciate Neurology input. No evidence of cerebrovascular disease. No lower extremity thrombus found. With the aneurysmal atrial septum and the apparent ASD, this may be the source for recurrent embolic stroke? No history of heart disease however, and no significant ectopy or arrhythmias seen on monitor Cardiology considering EMILY tomorrow. Hypercoagulability panel pending. On low-dose aspirin. Hyponatremia. Sodium 128, stable. Consistent with SIADH. On sodium chloride tablets to three times daily as well as fluid restriction. Sodium is being followed. DVT prophylaxis: On enoxaparin. GI prophylaxis: Eating, plus famotidine. Hypertension: Blood pressure is fine, under 140, without specific therapy currently. Acute blood-loss anemia: Hematocrit 23.9, stable. No evidence of ongoing bleeding. Disposition: Likely will need inpatient rehab. Consultation has been put in. Plan: Continue present care in the ICU on step-down. Can transfer to medical- surgical bed if okay with neuro surgery. Cardiology consultation appreciated: For EMILY tomorrow. Await further pending studies. Discussed with Oncology: They likely do not need to see her both feel she probably will need to be evaluated as an outpatient by radiation therapy. Will discuss with neuro surgery as well.. Follow electrolytes, CBC. 35 min of critical care time spent directly with the patient. Discussed issues with Neurology, nursing, physical therapy, and the ICU multi disciplinary team. Subjective: No complaints. She feels she has little stronger. Denies significant pain. Objective: Vital Signs Temp Pulse Resp BP Pulse Ox 36.3 C 57 L 14 106/63 95 09/27/18 11:42 09/27/18 11:42 09/27/18 11:42 09/27/18 11:42 09/27/18 11:42 Laboratory Results 09/27/18 05:37 09/27/18 05:37 09/26/18 09/27/18 09/28/18 05:59 05:59 05:59 Intake Total 1470 1500 Output Total 340 140 Balance 1130 1360 PT 13.3 SEC (12.0-15.0) 09/20/18 15:39 INR 0.99 (0.83-1.16) 09/20/18 15:39 Physical Exam - Physical Exam General Appearance: alert, no apparent distress, other (Up in chair) EENT: PERRL/EOMI, other (On room air), No normal ENT inspection (Evolving ecchymosis related to left orbit, craniotomy dressing remains in place) Neck: normal inspection (No JVD) Respiratory: lungs clear Cardiac/Chest: regular rate, rhythm (No ectopy), No gallop Abdomen: normal bowel sounds, non-tender, soft Skin: warm/dry Extremities: pedal edema (Trace) Neuro/Psych: no motor/sensory deficits (Moves all extremities. Ambulation seems to be going better), cognition abnormalities (Persists, mild) ICD10 Worksheet Patient Problems: Problems Problem Status Onset Brain tumor Acute
[2018-09-27] MEDS: CITALOPRAM 20 MG TAB PO SCH (21:31)
[2018-09-28] MEDS: DEXAMETHASONE 4 MG/ML VIAL IVP SCH ×2 (00:07→06:14)
[2018-09-28] MEDS: ACETAMINOPHEN 500 MG TAB PO SCH ×3 (06:28→20:43)
[2018-09-28] MEDS: CHOLECALCIFEROL VIT D3 1,000 UNITS TAB PO SCH ×2 (08:11→20:46)
[2018-09-28] MEDS: levETIRAcetam 500 MG TAB PO SCH ×2 (08:11→20:46)
[2018-09-28] MEDS: SODIUM CHLORIDE 1,000 MG TAB PO SCH ×4 (08:11→20:46)
[2018-09-28] MEDS: FAMOTIDINE 20 MG TAB PO SCH ×2 (08:14→20:46)
[2018-09-28] MEDS: SENNOSIDES/DOCUSATE SODIUM TAB PO SCH ×2 (08:14→20:43)
--- NOTE | 2018-09-28 09:18 | NEUROPROG ---
Assessment: 1. Multifocal meningiomas 2. Status post resection of left frontal meningioma 3. Cryptogenic strokes The bilateral lower extremity ultrasounds did not show any deep venous thrombosis. Cardiology following. She will be scheduled for EMILY prior to discharge (probably Monday). Thrombophilia panel is pending. Recommendations: 1. Aspirin 325 mg (coated with meals) daily for vascular prophylaxis when okay per Neurosurgery 2. EMILY today to discharge to better evaluate PFO, atrial septum and atrial appendage 3. Outpatient event monitor to screen for paroxysmal atrial fibrillation 4. We discussed possible PFO closure down the line based on further workup. We may have her see a stroke subspecialist to review her history as well as an outpatient - due to the unclear relationship between the meningiomas and stroke. I will review EMILY report and make comments accordingly. Subjective: Feeling better today Objective: Vital Signs Temp Pulse Resp BP Pulse Ox 36.6 C 60 12 128/59 H 99 09/28/18 08:00 09/28/18 08:00 09/28/18 08:00 09/28/18 08:00 09/28/18 08:00 Laboratory Results 09/27/18 05:37 09/28/18 06:25 09/27/18 09/28/18 09/29/18 05:59 05:59 05:59 Intake Total 1500 1600 240 Output Total 140 400 Balance 1360 1200 240 PT 13.3 SEC (12.0-15.0) 09/20/18 15:39 INR 0.99 (0.83-1.16) 09/20/18 15:39 Awake and alert Fluent 35 total minutes floor time; over 50% counseling and coordination of care. Allergies/Adverse Reactions: ibuprofen [From Advil] Allergy (Intermediate, Verified 09/20/18 18:54) sob Sulfa (Sulfonamide Antibiotics) Allergy (Intermediate, Verified 09/20/18 14:33)
--- NOTE | 2018-09-28 09:51 | NEUSURGPN ---
Date of Surgery: 09/23/18 Post Op Day: 5 Assessment/Plan: 68 y/o female with headaches, expressive aphasia, dizziness who was found to have a large left frontal mass resulting in brain compression and cerebral edema with midline shift. POD#5 s/p left frontal craniotomy for tumor resection Plan: -Neuro exam stable -Keep SBP less than 140 -Post op MRI greater than 90% resection -CTA head and neck reviewed, Carotid US did not show any flow limiting stenosis. We appreciate Neurology and Cardiology input on workup for bilateral occipital infarct seen on post op MRI. Cardiology planning for EMILY this afternoon. -Continue Decadron 4mg q6 -Continue Keppra 750mg bid -Path=WHO grade 1 Meningioma -OK for ASA 325mg -Ok to transfer to the floor -Discussed patient with Dr Lewis -Please notify NS with any change in neuro/motor exam Subjective: Doing well this morning. No headache, nausea, vomiting. Objective: Awake. Alert. PERRL. EOMI Facial expression symmetrical Muscle strength full at 5/5 Sensation intact - Physician Discussed Patient with Dr.: Lewis Neurosurgery Physical Exam - Vitals, I&O, Labs I and O 09/27/18 09/28/18 09/29/18 05:59 05:59 05:59 Intake Total 1500 1600 240 Output Total 140 400 Balance 1360 1200 240 Intake: Oral (ml) 1500 1600 240 Output: Urine (ml) 100 400 Bedside Commode 100 400 CHRISTAL Drain Output (ml) 40 #1 Right Head Jayant 40 Das Other: Number of Voids Bedside Commode 1 1 Diapers/Briefs 3 4 Incontinence 1 1 Toilet 1 Vital Signs Temp Pulse Resp BP Pulse Ox 36.6 C 60 12 128/59 H 99 09/28/18 08:00 09/28/18 08:00 09/28/18 08:00 09/28/18 08:00 09/28/18 08:00 Laboratory Results 09/27/18 05:37 09/28/18 06:25 ICD10 Worksheet Patient Problems: Problems Problem Status Onset Brain tumor Acute
[2018-09-28] MEDS ORDERED: *MD ORDERING ONLY-DEXAMETHASONE TAPER PO SCH (10:30)
--- NOTE | 2018-09-28 10:33 | HOSPPROG ---
Hospitalist Progress Note Assessment/Plan: #Large left frontal mass: with cerebral edema, expressive aphasia. s/p craniotomy, POD #5 -cont Dex, taper per neurosurg to 4 mg po q8h, the decrease q2d per directions -cont Keppra per Neurosurgery -SBP goal <140, has not required cardene -Brain MRI post-op shows 90% resection, planning for oncology consult as may warrant treatment / radiation # Bilateral cerebral infarcts consistent with stroke. Could be cardioembolic with ASD, unclear how this relates to above issue. May have been thrombophilic related to brain mass, though not typical with non-malignant process. - Neurology following, appreciate assistance - With the aneurysmal atrial septum and apparent ASD, this may be source of embolic stroke, will need further consideration of ASD closure in outpt setting - EMILY this afternoon per cards - Hypercoag panel pending - cont ASA 325 mg daily - outpt cardiac event monitor planned to search for a fib #Hypokalemia: repleted #Hyponatremia: Likely SIADH 2/2 brain mass. Urine Na increased from 14 to 65, c /w SIADH - cont fluid restriction of 1200 mL - increase salt tabs to QID #Metabolic encephalopathy: due to mass, cerebral edema. Improved. #DVT ppx: Lovenox Disp: inpatient, transfer to med surg with tele, possibly to inpt rehab this afternoon and if not, then would be Monday Subjective: Pt feels ok, she is resting comfortably. Denies pain or headache. No vision changes or weakness. She has no complaints. Objective: Vital Signs Temp Pulse Resp BP Pulse Ox 36.6 C 60 12 128/59 H 99 09/28/18 08:00 09/28/18 08:00 09/28/18 08:00 09/28/18 08:00 09/28/18 08:00 Laboratory Results 09/27/18 05:37 09/28/18 06:25 09/27/18 09/28/18 09/29/18 05:59 05:59 05:59 Intake Total 1500 1600 240 Output Total 140 400 Balance 1360 1200 240 PT 13.3 SEC (12.0-15.0) 09/20/18 15:39 INR 0.99 (0.83-1.16) 09/20/18 15:39 - Physical Exam Constitutional: no apparent distress Eyes: PERRL Ears, Nose, Mouth, Throat: moist mucous membranes, other (craniotomy) Cardiovascular: regular rate and rhythym Respiratory: no respiratory distress, clear to auscultation Gastrointestinal: normoactive bowel sounds, soft, non-tender abdomen Skin: warm Musculoskeletal: full muscle strength Neurologic: AAOx3 Psychiatric: interacting appropriately ICD10 Worksheet Patient Problems: Problems Problem Status Onset Brain tumor Acute
--- NOTE | 2018-09-28 12:34 | ASMTCMCOM ---
CM Note CM Note Notes: Patient has been accepted for [facility] inpatient rehab. She is scheduled for a EMILY today. Inpatient rehab cannot take the patient any later than 4:00 PM today so likely patient will transfer on Monday. She is not yet medically clear to go. CM will follow. Date Signed: 09/28/2018 12:33 PM Electronically Signed By:Mary Cota LCSW
[2018-09-28] MEDS: ASPIRIN EC 325 MG TAB PO SCH (12:39)
[2018-09-28] MEDS: DEXAMETHASONE 4 MG TAB PO SCH ×2 (12:39→17:55)
[2018-09-28] MEDS: ENOXAPARIN 40 MG/0.4 ML SYR SC SCH (12:39)
--- NOTE | 2018-09-28 14:27 | PDHPUP ---
History & Physical Update H&P update statement: This history and physical update is based on an assessment of the patient which was completed after admission or registration (within 24 hours), but prior to the surgery/procedure. H&P update: H&P reviewed & patient examined, no change in patient's condition since H&P completed
[2018-09-28] MEDS ORDERED: PROPOFOL 200 MG/20 ML VIAL ONE (15:23)
[2018-09-28] MEDS ORDERED: NALOXONE HCL 0.4 MG/ML INJ IVP PRN (15:44)
--- NOTE | 2018-09-28 15:44 | POSTANESTH ---
Post Anesthetic Evaluation Cardiovascular Status: Normal, Stable Respiratory Status: Normal, Stable Level of Consciousness/Mental Status: Can Participate in Eval, Mildly Sleepy, Arousable Pain Control: Adequate, Prn Tx Ordered Nausea/Vomiting Control: Adequate, Prn Tx Ordered Complications Possibly Related to Anesthesia: None Noted
--- NOTE | 2018-09-28 15:44 | PDANEPAE ---
ANE History of Present Illness EMILY ANE Past Medical History - Cardiovascular History Hx Hypertension: Yes Hx Arrhythmias: No Hx Chest Pain: No Hx Coronary Artery / Peripheral Vascular Disease: No Hx CHF / Valvular Disease: No Hx Palpitations: No - Pulmonary History Hx Oxygen in Use at Home: No Hx Sleep Apnea: No Sleep Apnea Screening Result - Last Documented: Negative - Endocrine History Hx Diabetes: No - Chronic Pain History Chronic Pain: No ANE Review of Systems Review of Systems: ANE Patient History - Allergies Allergies/Adverse Reactions: ibuprofen [From Advil] Allergy (Intermediate, Verified 09/20/18 18:54) sob Sulfa (Sulfonamide Antibiotics) Allergy (Intermediate, Verified 09/20/18 14:33) - Home Medications Home Medications: aMILoride HCL [Amiloride HCl] 5 mg PO BID 06/05/12 [Last Taken 09/13/18] Cholecalciferol Vit D3 [Vitamin D3 (*)] 1,000 units PO BID 06/08/12 [Last Taken 09/13/18] Citalopram Hydrobromide [Citalopram HBr] 10 mg PO HS 06/08/12 [Last Taken ] Aspirin [Aspirin 325 mg (*)] 325 mg PO DAILY PRN 09/20/18 [Last Taken Unknown] Herbals/Supplements -Info Only 1 ea PO DAILY 09/20/18 [Last Taken 09/13/18] LORazepam [Ativan (*)] 0.5 mg PO BID PRN 09/20/18 [Last Taken 09/16/18] - NPO status NPO Since - Liquids (Date): 09/23/18 NPO Since - Liquids (Time): 00:00 NPO Since - Solids (Date): 09/23/18 NPO Since - Solids (Time): 00:00 - Smoking Hx Smoking Status: Never smoked - Alcohol Use Alcohol Use: Rarely ANE Labs/Vital Signs - Labs Result Diagrams: 09/27/18 05:37 09/28/18 06:25 - Vital Signs Blood Pressure: 144/59 Heart Rate: 59 Respiratory Rate: 13 O2 Sat (%): 96 Height: 172.72 cm Weight: 63.503 kg ANE Physical Exam - Airway Neck exam: FROM Mallampati Score: Class 2 Mouth exam: normal dental/mouth exam - Pulmonary Pulmonary: clear to auscultation - Cardiovascular Cardiovascular: regular rate and rhythym - ASA Status ASA Status: III ANE Anesthesia Plan Anesthesia Plan: GA with mask
--- NOTE | 2018-09-28 15:56 | PDCARPN ---
Cardiology Progress Note Assessment/Plan: 68 year-old female status post resection of a frontal meningioma. Has possible cardioembolic findings on MRI of the brain. Transthoracic echo demonstrates normal left ventricular systolic function, age related valvular changes without hemodynamically significant valvular dysfunction, aneurysmal interatrial septum , and probable patent foramen ovale. No arrhythmias on telemetry. - Transesophageal echo today showed normal LV function and normal appearing valves with mild MR and AR. The interatrial septum was aneurysmal and hypermobile but there was no evidence of patent foramen ovale. - Aspirin 325 mg daily has been started. - The office staff at [facility] has been instructed to contact her to arrange for a 30 day outpatient event monitor as surveillance for occult atrial fibrillation and a followup appointment with me. That information has been entered into her discharge plan in [facility]. - Will sign off. 09/28/18 15:47 Subjective: No complaint. Objective: Vital Signs (8 Hrs) Temp Pulse Resp BP Pulse Ox 09/28/18 15:44 59 L 13 144/59 H 96 09/28/18 12:00 36.4 C 59 L 13 144/59 H 96 09/28/18 08:00 36.6 C 60 12 128/59 H 99 Intake/Output (24 Hrs) 09/27/18 09/28/18 09/29/18 05:59 05:59 05:59 Intake Total 1500 1600 240 Output Total 140 400 Balance 1360 1200 240 Intake: Oral (ml) 1500 1600 240 Output: Urine (ml) 100 400 Bedside Commode 100 400 CHRISTAL Drain Output (ml) 40 #1 Right Head Jayant 40 Das Other: Weight 63.503 kg Number of Voids Bedside Commode 1 1 Diapers/Briefs 3 4 2 Incontinence 1 1 1 Toilet 1 3 Result Diagrams: 09/27/18 05:37 09/28/18 06:25 - Physical Exam Constitutional: no apparent distress Eyes: anicteric sclera Ears, Nose, Mouth, Throat: moist mucous membranes Cardiovascular: regular rate and rhythm, no murmurs, no gallops Respiratory: clear to auscultate bilat Gastrointestinal: normoactive bowel sounds, no tenderness, no masses Skin: no rashes, no edema Neurologic: AAOx3 Psychiatric: not anxious ICD10 Worksheet Patient Problems: Problems Problem Status Onset Brain tumor Acute
[2018-09-28] MEDS: CITALOPRAM 20 MG TAB PO SCH (20:46)
[2018-09-29] MEDS: DEXAMETHASONE 4 MG TAB PO SCH ×3 (03:40→18:46)
[2018-09-29] MEDS: SODIUM CHLORIDE 1,000 MG TAB PO SCH ×3 (06:26→21:51)
[2018-09-29] MEDS: ACETAMINOPHEN 500 MG TAB PO SCH ×3 (06:35→21:52)
[2018-09-29] MEDS: levETIRAcetam 500 MG TAB PO SCH ×2 (09:08→21:53)
[2018-09-29] MEDS: SENNOSIDES/DOCUSATE SODIUM TAB PO SCH ×2 (09:08→21:54)
[2018-09-29] MEDS: FAMOTIDINE 20 MG TAB PO SCH ×2 (09:08→21:54)
[2018-09-29] MEDS: ENOXAPARIN 40 MG/0.4 ML SYR SC SCH ×2 (09:09→11:21)
[2018-09-29] MEDS: CHOLECALCIFEROL VIT D3 1,000 UNITS TAB PO SCH ×2 (09:09→21:53)
[2018-09-29] MEDS: ASPIRIN EC 325 MG TAB PO SCH (09:11)
--- NOTE | 2018-09-29 09:23 | NEUROPROG ---
Assessment: 1. Multifocal meningiomas 2. Status post resection of left frontal meningioma 3. Cryptogenic strokes PATIENT NOT SEEN -- CHART REVIEW NOTE: The bilateral lower extremity ultrasounds did not show any deep venous thrombosis. Thrombophilia panel is pending. EMILY: No PFO. Interatrial septum is aneurysmal and hypermobile. No intracardiac thrombus noted. Telemetry: No AFib noted per EHR notes. Recommendations: 1. Aspirin 325 mg (coated with meals) daily for vascular prophylaxis (okay'ed per Neurosurgery). 2. Outpatient cardiology f/u for event monitor to screen for paroxysmal atrial fibrillation. 3. Neurology outpatient f/u - We may have her see a stroke subspecialist to review her history as well as an outpatient - due to the unclear relationship between the meningiomas and stroke. 4. Check fasting lipids, if LDL > 70 - initiate statin therapy. We will sign off and f/u PRN. Please do not hesitate to call neurology service if any questions or changes in neurologic status. Objective: Vital Signs Temp Pulse Resp BP Pulse Ox 36.5 C 59 L 14 107/56 L 93 09/29/18 07:33 09/29/18 07:33 09/29/18 07:33 09/29/18 07:33 09/29/18 07:33 Laboratory Results 09/27/18 05:37 09/29/18 05:50 09/28/18 09/29/18 09/30/18 05:59 05:59 05:59 Intake Total 1600 1020 Output Total 400 Balance 1200 1020 PT 13.3 SEC (12.0-15.0) 09/20/18 15:39 INR 0.99 (0.83-1.16) 09/20/18 15:39 Allergies/Adverse Reactions: ibuprofen [From Advil] Allergy (Intermediate, Verified 09/20/18 18:54) sob Sulfa (Sulfonamide Antibiotics) Allergy (Intermediate, Verified 09/20/18 14:33)
--- NOTE | 2018-09-29 09:32 | HOSPPROG ---
Hospitalist Progress Note Assessment/Plan: #Large left frontal meningioma: with cerebral edema, expressive aphasia. s/p craniotomy, POD #6. Brain MRI post-op shows 90% resection -cont Dex taper per neurosurg -cont Keppra per Neurosurgery -SBP goal <140, has not required cardene -likely warrants referral to radiation oncology, defer to neurosurg #Unresponsiveness with bradycardia and syncope: during shower this am, HR and BP improved in supine position, suspect vagal event. Neuro exam is normal, but vomiting episode concerning -NS 1L bolus -STAT head CT (see below), will notify neurosurg -STAT labs, ?dropping sodium #Vomiting - may be related to vagal event -STAT head CT as above - reviewed with rads and neurosurg, nothing acute, persistent post-op changes # Bilateral cerebral infarcts consistent with stroke. Could be cardioembolic. No PFO on EMILY. Could be thrombophilic related to brain mass, though not typical with non-malignant process. 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 Urine Na increased from 14 to 65, c /w SIADH - cont fluid restriction of 1200 mL - increased salt tabs to QID, but Na still dropped - add lasix today 20 BID x2 doses - if Na continues to drop, will request renal consult tomorrow #Metabolic encephalopathy: due to mass, cerebral edema. Improved. #DVT ppx: Lovenox Disp: inpatient, transfer back to ICU status. 45 minutes critical care Subjective: Pt ambulated in halls this am, did well. Then during shower, she slumped over on the shower chair and became unresponsive. She woke up when we got her into supine position and followed commands. No headache. No pain. No CP or SOB. SHe then vomited twice. Objective: Vital Signs Temp Pulse Resp BP Pulse Ox 36.5 C 59 L 14 107/56 L 93 09/29/18 07:33 09/29/18 07:33 09/29/18 07:33 09/29/18 07:33 09/29/18 07:33 Laboratory Results 09/27/18 05:37 09/29/18 05:50 0209/29/18 09/30/18 05:59 05:59 05:59 Intake Total 1600 1020 Output Total 400 Balance 1200 1020 PT 13.3 SEC (12.0-15.0) 09/20/18 15:39 INR 0.99 (0.83-1.16) 09/20/18 15:39 - Physical Exam Constitutional: no apparent distress Eyes: PERRL Ears, Nose, Mouth, Throat: moist mucous membranes, other (craniotomy) Cardiovascular: regular rate and rhythym, other (was bradycardic, resolved) Respiratory: no respiratory distress, clear to auscultation Gastrointestinal: normoactive bowel sounds, soft, non-tender abdomen Skin: warm Musculoskeletal: full muscle strength Neurologic: AAOx3 Psychiatric: interacting appropriately ICD10 Worksheet Patient Problems: Problems Problem Status Onset Brain tumor Acute
[2018-09-29] MEDS ORDERED: NS 1,000 ML IV ONE (09:54)
--- NOTE | 2018-09-29 10:08 | NEUSURGPN ---
Assessment/Plan: Assessment/Plan: 68 y/o female with headaches, expressive aphasia, dizziness who was found to have a large left frontal mass resulting in brain compression and cerebral edema with midline shift. POD#6 s/p left frontal craniotomy for tumor resection Plan: -Neuro exam stable and patient is doing well overall -Keep SBP less than 140 -Post op MRI greater than 90% resection -CTA head and neck reviewed, Carotid US did not show any flow limiting stenosis. We appreciate Neurology and Cardiology input on workup for bilateral occipital infarct seen on post op MRI. -Cardiology did EMILY and found left ventricular systolic function, age related valvular changes without hemodynamically significant valvular dysfunction, aneurysmal interatrial septum, and probable patent foramen ovale. No arrhythmias on telemetry.They will follow up with her as outpatient and no further follow up at this time. -Continue Decadron taper as ordered -Continue Keppra 750mg bid -Path=WHO grade 1 Meningioma -OK for ASA 325mg -Ok to transfer to the floor -Discussed patient with Dr Lewis -Dispo planning ok to dc to rehab, looks like likely this will happen on Monday -Please notify NS with any change in neuro/motor exam Subjective: Doing well this morning. Mild headaches but nothing major. Doing well with PT. Objective: Awake. Alert. PERRL. EOMI Facial expression symmetrical- some ecchymoses around left eye, improving no redness Muscle strength full at 5/5 Incision c/d/i- dried blood over incision Sensation intact - Physician Discussed Patient with Dr.: Lewis Neurosurgery Physical Exam - Vitals, I&O, Labs I and O 09/28/18 09/29/18 09/30/18 05:59 05:59 05:59 Intake Total 1600 1020 Output Total 400 Balance 1200 1020 Weight 63.503 kg Intake: Oral (ml) 1600 1020 Output: Urine (ml) 400 Bedside Commode 400 Other: Number of Voids Bedside Commode 1 Diapers/Briefs 4 4 Incontinence 1 1 Toilet 1 4 Vital Signs Temp Pulse Resp BP Pulse Ox 36.5 C 59 L 14 107/56 L 93 09/29/18 07:33 09/29/18 07:33 09/29/18 07:33 09/29/18 07:33 09/29/18 07:33 Laboratory Results 09/27/18 05:37 09/29/18 05:50 ICD10 Worksheet Patient Problems: Problems Problem Status Onset Brain tumor Acute
[2018-09-29 10:11] LABS: PLATELET COUNT 426 10^3/uL (150-400)
[2018-09-29] MEDS: ASPIRIN 325 MG TAB PO SCH ×3 (10:35→15:05)
--- NOTE | 2018-09-29 11:01 | PDINTPN ---
Acting Manager Progress Note Assessment/Plan: Assessment: Meningioma, status post craniotomy/subtotal resection. Doing well. She may be a candidate for postoperative radiation therapy in light of her subtotal resection. Discussed with Oncology: Outpatient referral to radiation therapy likely indicated. Bilateral areas of RENTAL CLERK ischemia consistent with stroke. Subtle motor and cognitive deficits are present. Workup in progress. Appreciate Neurology input. No evidence of cerebrovascular disease. No lower extremity thrombus found. With the aneurysmal atrial septum and the apparent ASD, this may be the source for recurrent embolic stroke? No history of heart disease however, and no significant ectopy or arrhythmias seen on monitor. EMILY without evidence of a PFO. The atrial septum was aneurysmal. Apparently no clot was seen. On aspirin. Syncope: Very likely vasovagal coupled with some vaso dilatation in a warm shower. She responded as soon as she was laid down. She was bradycardic on initial evaluation. She was nauseated afterwards, vomited. Hyponatremia. Sodium 125, has drifted down. Consistent with SIADH. On sodium chloride tablets as well as fluid restriction. Sodium is being followed. DVT prophylaxis: On enoxaparin. GI prophylaxis: Eating, plus famotidine. Hypertension: Blood pressure is fine, under 140, without specific therapy currently. Acute blood-loss anemia: Hematocrit 23.9, stable. No evidence of ongoing bleeding. Disposition: Likely will need inpatient rehab. Consultation has been put in. Plan: Continue present care in the ICU today in light of her syncopal episode. Follow vital signs. Will get postural blood pressures and pulse. Increase sodium chloride to 2 g three times daily with meals. Follow electrolytes, CBC. Await further pending studies. Discussed with Oncology previously: They likely do not need to see her both feel she probably will need to be evaluated as an outpatient by radiation therapy. 40 min of critical care time spent directly with the patient. Discussed issues with hospital, nursing, and the ICU multi disciplinary team. Subjective: Syncopal episode this morning in the shower. Vomiting afterwards, likely vasovagal? Transferred back to ICU status. Awake and alert now. Responsive. Does not recall syncopal event. Objective: Vital Signs Temp Pulse Resp BP Pulse Ox 36.5 C 53 L 10 L 114/48 L 98 09/29/18 07:33 09/29/18 10:38 09/29/18 10:38 09/29/18 10:38 09/29/18 10:38 Laboratory Results 09/29/18 10:04 09/28/18 09/29/18 09/30/18 05:59 05:59 05:59 Intake Total 1600 1020 Output Total 400 Balance 1200 1020 PT 13.3 SEC (12.0-15.0) 09/20/18 15:39 INR 0.99 (0.83-1.16) 09/20/18 15:39 CT head: Expected postop changes. No definite new acute intracranial findings Physical Exam - Physical Exam General Appearance: no apparent distress, other (Mildly somnolent, arouses, responds) EENT: PERRL/EOMI, other (On no O2), No normal ENT inspection (Evolving ecchymosis related to the left orbit. Craniotomy dressing removed) Neck: normal inspection Respiratory: lungs clear, normal breath sounds Cardiac/Chest: regular rate, rhythm Abdomen: normal bowel sounds, non-tender, soft Skin: warm/dry, pallor Extremities: pedal edema (Trace) Neuro/Psych: no motor/sensory deficits (Moves all extremities, weak), cognition abnormalities (Remains somewhat slow, unchanged) ICD10 Worksheet Patient Problems: Problems Problem Status Onset Brain tumor Acute
[2018-09-29] MEDS: FUROSEMIDE 20 MG TAB PO SCH (11:20)
[2018-09-29] MEDS: CITALOPRAM 20 MG TAB PO SCH (21:53)
[2018-09-30] MEDS: DEXAMETHASONE 4 MG TAB PO SCH ×3 (03:28→23:40)
[2018-09-30] MEDS: ACETAMINOPHEN 500 MG TAB PO SCH ×3 (05:23→20:33)
[2018-09-30] MEDS: ENOXAPARIN 40 MG/0.4 ML SYR SC SCH (10:09)
--- NOTE | 2018-09-30 10:10 | HOSPPROG ---
Hospitalist Progress Note Assessment/Plan: #Large left frontal meningioma: with cerebral edema, expressive aphasia. s/p craniotomy, POD #6. 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 Could be cardioembolic. No PFO on EMILY. Could be thrombophilic related to brain mass, though not typical with non-malignant process. 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 Urine Na increased from 14 to 65, c /w SIADH - cont fluid restriction of 1200 mL (not sure she has been completely compliant with this) - increased salt tabs to 2 g TID, Na slowly trending back up - defer lasix with recurrent syncope, presumed hypotensive episodes #Metabolic encephalopathy: due to mass, cerebral edema. #DVT ppx: Lovenox Disp: inpatient, transfer back to ICU status. Subjective: Pt had another syncopal episode in bathroom this am, responded upon return to bed in supine position. Followed commands, normal neuro exam. No hypotension or tachycardia while supine, seems completely recovered. No fevers. No N/V today (vomited yesterda after vagal event in shower) Objective: Vital Signs Temp Pulse Resp BP Pulse Ox 36.6 C 61 20 115/64 95 09/30/18 08:00 09/30/18 08:00 09/30/18 08:00 09/30/18 08:00 09/30/18 08:00 Laboratory Results 09/30/18 05:23 09/30/18 05:23 09/29/18 09/30/18 10/01/18 05:59 05:59 05:59 Intake Total 1020 300 Output Total 50 Balance 1020 250 PT 13.3 SEC (12.0-15.0) 09/20/18 15:39 INR 0.99 (0.83-1.16) 09/20/18 15:39 - Physical Exam Constitutional: no apparent distress Eyes: PERRL Ears, Nose, Mouth, Throat: moist mucous membranes, other (craniotomy) Cardiovascular: regular rate and rhythym Respiratory: no respiratory distress Gastrointestinal: normoactive bowel sounds, soft, non-tender abdomen Skin: warm Musculoskeletal: full muscle strength Neurologic: AAOx3 Psychiatric: interacting appropriately, flat affect ICD10 Worksheet Patient Problems: Problems Problem Status Onset Brain tumor Acute
[2018-09-30] MEDS: SODIUM CHLORIDE 1,000 MG TAB PO SCH ×3 (10:15→18:41)
[2018-09-30] MEDS: levETIRAcetam 500 MG TAB PO SCH ×2 (10:16→20:32)
[2018-09-30] MEDS: ASPIRIN EC 325 MG TAB PO SCH (10:17)
[2018-09-30] MEDS: FAMOTIDINE 20 MG TAB PO SCH ×2 (10:17→20:32)
[2018-09-30] MEDS: CHOLECALCIFEROL VIT D3 1,000 UNITS TAB PO SCH ×2 (10:18→20:33)
[2018-09-30] MEDS: SENNOSIDES/DOCUSATE SODIUM TAB PO SCH ×2 (10:18→20:32)
--- NOTE | 2018-09-30 10:24 | NEUSURGPN ---
Assessment/Plan: Assessment/Plan: 68 y/o female with headaches, expressive aphasia, dizziness who was found to have a large left frontal mass found to be a WHO grade I meningioma resulting in brain compression and cerebral edema with midline shift. POD#7 s/p left frontal craniotomy for tumor resection Plan: -Has had 2 syncopal episodes. Yesterday episode consistent with vasal vagal response. Repeat CT was obtained after this episode yesterday and shows expected postop findings, no reason for syncopal episode. -Hyponatremia- On salt tabs, labs consistent with SIADH -Keep SBP less than 140 -Post op MRI greater than 90% resection - may need referral for radiation at later date -CTA head and neck reviewed, Carotid US did not show any flow limiting stenosis. We appreciate Neurology and Cardiology input on workup for bilateral occipital infarct seen on post op MRI. -Cardiology did EMILY and found left ventricular systolic function, age related valvular changes without hemodynamically significant valvular dysfunction, aneurysmal interatrial septum, and probable patent foramen ovale. No arrhythmias on telemetry.They will follow up with her as outpatient and no further follow up at this time. -Appreciate medicine workup for SIADH, and syncopal episodes -Continue Decadron taper as ordered -Continue Keppra 750mg bid -Discussed patient with Dr Lewis -Dispo planning- pending medical clearance. Could go to rehab as soon as Monday but will depend on Medicine workup on syncopal episodes. -Please notify NS with any change in neuro/motor exam Subjective: Doing well this morning. Denies dizziness, light headedness. Denies headache. Objective: Awake. Alert. PERRL. EOMI Facial expression symmetrical- some ecchymoses around left eye, improving no redness Muscle strength full at 5/5 Incision c/d/i- dried blood over incision Sensation intact - Physician Discussed Patient with Dr.: Lewis Neurosurgery Physical Exam - Vitals, I&O, Labs I and O 09/29/18 09/30/18 10/01/18 05:59 05:59 05:59 Intake Total 1020 300 Output Total 50 Balance 1020 250 Weight 63.503 kg Intake: Oral (ml) 1020 300 Output: Emesis (ml) 50 Other: Number of Voids Bedside Commode 2 Diapers/Briefs 4 Incontinence 1 Toilet 4 Number of Stools Bedside Commode 1 Number of Emesis 2 Occurrences Vital Signs Temp Pulse Resp BP Pulse Ox 36.6 C 61 20 115/64 95 09/30/18 08:00 09/30/18 08:00 09/30/18 08:00 09/30/18 08:00 09/30/18 08:00 Laboratory Results 09/30/18 05:23 09/30/18 05:23 ICD10 Worksheet Patient Problems: Problems Problem Status Onset Brain tumor Acute
--- NOTE | 2018-09-30 12:15 | PDINTPN ---
Almond Blancher Progress Note Assessment/Plan: Assessment: 68-year-old relatively healthy woman prior to the hospitalization. Meningioma, status post craniotomy/subtotal resection. Doing well. She may be a candidate for postoperative radiation therapy in light of her subtotal resection. Discussed with Oncology: Outpatient referral to radiation therapy indicated. Bilateral areas of DISTANCE LEARNING ADMINISTRATOR ischemia consistent with stroke. Subtle motor and cognitive deficits are present. Appreciate Neurology and Cardiology input. No evidence of cerebrovascular disease. Possible PFO felt to be present by original echo. No lower extremity thrombus found. No history of heart disease however, and no significant ectopy or arrhythmias seen on monitor. EMILY without evidence of a PFO. The atrial septum was aneurysmal. Apparently no clot was seen. On aspirin. Syncope: She has had multiple episodes of syncope/presyncope. Some of these likely were vasovagal. However others were not clearly vasovagal and appeared to represent postural syncope. This has been intermittent. At times she is upright, walks in the wren without problems. Episodes generally have been in the morning: ? a postprandial etiol. One was when she was in the shower and was associated with nausea and vomiting. Relative hypovolemia may be an issue. She is on fluid restriction secondary to her hyponatremia... Hyponatremia. Sodium 126 today, stable. Consistent with SIADH. On sodium chloride tablets as well as fluid restriction. Sodium is being followed. DVT prophylaxis: On enoxaparin. GI prophylaxis: Eating, plus famotidine. Hypertension: Blood pressure is fine, under 140, without specific therapy currently. Acute blood-loss anemia: Hematocrit 26.6, higher. No evidence of bleeding. Did have blood loss associated with her craniotomy initially. Disposition: Planning on Inpatient Rehab. . Plan: Continue present care in the ICU today in light of her syncopal episodes Follow vital signs. Will get postural blood pressures and pulse. Continue sodium chloride to 2 g three times daily with meals. Follow electrolytes, CBC. Will give her 500 of 5% albumin x2. Can consider oral Florinef or Midodrine. Discussed with Oncology previously: They likely do not need to see her but feel she probably will need to be evaluated as an outpatient by radiation therapy. 35 min of critical care time spent directly with the patient. Discussed issues with hospitalist, nursing, and the ICU multi disciplinary team. Addendum: I did a postural pulse and blood pressure test with the patient. On lying down her pulse was 70, blood pressure 122/64. I then cetera on the bed for short. At time and then stood her. Within 1 min she stated she was lightheaded. She then became relatively unresponsive. She was put back in bed. Pulse at that point was 90. Blood pressure on lying down was approximately 85/40 with a mean arterial pressure of 50. She regained consciousness as soon as she was put back in bed, horizontal. She is likely intravascularly volume depleted. I will give her fluids and colloid. I would like Cardiology to touch bases again. A tilt test might be interesting but I do not believe they are available here anymore. Subjective: Somnolent, arouses, responds. She did have a now other syncopal/presyncopal episode today when she was up brushing her teeth. Nursing was by her side and placed her on the floor with return of consciousness. She was not on the monitor at that time. When hooked back up heart rate was reportedly in the 60s and blood pressure was normal. No nausea or vomiting today. Objective: Vital Signs Temp Pulse Resp BP Pulse Ox 36.8 C 63 10 L 113/57 L 95 09/30/18 11:37 09/30/18 11:37 09/30/18 11:37 09/30/18 11:37 09/30/18 11:37 Laboratory Results 09/30/18 05:23 09/30/18 05:23 09/29/18 09/30/18 10/01/18 05:59 05:59 05:59 Intake Total 1020 300 Output Total 50 Balance 1020 250 PT 13.3 SEC (12.0-15.0) 09/20/18 15:39 INR 0.99 (0.83-1.16) 09/20/18 15:39 Physical Exam - Physical Exam General Appearance: no apparent distress, thin, other (Somnolent, arouses, responds) EENT: PERRL/EOMI, other (On room air) Neck: normal inspection Respiratory: lungs clear Cardiac/Chest: regular rate, rhythm Abdomen: normal bowel sounds, non-tender, soft Pelvic Exam: other (Using bedside commode) Skin: warm/dry, pallor Extremities: pedal edema (Trace) Neuro/Psych: no motor/sensory deficits (Moves all extremities equally, globally weak. Not ambulated), cognition abnormalities (Persist. Somewhat more somnolent today.) ICD10 Worksheet Patient Problems: Problems Problem Status Onset Brain tumor Acute
[2018-09-30] MEDS ORDERED: ALBUMIN 5% 500 ML IV ONE ×2 (12:25→20:25)
--- NOTE | 2018-09-30 13:47 | SOAPPROG ---
SOAP Progress Note Assessment/Plan: Assessment: 68-year-old female currently in the intensive care unit recovering from extensive neuro surgery to resect a meningioma. Over the last 48 hr she has experienced 2 episodes of syncope clearly associated with postural changes and not associated with arrhythmia. This would imply a problem with vasomotor tone or potentially significant volume depletion. Currently, she is receiving 500 cc of albumin. There are plans for her to get another 500 cc this evening. In reviewing her medications it does not appear that she is on any medications that should be aggravating this condition. She has no primary structural heart disease nor does she have a history of pericardial disease. Plan: At the present time, I agree with plans for hydration. We can reassess her tomorrow morning. If she continues to have difficulties with postural control of blood pressure this would imply more of a primary vasomotor disorder. At that time, we could consider the addition of fludrocortisone or potentially midodrine to help support her blood pressure. We will follow along. 09/30/18 13:48 Subjective: We are asked to see the patient regarding 2 episodes of syncope. Apparently, the patient has experienced 2 episodes of syncope 1 yesterday and another earlier today. Both of these episodes occurred when she was in the upright posture. She was on telemetry during these events without episodes of profound bradycardia. Apparently she did have total loss of consciousness with a rapid resolution once she was placed in a supine position. She had no post ictal state. There were no associated symptoms such as nausea, vomiting or diaphoresis. She had no associated chest discomfort. Prior to this hospitalization she has not had episodes of syncope in the past. She is currently recovering from extensive neuro surgery which was performed to resect a meningioma. As part of her workup it was discovered that she had bilateral strokes noted on MRI. She has had a EMILY and CTA of the carotids without a clear -cut source for embolism. She is currently on dexamethasone to help suppress intracranial edema. TSH was checked which was noted to be slightly low. She is anemic however not profoundly anemic. There is no history of pericardial disease. Objective: Vital Signs Temp Pulse Resp BP Pulse Ox 36.8 C 63 10 L 113/57 L 95 09/30/18 11:37 09/30/18 11:37 09/30/18 11:37 09/30/18 11:37 09/30/18 11:37 Laboratory Results 09/30/18 05:23 09/30/18 05:23 09/29/18 09/30/18 10/01/18 05:59 05:59 05:59 Intake Total 8643 728 5768 Output Total 50 Balance 1878 746 4584 PT 13.3 SEC (12.0-15.0) 09/20/18 15:39 INR 0.99 (0.83-1.16) 09/20/18 15:39 Physical Exam - Physical Exam General Appearance: other (She is in the ICU currently recovering from extensive neuro surgery and appears ill) Neck: non-tender Respiratory: lungs clear Cardiac/Chest: regular rate, rhythm, No edema, No gallop, No JVD Peripheral Pulses: 2+: carotid (R), carotid (L) Abdomen: non-tender, soft Pelvic Exam: deferred Rectal: deferred Neuro/Psych: alert, oriented x 3 ICD10 Worksheet Patient Problems: Problems Problem Status Onset Brain tumor Acute
[2018-09-30] MEDS: NS W/ 20 KCl/L 1,000 ML IV SCH (14:17)
[2018-09-30] MEDS: CITALOPRAM 20 MG TAB PO SCH (20:33)
--- NOTE | 2018-09-30 21:10 | HOSPPROG ---
Hospitalist Progress Note Assessment/Plan: * Meningioma, s/p 90% resection by craniotomy * Expressive Aphasia * CVA's, bilateral * SIADH with hyponatremia * Metabolic Encephalopathy, (mass, edema, stroke, ...) * Syncope x 3 post operative, orthostatic * expected post hemorrhagic anemia after surgery * oral fluid restriction 1200 + salt tabs * albumin * gentle NS? 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
[2018-10-01] MEDS: NS W/ 20 KCl/L 1,000 ML IV SCH ×2 (04:10→22:48)
[2018-10-01] MEDS: ACETAMINOPHEN 500 MG TAB PO SCH ×3 (06:21→22:46)
--- NOTE | 2018-10-01 08:51 | PDINTPN ---
Upholstery Sewer Progress Note Assessment/Plan: Assessment/plan: * Meningioma, status post craniotomy/subtotal resection. Doing well. She may be a candidate for postoperative radiation therapy in light of her subtotal resection. Discussed with Oncology: Outpatient referral to radiation therapy indicated. 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 Subtle motor and cognitive deficits are present. Appreciate Neurology and Cardiology input. No evidence of cerebrovascular disease. Possible PFO felt to be present by original echo. No lower extremity thrombus found. No history of heart disease however, and no significant ectopy or arrhythmias seen on monitor. EMILY without evidence of a PFO. The atrial septum was aneurysmal. Apparently no clot was seen. On aspirin. * Syncope: She has had multiple episodes of syncope/presyncope. Some of these likely were vasovagal. However others were not clearly vasovagal and appeared to represent postural syncope. This has been intermittent. At times she is upright, walks in the wren without problems. Episodes generally have been in the morning: ? a postprandial etiol. One was when she was in the shower and was associated with nausea and vomiting. Relative hypovolemia may be an issue. She is on fluid restriction secondary to her hyponatremia... * Hyponatremia. Improved at 1:29 a.m. Today. Consistent with SIADH. On sodium chloride tablets as well as fluid restriction. Sodium is being followed. * DVT prophylaxis: On enoxaparin. GI prophylaxis: Eating, plus famotidine. * Hypertension: Controlled * Acute blood-loss anemia: Resolved * Disposition: Planning on Inpatient Rehab. . Subjective: Resting comfortably. Complete complains of hunger. Denies any pain. Objective: Vital Signs Temp Pulse Resp BP Pulse Ox 36.9 C 51 L 13 126/64 H 93 09/30/18 20:00 10/01/18 04:00 10/01/18 04:00 10/01/18 04:00 10/01/18 04:00 Laboratory Results 10/01/18 04:50 10/01/18 04:50 09/30/18 10/01/18 10/02/18 05:59 05:59 05:59 Intake Total 300 3416 Output Total 50 Balance 250 3416 PT 13.3 SEC (12.0-15.0) 09/20/18 15:39 INR 0.99 (0.83-1.16) 09/20/18 15:39 - Time Spent With Patient Time Spent With Patient: 35 min of time spent with patient, over 1/2 involved with coordination of care or counseling. Case discussed with nursing Physical Exam - Physical Exam General Appearance: alert, no apparent distress EENT: PERRL/EOMI Neck: non-tender, full range of motion Respiratory: chest non-tender, lungs clear, normal breath sounds Cardiac/Chest: normal peripheral pulses, regular rate, rhythm, systolic murmur Abdomen: normal bowel sounds, non-tender, soft Pelvic Exam: deferred Rectal: deferred Skin: normal color, warm/dry Extremities: non-tender Neuro/Psych: alert, normal mood/affect ICD10 Worksheet Patient Problems: Problems Problem Status Onset Brain tumor Acute
--- NOTE | 2018-10-01 08:52 | NEUSURGPN ---
Assessment/Plan: 68 y/o female with headaches, expressive aphasia, dizziness who was found to have a large left frontal mass found to be a WHO grade I meningioma resulting in brain compression and cerebral edema with midline shift. POD#8 s/p left frontal craniotomy for tumor resection Plan: -Has had 2 syncopal episodes. Yesterday episode consistent with vasal vagal response. Repeat CT was obtained after this episode yesterday and shows expected postop findings, no reason for syncopal episode. Nurse is working with PT and increasing hydration. -Hyponatremia- On salt tabs, labs consistent with SIADH. Also discussed promoting electrolyte richs fluids -Keep SBP less than 140 -Post op MRI greater than 90% resection - may need referral for radiation at later date -CTA head and neck reviewed, Carotid US did not show any flow limiting stenosis. We appreciate Neurology and Cardiology input on workup for bilateral occipital infarct seen on post op MRI. -Cardiology did EMILY and found left ventricular systolic function, age related valvular changes without hemodynamically significant valvular dysfunction, aneurysmal interatrial septum, and probable patent foramen ovale. No arrhythmias on telemetry.They will follow up with her as outpatient and no further follow up at this time. -Continue Decadron taper as ordered -Continue Keppra 750mg bid -Discussed patient with Dr Lewis -Dispo planning- pending medical clearance. Could go to rehab as soon as Monday but will depend on Medicine workup on syncopal episodes. -Please notify NS with any change in neuro/motor exam Subjective: Denies any headache, nausea, dizziness, pain Objective: Awake. Alert. PERRL. EOMI CN II-XII intact. Some ecchymoses around left eye Muscle strength full at 5/5 Incision c/d/i - Physician Discussed Patient with : Debbie Neurosurgery Physical Exam - Vitals, I&O, Labs I and O 09/30/18 10/01/18 10/02/18 05:59 05:59 05:59 Intake Total 300 3416 Output Total 50 Balance 250 3416 Intake: Oral (ml) 300 1250 IV Intake (ml) 888 IV Infused (ml) 1278 Albumin 5% 500 ml @ As 1000 Directed IV ONCE ONE Rx#: [id number] NS W/ 20 KCl/L 1,000 ml @ 278 75 mls/hr IV CONT JULIET Rx #:[id number] Output: Emesis (ml) 50 Other: Number of Voids Bedside Commode 2 Diapers/Briefs 1 Incontinence 4 Toilet 1 Number of Stools Bedside Commode 1 Incontinence 1 Number of Emesis 2 Occurrences Vital Signs Temp Pulse Resp BP Pulse Ox 36.9 C 51 L 13 126/64 H 93 09/30/18 20:00 10/01/18 04:00 10/01/18 04:00 10/01/18 04:00 10/01/18 04:00 Laboratory Results 10/01/18 04:50 10/01/18 04:50 ICD10 Worksheet Patient Problems: Problems Problem Status Onset Brain tumor Acute
--- NOTE | 2018-10-01 09:39 | ASMTCMCOM ---
CM Note CM Note Notes: CM discussed case with MD and inpt rehab. Plan is for pt to start outpatient radiation after pt is in rehab. Inpt rehab is to reapply for insurance auth today. Plan: Inpatient rehab. Date Signed: 10/01/2018 09:39 AM Electronically Signed By:ELIANA Damian
[2018-10-01] MEDS: levETIRAcetam 500 MG TAB PO SCH ×2 (10:10→20:15)
[2018-10-01] MEDS: SODIUM CHLORIDE 1,000 MG TAB PO SCH ×3 (10:10→20:15)
[2018-10-01] MEDS: DEXAMETHASONE 4 MG TAB PO SCH ×2 (10:15→22:47)
[2018-10-01] MEDS: CHOLECALCIFEROL VIT D3 1,000 UNITS TAB PO SCH ×2 (10:16→20:17)
[2018-10-01] MEDS: FAMOTIDINE 20 MG TAB PO SCH ×2 (10:16→20:16)
[2018-10-01] MEDS: ASPIRIN EC 325 MG TAB PO SCH (10:17)
[2018-10-01] MEDS: ENOXAPARIN 40 MG/0.4 ML SYR SC SCH (10:17)
[2018-10-01] MEDS: SENNOSIDES/DOCUSATE SODIUM TAB PO SCH ×2 (10:17→20:17)
--- NOTE | 2018-10-01 10:29 | HOSPPROG ---
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 -Expressive Aphasia has resolved -no signs of AFib so far -no cerebrovascular disease, no intracardiac thrombus or PFO on EMILY, no DVT present * SIADH with hyponatremia -slowly improving with standard conservative measures * Metabolic Encephalopathy, (mass, edema, stroke, ...) -currently with significant memory issues, and slightly slow in processing, unclear to me exactly what her baseline is * Syncope x 3 post operative, orthostatic -anemia may be a contributing factor, no other specific findings to suggest cause -with peripheral neuropathy, question if she might also have some autonomic neuropathy (see below) * expected post hemorrhagic anemia after surgery -a bit worse today, needs following * Recent onset of urge incontinence, uncertain etiology in woman with no prior childbirths or procedures * Peripheral neuropathy in feet, chronic stable, no diagnostic workup so far PLANS: * oral fluid restriction 1200 + salt tabs * albumin * ongoing care mgr for any possible AFib * Will order TSH, B12 to assess neuropathy, may need further assessments * Follow orthostatic symptoms closely, if persist may need other assessment for that * For now ongoing work with physical therapist for her bladder is appropriate, but if she is unable to control that over time may need consultation with a urologist and may need to consider medication or other measures Seen by me today on hospitals rounds as well as multidisciplinary rounds Reviewed in detail with Dr. Gordon Peraza SUBJECTIVE: Feeling a bit better today, no headaches, no fever symptoms, feels better on her feet with no orthostatic symptoms Today she mentions to me that she has had now for 2 months new onset of urinary incontinence described as an urge incontinence No history of urologic or gynecologic procedures or illnesses, and no child history; no definite prior diagnostic assessment but it sounds like she has had 1 visit to a physical therapist for the incontinence, and cannot recall the who referred her to the therapist She also mentions having about 10 years of bilateral numbness without pain in both feet, not progressing to other body areas, no previous assessment OBJECTIVE Vitals reviewed: Pulse regular 50s to 60s, otherwise normal without fever; vital still mildly orthostatic with a significant increase in pulse Engineering Scientist, my review: All sinus Exam: alert oriented talkative, relaxed, memory deficit persists; I did observe her up walking in the hallway with walker and she did fairly well with that today with physical therapist at her side skin warm dry color ok resps not labored lungs clear BSs heart regular abd soft nondistended nontender, bowel sounds present limbs warm, no edema iv site ok Lab data: Hemoglobin decreased to 8 and hematocrit 22.7 today Sodium up to 129, rest of Chem panel stable Objective: Vital Signs Temp Pulse Resp BP Pulse Ox 36.9 C 57 L 16 119/60 96 09/30/18 20:00 10/01/18 08:00 10/01/18 08:00 10/01/18 10:18 10/01/18 08:00 Laboratory Results 10/01/18 04:50 10/01/18 04:50 09/30/18 10/01/18 10/02/18 06:59 06:59 06:59 Intake Total 300 3416 Output Total 50 Balance 250 3416 PT 13.3 SEC (12.0-15.0) 09/20/18 15:39 INR 0.99 (0.83-1.16) 09/20/18 15:39 - Time Spent With Patient Time Spent with Patient: greater than 35 minutes Time Spent with Patient: Greater than 35 minutes spent on this patients care, greater than 50% of time spent counseling, educating, and coordinating care regarding the above mentioned plan. ICD10 Worksheet Patient Problems: Problems Problem Status Onset Brain tumor Acute
[2018-10-01] MEDS: CITALOPRAM 20 MG TAB PO SCH (20:16)
[2018-10-02] MEDS: ACETAMINOPHEN 500 MG TAB PO SCH ×2 (06:16→14:14)
--- NOTE | 2018-10-02 09:26 | HOSPPROG ---
Hospitalist Progress Note Assessment/Plan: * Meningioma, s/p 90% resection by craniotomy * Expressive Aphasia * CVA's, bilateral * SIADH with hyponatremia * Metabolic Encephalopathy, (mass, edema, stroke, ...) * Syncope x 3 post operative, orthostatic * expected post hemorrhagic anemia after surgery * oral fluid restriction 1200 + salt tabs * albumin * gentle NS? * ongoing air sampling and monitoring * Objective: Vital Signs Temp Pulse Resp BP Pulse Ox 36.8 C 61 12 130/61 H 97 10/02/18 08:00 10/02/18 08:00 10/02/18 08:00 10/02/18 08:00 10/02/18 08:00 Laboratory Results 10/01/18 04:50 10/01/18 04:50 10/01/18 10/02/18 10/03/18 06:59 06:59 06:59 Intake Total 3416 2413 Output Total 950 Balance 3416 1463 PT 11.4 sec 09/25/18 15:00 INR 1.0 09/25/18 15:00 ICD10 Worksheet Patient Problems: Problems Problem Status Onset Brain tumor Acute
--- NOTE | 2018-10-02 09:30 | PDINTPN ---
Picker / Packer Progress Note Assessment/Plan: Assessment/plan: * Meningioma, status post craniotomy/subtotal resection. Doing well. -She may be a candidate for postoperative radiation therapy in light of her subtotal resection. Discussed with Oncology: Outpatient referral to radiation therapy indicated. 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 Subtle motor and cognitive deficits are present. Appreciate Neurology and Cardiology input. No evidence of cerebrovascular disease. Possible PFO felt to be present by original echo. No lower extremity thrombus found. No history of heart disease however, and no significant ectopy or arrhythmias seen on monitor. EMILY without evidence of a PFO. The atrial septum was aneurysmal. Apparently no clot was seen. On aspirin. * Syncope: She has had multiple episodes of syncope/presyncope. Some of these likely were vasovagal. However others were not clearly vasovagal and appeared to represent postural syncope. This has been intermittent. At times she is upright, walks in the wren without problems. Episodes generally have been in the morning: Query a postprandial etiology One was when she was in the shower and was associated with nausea and vomiting. Relative hypovolemia may be an issue. She is on fluid restriction secondary to her hyponatremia. * Hyponatremia. Improved at 1:29 a.m. Today. Consistent with SIADH. On sodium chloride tablets as well as fluid restriction. -will check chemistries today * DVT prophylaxis: On enoxaparin. GI prophylaxis: Eating, plus famotidine. * Hypertension: Controlled * Acute blood-loss anemia: Resolved * PT/OT * Out of bed to chair * Disposition: Planning on Inpatient Rehab. Subjective: Awake and alert and oriented x3. Less drowsy and more alert today. Objective: Vital Signs Temp Pulse Resp BP Pulse Ox 36.8 C 61 12 130/61 H 97 10/02/18 08:00 10/02/18 08:00 10/02/18 08:00 10/02/18 08:00 10/02/18 08:00 Laboratory Results 10/01/18 04:50 10/01/18 04:50 10/01/18 10/02/18 10/03/18 05:59 05:59 05:59 Intake Total 3416 2413 Output Total 950 Balance 3416 1463 PT 11.4 sec 09/25/18 15:00 INR 1.0 09/25/18 15:00 - Time Spent With Patient Time Spent With Patient: 35 min of time spent with patient, over 1/2 involved with coordination of care or counseling. Case discussed with nursing Physical Exam - Physical Exam General Appearance: alert, no apparent distress EENT: PERRL/EOMI Neck: non-tender, full range of motion Respiratory: chest non-tender, lungs clear Cardiac/Chest: normal peripheral pulses, regular rate, rhythm Abdomen: normal bowel sounds, non-tender, soft Pelvic Exam: deferred Rectal: deferred Skin: normal color, warm/dry Extremities: normal range of motion, non-tender, normal inspection, normal capillary refill Neuro/Psych: alert, normal mood/affect, oriented x 3 ICD10 Worksheet Patient Problems: Problems Problem Status Onset Brain tumor Acute
--- NOTE | 2018-10-02 09:31 | HOSPPROG ---
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 -Expressive Aphasia has resolved -no signs of AFib so far -no cerebrovascular disease, no intracardiac thrombus or PFO on EMILY, no DVT present * SIADH with hyponatremia -slowly improving with standard conservative measures * Metabolic Encephalopathy, (mass, edema, stroke, ...) -currently with significant memory issues, and slightly slow in processing, unclear to me exactly what her baseline is * Syncope x 3 post operative, orthostatic -anemia may be a contributing factor, no other specific findings to suggest cause -with peripheral neuropathy, question if she might also have some autonomic neuropathy (see below) * expected post hemorrhagic anemia after surgery * Recent onset of urge incontinence, uncertain etiology in woman with no prior childbirths or procedures * Peripheral neuropathy in feet, chronic stable, no diagnostic workup so far PLANS: * Await today's sodium level, continue oral fluid restriction 1200 + salt tabs * ongoing president [place] for any possible AFib * PT OT, continue fall risk precautions * On Lovenox for DVT prophylaxis * Will order B12 to assess neuropathy, may need further assessments * Continue to follow for orthostatic symptoms closely, if persist may need other assessment for that * For now ongoing work with physical therapist for her bladder is appropriate, but if she is unable to control that over time may need consultation with a urologist and may need to consider medication or other measures Seen by me today on hospitals rounds as well as multidisciplinary rounds Reviewed in detail with Dr. Gordon Peraza SUBJECTIVE: Feels "great" No headache or other pain or discomfort, appetite good, slept okay No respiratory symptoms no fever symptoms Has not had any recurrent syncopes for the last 48 hr OBJECTIVE Vitals reviewed: All normal without fever Bed Teacher, my review: All sinus Exam: alert oriented comfortable and relaxed physical therapist at her side skin warm dry color ok resps not labored lungs clear BSs heart regular abd soft nondistended nontender, bowel sounds present limbs warm, no edema iv site ok Objective: Vital Signs Temp Pulse Resp BP Pulse Ox 36.8 C 61 12 130/61 H 97 10/02/18 08:00 10/02/18 08:00 10/02/18 08:00 10/02/18 08:00 10/02/18 08:00 Laboratory Results 10/01/18 04:50 10/01/18 04:50 10/01/18 10/02/18 10/03/18 06:59 06:59 06:59 Intake Total 3416 2413 Output Total 950 Balance 3416 1463 PT 11.4 sec 09/25/18 15:00 INR 1.0 09/25/18 15:00 - Time Spent With Patient Time Spent with Patient: greater than 35 minutes Time Spent with Patient: Greater than 35 minutes spent on this patients care, greater than 50% of time spent counseling, educating, and coordinating care regarding the above mentioned plan. ICD10 Worksheet Patient Problems: Problems Problem Status Onset Brain tumor Acute
[2018-10-02] MEDS: SODIUM CHLORIDE 1,000 MG TAB PO SCH ×2 (09:36→12:55)
[2018-10-02] MEDS: SENNOSIDES/DOCUSATE SODIUM TAB PO SCH ×2 (09:36→09:40)
[2018-10-02] MEDS: ENOXAPARIN 40 MG/0.4 ML SYR SC SCH (09:36)
[2018-10-02] MEDS: FAMOTIDINE 20 MG TAB PO SCH (09:36)
[2018-10-02] MEDS: levETIRAcetam 500 MG TAB PO SCH (09:37)
[2018-10-02] MEDS: ASPIRIN EC 325 MG TAB PO SCH (09:37)
[2018-10-02] MEDS: CHOLECALCIFEROL VIT D3 1,000 UNITS TAB PO SCH (09:37)
--- NOTE | 2018-10-02 09:37 | NEUSURGPN ---
Date of Surgery: 09/23/18 Post Op Day: 9 Assessment/Plan: 68 y/o female with headaches, expressive aphasia, dizziness who was found to have a large left frontal mass found to be a WHO grade I meningioma resulting in brain compression and cerebral edema with midline shift. POD#9 s/p left frontal craniotomy for tumor resection Plan: -Has had 3 syncopal episodes. Last episode consistent with vasal vagal response. Repeat CT was obtained after this episode and shows expected postop findings, no reason for syncopal episode. -Hyponatremia- On salt tabs, labs consistent with SIADH. -Keep SBP less than 140 -Post op MRI greater than 90% resection - may need referral for radiation at later date -CTA head and neck reviewed, Carotid US did not show any flow limiting stenosis. We appreciate Neurology and Cardiology input on workup for bilateral occipital infarct seen on post op MRI. -Cardiology did EMILY and found left ventricular systolic function, age related valvular changes without hemodynamically significant valvular dysfunction, aneurysmal interatrial septum, and probable patent foramen ovale. No arrhythmias on telemetry.They will follow up with her as outpatient and no further follow up at this time. -Continue Decadron taper as ordered -Continue Keppra 750mg bid -Discussed patient with Dr Lewis -Dispo planning- pending medical clearance, stable from neurosurgery standpoint -Please notify NS with any change in neuro/motor exam Subjective: No new overnight issues. Denies headache, nausea, vomiting. Objective: Awake. Alert. PERRL. EOMI Facial expression symmetrical Muscle strength full at 5/5 Incision c/d/i Neurosurgery Physical Exam - Vitals, I&O, Labs I and O 10/01/18 10/02/18 10/03/18 05:59 05:59 05:59 Intake Total 3416 2413 Output Total 950 Balance 3416 1463 Intake: Oral (ml) 1250 1100 IV Intake (ml) 888 IV Infused (ml) 1278 1313 Albumin 5% 500 ml @ As 1000 Directed IV ONCE ONE Rx#: [id number] NS W/ 20 KCl/L 1,000 ml @ 278 1313 75 mls/hr IV CONT JULIET Rx #:[id number] Output: Urine (ml) 950 Catheter 600 Toilet 350 Other: Output Comment Catheter external female cath Number of Voids Diapers/Briefs 1 Incontinence 4 1 Toilet 1 1 Number of Stools Incontinence 1 Toilet 1 Vital Signs Temp Pulse Resp BP Pulse Ox 36.8 C 61 12 130/61 H 97 10/02/18 08:00 10/02/18 08:00 10/02/18 08:00 10/02/18 08:00 10/02/18 08:00 Laboratory Results 10/01/18 04:50 10/01/18 04:50 ICD10 Worksheet Patient Problems: Problems Problem Status Onset Brain tumor Acute
[2018-10-02] MEDS ORDERED: DEXAMETHASONE 2 MG TAB PO SCH (10:45)
[2018-10-02 11:38] VITALS: BP 118/52
[2018-10-02] MEDS: NS W/ 20 KCl/L 1,000 ML IV SCH (12:53)
--- NOTE | 2018-10-02 15:14 | PDIAF ---
- Diagnosis Diagnosis: s/p craniotomy for meningioma Code Status: Full Code - Medication Management Discharge Medications: electronically signed and located in the Home Medication List. - Orders Services needed: Registered Nurse, Certified Manager Recovery, Master Dock Manager , Physical Therapy, Occupational Therapy, Speech Language Pathologist Diet Recommendation: no restrictions on diet Diet Texture: Regular Texture Diet, Thin Liquids Activity/Weight Bearing Restrictions: As tolerated with fall risk precautions Additional Instructions: Contact Neurosurgery service for any questions related to her surgery or wound - Follow Up Care Current Providers and Referrals: Judson Fuentes MD [Medical Doctor] - follow up as scheduled (f/u in 6 weeks post d/c from hospital She can call [phone] for appt) Chucho Garcia MD [Medical Doctor] - (THe office staff at [facility] has been instructed to contact you to arrange a 30 heart rhythm monitor and a followup appointment with Dr. Garcia.)
--- NOTE | 2018-10-02 15:18 | ASDISCHSUM ---
Discharge Information Plan Status:Inpatient Rehab Medically Cleared to Leave: Discharge Date: CM D/C Disposition:[facility] Acute ADT D/C Disposition: Projected Discharge Date: Transportation at D/C:ALS/BLS Discharge Delay Reason: Follow-Up Date: Discharge Slot: Final Diagnosis: Placement Information Patient Contact Information Contact Name:SANDRA Relationship: Address:[address] [place] [address] Work Phone: City:[facility] Phone: State/Zip Code:[place] [address] Email: Financial Information Financial Class:Medicare Primary Plan Desc:MEDICARE OUTPATIENT Primary Plan Number:[id number] Secondary Plan Desc:KENNETH BRONWYN PPO Secondary Plan Number:[id number] Assessment Information LACE LACE Length of stay for Answers: 7-13 days current admission Acuity / Level of Answers: Yes Care: Did the patient have an inpatient admission? Comorbidities - select Answers: Any tumor (including all that apply lymphoma or leukemia) # of Emergency department Answers: 1-2 visits in the last 6 months Score: 11 Date Signed: 10/02/2018 03:17 PM Electronically Signed By:ELIANA Damian [facility] Progress Note CM Note CM Note Notes: Pt admitted after a week of balance issues and a fall, CT scan shows large frontal lobe mass. PT worked with pt and does not think she should go back home before surgery to debulk mass. DC needs uncertain, CM w/f. Pt lives at home with her DC Plan: TBD Date Signed: 09/21/2018 04:03 PM Electronically Signed By:Adilene Pate RN [facility] Progress Note CM Note CM Note Notes: Pt discussed in rounds and with therapy. PT recommending inpatient rehab at this time. Spoke with MD from inpatient rehab and he reports pathology/ oncology recommendations will influence if they are able to take her at inpatient rehab. Pt has [employer] insurance, will need prior auth. CM will continue to collaborate with inpatient rehab. CM to follow. Plan:Inpatient Rehab Date Signed: 09/24/2018 02:47 PM Electronically Signed By:ELIANA Damian [facility] Progress Note CM Note CM Note Notes: Inpt rehab initiating auth today. CM to follow. Plan: inpatient rehab. Date Signed: 09/25/2018 11:09 AM Electronically Signed By:ELIANA Damian [facility] CM Progress Note CM Note CM Note Notes: CM met with pt's yesterday. CM provided support and provided education on plans for inpatient rehab as pt continues to progress. Pt discussed in rounds, inpt rehab still likely plan. Pt continues to progress. Plan: inpatient rehab. Date Signed: 09/26/2018 12:11 PM Electronically Signed By:ELIANA Damian [facility] CM Progress Note CM Note CM Note Notes: Patient has been accepted for [facility] inpatient rehab. She is scheduled for a EMILY today. Inpatient rehab cannot take the patient any later than 4:00 PM today so likely patient will transfer on Monday. She is not yet medically clear to go. CM will follow. Date Signed: 09/28/2018 12:33 PM Electronically Signed By:Mary Cota LCSW [facility] CM Progress Note CM Note CM Note Notes: CM discussed case with MD and inpt rehab. Plan is for pt to start outpatient radiation after pt is in rehab. Inpt rehab is to reapply for insurance auth today. Plan: Inpatient rehab. Date Signed: 10/01/2018 09:39 AM Electronically Signed By:ELIANA Damian Case Management Discharge Plan Note Case Management Discharge Discharge Order Complete? Answers: Yes Patient to Obtain Answers: Other Notes: BLS transport Medications Transportation Arranged Answers: [facility] Complete Answers: Yes Case Management Transport Answers: Yes Form Complete Faxed Final Orders Answers: Yes Agency/Facility Transfer Answers: Yes Report Printed & Faxed to Receiving Agency Family Notified Answers: Yes Discharge Comments Notes: Pt is being discharged by [facility] transportation at 330pm. Pt and are aware. No other D/C concerns at this time. Date Signed: 10/02/2018 03:17 PM Electronically Signed By:ELIANA Damian Intervention Information
[2018-10-04] MEDS ORDERED: DEXAMETHASONE 2 MG TAB PO SCH (10:45)
[2018-10-06] MEDS ORDERED: DEXAMETHASONE 2 MG TAB PO SCH (11:00)
== END 2018-10-02 15:49 | DRG 25 ==
LOC: F3N 18:29 → F2N 09-23 12:14
PROVIDERS: ADMIT Internal Medicine; ATTEND Internal Medicine
PROC: 00B10ZX Excision of Cerebral Meninges, Open Approach, Diagnostic (ICD-10-PCS; principal; 2018-09-23 08:00)
PROC: B244ZZ4 Ultrasonography of Right Heart, Transesophageal (ICD-10-PCS; 2018-09-28)
DX: C70.0 Malignant neoplasm of cerebral meninges (principal); G93.6 Cerebral edema; G93.41 Metabolic encephalopathy; I97.821 Postprocedural cerebrovascular infarction following other surgery; E87.1 Hypo-osmolality and hyponatremia; D62 Acute posthemorrhagic anemia; E87.6 Hypokalemia; R55 Syncope and collapse
CPT/HCPCS: 81479-90; 82435-PO; 82565-PO; 82947-PO; 83891-91; 83896-91; 84132-PO; 84295-PO; 84520-PO; 85014-ER; 85300-90; 85670-90; 92507-GN; 92523-GN; 92610-GN; 96374; 97116-GP; 97162-GP; 97164-GP; 97167-GO; 97168-GO; 97530-GP; 97535-GO; A9585; C1713; G0515-GO; J0171; J0690; J1100; J1580; J1650; J1953; J2001; J2405; J2704; J3010; J3480; P9041; Q9967

== ENCOUNTER → 2018-09-20 | Outpatient (CLI) | payer OTHER | LOC: FIMAGING 12:30 | PROVIDERS: ATTEND Internal Medicine | DX: R22.0 Localized swelling, mass and lump, head (principal); R51 Headache; R11.0 Nausea ==

== ENCOUNTER 2018-10-02 13:29 | Inpatient (IN) | payer OTHER ==
--- NOTE | 2018-10-02 16:40 | SOAPPROG ---
SOAP Progress Note Assessment/Plan: Assessment: Plan: ICD10 Worksheet Patient Problems: Problems Problem Status Onset Brain tumor Acute
[2018-10-02] MEDS ORDERED: MAG HYDROX/AL HYDROX/SIMETH 30 ML UDCUP PO PRN (17:29)
[2018-10-02] MEDS ORDERED: METHOCARBAMOL 750 MG TAB PO PRN (17:34)
[2018-10-02] MEDS ORDERED: ONDANSETRON DISINTEGRATING 4 MG TAB PO PRN (17:34)
[2018-10-02] MEDS ORDERED: LORazepam 0.5 MG TAB PO PRN (17:34)
--- NOTE | 2018-10-02 18:22 | GHP ---
POST ADMISSION PHYSICAL EVALUATION AND REHABILITATION TREATMENT PLAN DATE OF ADMISSION: 10/02/2018 TIME OF EVALUATION: 4 p.m. REFERRING FACILITY: [facility]. REFERRING PHYSICIAN: Dr. Henley IMPAIRMENT GROUP: 2.1, nontraumatic brain dysfunction. DATE OF ONSET: 09/20/2018. REHABILITATION DIAGNOSIS: Gait dysfunction, ataxia, weakness. ETIOLOGIC DIAGNOSIS: Status post excision of cranial meningioma. DATE OF SURGERY: 09/23/2018. HISTORY OF PRESENT ILLNESS: Patient is a 68-year-old female who was initially admitted to [facility] on 09/20/2018, presenting with a 1-week history of dizziness, headache, nausea, vomiting, and at least [address] prior to admission showed a large left frontal brain mass with mass effect and edema. Patient was admitted through the emergency department where further workup including brain MRI confirmed a large frontal mass with a left to right shift and additional small lesions consistent with meningioma with possible embolic infarcts in the parietal and cerebellar lobes. There was some encroachment of the corpus callosum. She was started on Decadron and Keppra for seizure prophylaxis. Patient also noted to be hypokalemic, hyponatremic, and hyperglycemic and was managed medically for this. On 09/23/2018, patient underwent left frontal craniotomy for tumor resection. By review of the medical records, this appears to have been an incomplete resection. Neurology consult was obtained and a workup ensued. This included an echocardiogram which was positive for small jpjnq-qa-vopm intracardiac shunting with bubble study, aneurysmal interatrial septum with probable patent foramen ovale and ejection fraction of 66%. CTA of the head and neck, along with carotid dopplers, were obtained and were negative. Transesophageal echocardiogram showed no intracardiac thrombus or PFO. 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 Postoperative course was complicated by syncope x3. She was seen by both Physical and Occupational Therapy. Review of the notes indicates that she was having some ataxia with falling to the right and some left upper extremity neglect. She also showed poor insight into her condition. She was stabilized and was doing well and, therefore, transferred to the rehab unit in stable condition. STUDIES AND LABS DURING PREVIOUS HOSPITALIZATION: As above. Serum sodium on , 126. Potassium on 10/02/2018, 3.7. BUN 11/creatinine 0.5 on 10/02. On 09/30, white count was noted to be 8.9, hemoglobin 8.0, hematocrit 22.7. PRECAUTIONS: Seizure risk. Fall risk. Active comorbidities. Anxiety and depression. Prediabetes. PAST MEDICAL HISTORY: Hypertension. Anxiety. Depression. Hypertension. Osteopenia. Prediabetes. Peptic ulcer. Thyroid nodule. Pheochromocytoma. Skin cancer. Hyperlipidemia. Peripheral neuropathy in feet. PAST SURGICAL HISTORY: Noncontributory. PREHOSPITAL MEDICATIONS: Amiloride. Herbal supplements. ASA. ADMISSION MEDICATIONS: Acetaminophen 1000 mg q.8 hours. ASA enteric-coated 325. Dexamethasone taper. Enoxaparin 40 mg subcutaneous daily. Famotidine 20 mg b.i.d. Keppra 750 mg twice daily. Methocarbamol 750 mg q.i.d. p.r.n. muscle spasms. Zofran 4 mg q.4 hours p.r.n. nausea. Polyethylene glycol 17 g oral daily as needed. Sennoside/docusate sodium 1-2 tablets oral twice daily. Sodium chloride 2000 mg t.i.d. with meals. Citalopram 10 mg at bedtime. Cholecalciferol (vitamin D3) 1000 units twice daily. Lorazepam 0.5 mg twice daily as needed. ALLERGIES: Ibuprofen and Septra. PSYCHOSOCIAL HISTORY: She is . Lives with who is in good health. They live in their own home. There are steps to the entrance and steps up to the bedroom. 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 She denies tobacco use. Occasional ETOH use, 1-2 times per month. FAMILY HISTORY: Noncontributory. REVIEW OF SYSTEMS: HEENT: Denies visual disturbance. Denies dysphagia. Denies tinnitus. GI: Denies nausea or vomiting. PULMONARY: Denies shortness of breath. CARDIAC: Denies chest pain or angina-like symptoms. Denies swelling in legs. ALLERGIES: Ibuprofen and Septra. GI: Reports continent of bowel. Denies abdominal pain. : Reports urinary incontinence which predated recent hospitalization and started in June. Denies dysuria. Denies suprapubic pain. NEUROLOGICAL: Denies headache or visual field deficits. Denies upper or lower extremity sensory disturbance or progressive weakness. She does report that while walking with Physical Therapy at [facility], she had tended to lean to the right. She does report a little bit of dizziness. She reports some numbness in her feet due to previous diagnosis of peripheral neuropathy of undetermined etiology, which she states has been a little bit more pronounced since recent hospitalization. MUSCULOSKELETAL: Denies arthralgias. The remainder of the 10-system review was negative. PHYSICAL EXAM: VITAL SIGNS: Pending at this time. CONSTITUTIONAL: WD, WN pleasant female, NAD. Appropriate. Well groomed. HEENT: Good dentition. Sclerae nonicteric. Pupils equal, round, reactive to light and accommodation. NECK: Supple. No JVD. No lymphadenopathy. CARDIOVASCULAR: Regular rate and rhythm. No murmurs, rubs, or gallops. No lower extremity edema. Radial, dorsalis pedis, and posterior tibial pulses easily palpated and symmetric. No pretibial edema. Negative Homans test bilaterally. PULMONARY: Lungs clear to auscultation. ABDOMEN: Normal active bowel sounds all 4 quadrants. No hepatosplenomegaly. No rebound tenderness or guarding. No suprapubic tenderness. : No CVA tenderness. No urinary catheter present. LYMPH: No lower extremity edema. NEUROLOGICAL: Cranial nerves 2-12 grossly intact. Negative Ventura's test. No ankle clonus. 4/5 strength proximal and distal muscle groups of both upper and lower extremities. Skin: Anterior scalp incision with luiz in place and healing well. CURRENT LEVEL OF FUNCTION: Per the pre-admission screen. Diet: Regular. Grooming: Contact guard assist/minimal assist for standing at sink for oral care, washing hands and face, verbal cuing to stay on task. Bathing: TBA. Dressing: Lower body dressing setup/SBA/cues for safety and stay on task. Toileting: Min assist/cues for sequencing and follow-through for clothing management, CGA for hans-hygiene for weight shifting. Bladder: Incontinent. Bowel: To be assessed. Bed mobility: SBA. Transfers: Min to mod assist. Toilet treatment: Contact guard assist. Bed to chair, chair to bed with FWW cues to initiate and sequence. Equipment: Four-wheel walker, bath/shower seat raised toilet seat. Balance: Contact guard assist/min assist. Standing balance: Narrow HARSH. Endurance: Stands for 5 minutes with ADLs. Gait: Contact guard assist/min assist with four-wheel walker, scissors feet, bumps into items on left side. Ambulates FWW and four-wheel walker, 100-150 feet with contact guard assist/cues. Wheelchair: To be assessed. Stairs: To be assessed. Cognition: Distractible, impulsive, decreased sequencing, decreased memory, decreased safety awareness. Safety precautions: Falls, seizures, syncope. IMPRESSION/PLAN: 1. Status post cranial meningioma excision. Dexamethasone taper with Decadron 2 mg, reviewed and discussed with pharmacist. Continue keppra for seizure prophalaxis. Fluid restriction and supplemental NaCl tablets to correct hyponatremia. Patient presents with a gait dysfunction, particularly tendency to lean to right, which also affects her ability to perform ADLs. Patient will have comprehensive rehabilitation including occupational therapy, physical therapy, and speech-language pathology. Anticipate patient will advance to supervision/moderate independent level for ADLs and mobility using least restrictive device and be able to demonstrate safety and compensatory strategies to carry out everyday activities at home. 2. Pain management. Acetaminophen 1000 mg q.8 hours. ASA enteric-coated 325 mg daily. 3. SIADH- 1200 cc fluid restriction and NaCl tablets daily. Check BMP /6. Dr. Guerrero will check labs to confirm dx of SIADH. 4. Seizure prophylaxis. Keppra 750 mg twice daily. 5. Prophylaxis. Enoxaparin 40 mg subcutaneous daily. Famotidine 20 mg twice daily. 6. Muscle spasms- Methocarbamol 750 mg q.i.d. p.r.n. muscle spasms. 7. Bowel/bladder. Nursing to initiate bowel/bladder program. Bowels meds ordered 8. Anxiety/Depression. Citalopram 10 mg at bedtime. Abhishek Conner M.D. [facility]
[2018-10-02] MEDS: SODIUM CHLORIDE 1,000 MG TAB PO SCH (18:23)
[2018-10-02] MEDS: SENNOSIDES/DOCUSATE SODIUM TAB PO SCH (20:35)
[2018-10-02] MEDS: CITALOPRAM 20 MG TAB PO SCH (20:37)
[2018-10-02] MEDS: levETIRAcetam 250 MG TAB PO SCH (20:37)
[2018-10-02] MEDS: DEXAMETHASONE 2 MG TAB PO SCH (20:37)
[2018-10-02] MEDS: FAMOTIDINE 20 MG TAB PO SCH (20:38)
[2018-10-02] MEDS: CHOLECALCIFEROL VIT D3 1,000 UNITS TAB PO SCH (20:38)
[2018-10-02] MEDS: ACETAMINOPHEN 500 MG TAB PO SCH (20:39)
[2018-10-03] MEDS: ACETAMINOPHEN 500 MG TAB PO SCH ×3 (05:54→21:26)
[2018-10-03 08:05] LABS: PLATELET COUNT 280 10^3/uL (150-400)
[2018-10-03] MEDS ORDERED: ENOXAPARIN 40 MG/0.4 ML SYR SC SCH (09:00)
[2018-10-03] MEDS: SODIUM CHLORIDE 1,000 MG TAB PO SCH ×3 (09:04→17:34)
[2018-10-03] MEDS: ENOXAPARIN 40 MG/0.4 ML SYR SC SCH (09:05)
[2018-10-03] MEDS: levETIRAcetam 250 MG TAB PO SCH ×2 (09:05→21:25)
[2018-10-03] MEDS: DEXAMETHASONE 2 MG TAB PO SCH (09:05)
[2018-10-03] MEDS: ASPIRIN EC 325 MG TAB PO SCH (09:05)
[2018-10-03] MEDS: CHOLECALCIFEROL VIT D3 1,000 UNITS TAB PO SCH ×2 (09:05→21:25)
[2018-10-03] MEDS: FAMOTIDINE 20 MG TAB PO SCH ×2 (09:05→21:26)
[2018-10-03] MEDS: SENNOSIDES/DOCUSATE SODIUM TAB PO SCH ×2 (09:06→21:32)
[2018-10-03] MEDS: POTASSIUM CL 20 MEQ TAB PO SCH (12:48)
--- NOTE | 2018-10-03 15:24 | SOAPPROG ---
SOAP Progress Note Assessment/Plan: Assessment: Debility status post excision of frontal meningioma. * PT and OT to optimize mobility and activities of daily living. Seizure risk and brain edema. Continue dexamethasone taper. Continue levetiracetam. 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 * Sodium 128 this morning, 10/03/2018, trending up from 126 in the hospital. * Continue sodium chloride tablets and fluid restriction. Anemia, improving on labs 10/03/2018. Urinary incontinence may be due to mass effect of meningioma on frontal lobes. Expect gradual resolution. Insomnia. Complains of just 1 night of insomnia on the night of admission to inpatient rehabilitation. Continue to monitor. Anxiety versus depression. Continue citalopram. Consider changing to non-SSRI if hyponatremia proves refractory. 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 * Had suspicion of [id number]-gjmc shunt on transthoracic echocardiogram, not confirmed on transesophageal echocardiogram. * Continue aspirin. * Unclear whether there are functional deficits associated. * Hypercoagulable workup with some results still pending as of 10/03/2018.. Prophylaxis. With solid tumor and relative immobility, she is at elevated risk for DVT. Continue enoxaparin until mobility improves. Continue famotidine as she is at elevated risk of GI bleed with concurrent enoxaparin, aspirin and dexamethasone. FOLLOW-UP: Neurologist Dr. Fuentes within 6 weeks of discharge. Tool And Die Maker Apprentice Dr. Garcia after discharge for 30 day heart monitor to rule out occult atrial fibrillation. Had incomplete resection of left frontal meningioma and had 2 other possible small meningiomas. May have need for radiation therapy, to be determined in follow-up with Neurosurgery after discharge. Primary care provider is Dr. Patricio. 10/03/18 14:59 Subjective: Reports poor sleep last night. She says she slept well while in the hospital. Has urinary incontinence. She says it began in May of last year. Otherwise without complaints. Objective: Vital Signs Temp Pulse Resp BP Pulse Ox 36.7 C 60 16 141/79 H 96 10/03/18 05:16 10/03/18 05:16 10/03/18 05:16 10/03/18 05:16 10/03/18 05:16 Laboratory Results 10/03/18 05:30 10/03/18 05:30 10/02/18 10/03/18 10/04/18 05:59 05:59 05:59 Intake Total 400 120 Output Total 150 150 Balance 250 -30 Physical Exam - Physical Exam General Appearance: WD/WN, alert, no apparent distress Respiratory: normal breath sounds, No crackles, No rhonchi, No wheezing Cardiac/Chest: regular rate, rhythm, No diastolic murmur, No systolic murmur Skin: normal color, warm/dry, other (Scalp incision with luiz. No erythema swelling or drainage.) Neuro/Psych: alert, normal mood/affect, oriented x 3 ICD10 Worksheet Patient Problems: Problems Problem Status Onset Brain tumor Acute
[2018-10-03] MEDS: CITALOPRAM 20 MG TAB PO SCH (21:26)
[2018-10-04] MEDS: ACETAMINOPHEN 500 MG TAB PO SCH ×3 (05:55→20:10)
[2018-10-04] MEDS: ASPIRIN EC 325 MG TAB PO SCH (08:43)
[2018-10-04] MEDS: CHOLECALCIFEROL VIT D3 1,000 UNITS TAB PO SCH ×2 (08:44→20:11)
[2018-10-04] MEDS: levETIRAcetam 250 MG TAB PO SCH ×2 (08:44→20:10)
[2018-10-04] MEDS: POTASSIUM CL 20 MEQ TAB PO SCH (08:44)
[2018-10-04] MEDS: DEXAMETHASONE 2 MG TAB PO SCH (08:44)
[2018-10-04] MEDS: FAMOTIDINE 20 MG TAB PO SCH ×2 (08:45→20:09)
[2018-10-04] MEDS: SODIUM CHLORIDE 1,000 MG TAB PO SCH ×3 (08:45→17:17)
[2018-10-04] MEDS: SENNOSIDES/DOCUSATE SODIUM TAB PO SCH ×2 (08:46→20:12)
[2018-10-04] MEDS: ENOXAPARIN 40 MG/0.4 ML SYR SC SCH (08:46)
--- NOTE | 2018-10-04 11:53 | SOAPPROG ---
SOAP Progress Note Assessment/Plan: Assessment: Debility status post excision of frontal meningioma. * Has uneven gait and is a fall risk. * PT and OT to optimize mobility and activities of daily living. Cognitive impairment. Mild issues with attention memory and judgment. Appears to have slow processing. * Continue MEDICAL BILLING AND CODING SPECIALIST. Seizure risk and brain edema. Continue dexamethasone taper. Continue levetiracetam. 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 * Sodium 128 this morning, 10/03/2018, trending up from 126 in the hospital. * Continue sodium chloride tablets and fluid restriction. Recheck BMP 10/05/2018. Anemia, improving on labs 10/03/2018. Urinary incontinence may be due to mass effect of meningioma on frontal lobes. Expect gradual resolution. * She thinks her control is improving but nursing reports incontinent x3 overnight. She seems to be continent during the day. * Negligible postvoid residuals on bladder scan. Insomnia. Complains of just 1 night of insomnia on the night of admission to inpatient rehabilitation. Subsequently sleeping well. Continue to monitor. Anxiety versus depression. Continue citalopram. Consider changing to non-SSRI if hyponatremia proves refractory. 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 * Had suspicion of bdqgz-[id number]-kpqo shunt on transthoracic echocardiogram, not confirmed on transesophageal echocardiogram. * Continue aspirin. * Unclear whether there are functional deficits associated. * Hypercoagulable workup with some results still pending as of 10/03/2018.. Prophylaxis. With solid tumor and relative immobility, she is at elevated risk for DVT. Continue enoxaparin until mobility improves. Continue famotidine as she is at elevated risk of GI bleed with concurrent enoxaparin, aspirin and dexamethasone. DISPOSITION: Currently approved by insurance through 10/08/2018. Reassess pending and progress. Expect outpatient OT, PT and MEDICAL BILLING AND CODING SPECIALIST. FOLLOW-UP: Neurologist Dr. Fuentes within 6 weeks of discharge. Insulation Inspector Dr. Garcia after discharge for 30 day heart monitor to rule out occult atrial fibrillation. Had incomplete resection of left frontal meningioma and had 2 other possible small meningiomas. May have need for radiation therapy, to be determined in follow-up with Neurosurgery after discharge. Primary care provider is Dr. Patricio. 10/04/18 11:47 Subjective: No complaints. Slept well. Not in pain. No fevers/chills, cough/dyspnea. Objective: Vital Signs Temp Pulse Resp BP Pulse Ox 36.8 C 67 16 136/76 H 95 10/04/18 05:55 10/04/18 05:55 10/04/18 05:55 10/04/18 05:55 10/04/18 05:55 Laboratory Results 10/03/18 05:30 10/03/18 05:30 10/03/18 10/04/18 10/05/18 05:59 05:59 05:59 Intake Total 400 220 236 Output Total 150 350 250 Balance 250 -130 -14 Physical Exam - Physical Exam General Appearance: WD/WN, alert, no apparent distress Respiratory: No respiratory distress, No accessory muscle use Skin: normal color, warm/dry Neuro/Psych: alert, normal mood/affect, oriented x 3 ICD10 Worksheet Patient Problems: Problems Problem Status Onset Brain tumor Acute
[2018-10-04] MEDS: CITALOPRAM 20 MG TAB PO SCH (20:10)
[2018-10-05] MEDS: ACETAMINOPHEN 500 MG TAB PO SCH ×3 (06:00→21:46)
[2018-10-05] MEDS: levETIRAcetam 250 MG TAB PO SCH ×2 (08:53→21:46)
[2018-10-05] MEDS: CHOLECALCIFEROL VIT D3 1,000 UNITS TAB PO SCH ×2 (08:53→21:46)
[2018-10-05] MEDS: SENNOSIDES/DOCUSATE SODIUM TAB PO SCH ×2 (08:53→21:47)
[2018-10-05] MEDS: SODIUM CHLORIDE 1,000 MG TAB PO SCH ×3 (08:53→18:09)
[2018-10-05] MEDS: POTASSIUM CL 20 MEQ TAB PO SCH (08:54)
[2018-10-05] MEDS: ENOXAPARIN 40 MG/0.4 ML SYR SC SCH (08:54)
[2018-10-05] MEDS: DEXAMETHASONE 2 MG TAB PO SCH (08:54)
[2018-10-05] MEDS: FAMOTIDINE 20 MG TAB PO SCH ×2 (08:54→21:46)
[2018-10-05] MEDS: ASPIRIN EC 325 MG TAB PO SCH (08:54)
--- NOTE | 2018-10-05 10:39 | SOAPPROG ---
SOAP Progress Note Assessment/Plan: Assessment: Debility status post excision of frontal meningioma. * Initial functional independence measure is 93. She is at supervision level for bed mobility. She needs cues to initiate. She transfers with standby assist to contact guard assist using a tracking pole. She ambulated 350 ft with a tracking pole with standby assist to contact guard assist. She climbed and descended 9 stairs with 1 rail. She is at supervision or standby assist level for activities of daily living. * Continue PT and OT to optimize mobility and activities of daily living. Cognitive impairment. * Mild issues with attention, memory and judgment. Appears to have slow processing. * Does well with structured activity. * Continue ASSET PROTECTION MANAGER. Seizure risk and brain edema. Continue dexamethasone taper. Continue levetiracetam. 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 * Sodium 128 this morning, 10/03/2018, trending up from 126 in the hospital. * Continue sodium chloride tablets and fluid restriction. Continues to improve with sodium of 130 on BMP 10/05/2018. Anemia, improving on labs 10/03/2018. Urinary incontinence may be due to mass effect of meningioma on frontal lobes. Expect gradual resolution. * She thinks her control is improving but nursing reports incontinent x3 overnight. She seems to be continent during the day. * Negligible postvoid residuals on bladder scan. Insomnia. Complainsed of just 1 night of insomnia on the night of admission to inpatient rehabilitation. Subsequently sleeping well. Continue to monitor. Anxiety versus depression. Continue citalopram. Consider changing to non-SSRI if hyponatremia proves refractory. 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 * Had suspicion of owbus-fm-vcsi shunt on transthoracic echocardiogram, not confirmed on transesophageal echocardiogram. * Continue aspirin. * Unclear whether there are functional deficits associated. * Hypercoagulable workup without abnormality. Prophylaxis. Mobility is much improved. Discontinue enoxaparin starting 2018. Discontinue famotidine. DISPOSITION: Attended staffing, 15 min. Discussed with case management, nursing, dietitian, PT, OT, ASSET PROTECTION MANAGER. Lives with who will be available to assist 24 hr a day. There are 3 steps to enter and 15 steps to the main floor. Plan to discharge home on 10/09/2018 with supervision from . Outpatient PT OT and ASSET PROTECTION MANAGER. FOLLOW-UP: Neurosurgeon Dr. Esposito on 10/10/2017. Neurologist Dr. Fuentes within 6 weeks of discharge. Fabrication Mig Welder Dr. Garcia after discharge for 30 day heart monitor to rule out occult atrial fibrillation. Had incomplete resection of left frontal meningioma and had 2 other possible small meningiomas. May have need for radiation therapy, to be determined in follow-up with Neurosurgery after discharge. Primary care provider is Dr. Patricio. 10/05/18 10:49 Subjective: No complaints. Slept well. Not in pain. No cough or dyspnea. Objective: Vital Signs Temp Pulse Resp BP Pulse Ox 36.9 C 73 15 134/74 H 93 10/05/18 06:45 10/05/18 06:45 10/05/18 06:45 10/05/18 06:45 10/05/18 06:45 Laboratory Results 10/03/18 05:30 10/05/18 06:05 10/04/18 10/05/18 10/06/18 05:59 05:59 05:59 Intake Total 220 472 300 Output Total 350 450 100 Balance -130 22 200 - Time Spent With Patient Time Spent With Patient: Greater than 35 min floor time today, including more than 50% of time in coordination of care during staffing meeting, and counseling patient. Physical Exam - Physical Exam General Appearance: WD/WN, alert, no apparent distress Respiratory: normal breath sounds, No crackles, No rhonchi, No wheezing Cardiac/Chest: regular rate, rhythm, No edema, No diastolic murmur, No systolic murmur Skin: normal color, warm/dry Neuro/Psych: alert, normal mood/affect, oriented x 3 ICD10 Worksheet Patient Problems: Problems Problem Status Onset Brain tumor Acute
[2018-10-05] MEDS: CITALOPRAM 20 MG TAB PO SCH (21:46)
[2018-10-06] MEDS: ACETAMINOPHEN 500 MG TAB PO SCH ×3 (06:31→21:44)
[2018-10-06] MEDS: SODIUM CHLORIDE 1,000 MG TAB PO SCH ×3 (08:36→17:53)
[2018-10-06] MEDS: CHOLECALCIFEROL VIT D3 1,000 UNITS TAB PO SCH ×2 (08:37→21:42)
[2018-10-06] MEDS: DEXAMETHASONE 2 MG TAB PO SCH (08:38)
[2018-10-06] MEDS: FAMOTIDINE 20 MG TAB PO SCH ×2 (08:39→21:42)
[2018-10-06] MEDS: POTASSIUM CL 20 MEQ TAB PO SCH (08:39)
[2018-10-06] MEDS: levETIRAcetam 250 MG TAB PO SCH ×2 (08:39→21:43)
[2018-10-06] MEDS: ASPIRIN EC 325 MG TAB PO SCH (08:39)
[2018-10-06] MEDS: SENNOSIDES/DOCUSATE SODIUM TAB PO SCH ×2 (08:40→21:43)
--- NOTE | 2018-10-06 13:51 | SOAPPROG ---
SOAP Progress Note Assessment/Plan: Assessment: 68 YO Woman recent craniotomy for meningioma resection Debility status post excision of frontal meningioma. * Initial functional independence measure is 93. She is at supervision level for bed mobility. She needs cues to initiate. She transfers with standby assist to contact guard assist using a tracking pole. She ambulated 350 ft with a tracking pole with standby assist to contact guard assist. She climbed and descended 9 stairs with 1 rail. She is at supervision or standby assist level for activities of daily living. * Continue PT and OT to optimize mobility and activities of daily living. Cognitive impairment. * Mild issues with attention, memory and judgment. Appears to have slow processing. * Does well with structured activity. * Continue INTERPRETER. Seizure risk and brain edema. Continue dexamethasone taper. Continue levetiracetam. 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 * Na 130 on 10/05 * Continue sodium chloride tablets and fluid restriction. Anemia, improving on labs 10/03/2018. Urinary incontinence may be due to mass effect of meningioma on frontal lobes. Expect gradual resolution. * She thinks her control is improving but nursing reports incontinent x3 overnight. She seems to be continent during the day. * Negligible postvoid residuals on bladder scan. Insomnia. Improved, Continue to monitor. Anxiety versus depression. Continue citalopram. Consider changing to non-SSRI if hyponatremia proves refractory. 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 * Had suspicion of wdjfw-fr-hegg shunt on transthoracic echocardiogram, not confirmed on transesophageal echocardiogram. * Continue aspirin. * Unclear whether there are functional deficits associated. * Hypercoagulable workup without abnormality. Prophylaxis. Mobility is much improved. Discontinued enoxaparin 10/06/2018. Discontinue famotidine. FOLLOW-UP: Neurosurgeon Dr. Esposito on 10/10/2017. Neurologist Dr. Fuentes within 6 weeks of discharge. Data Entry Machine Operator Dr. Garcia after discharge for 30 day heart monitor to rule out occult atrial fibrillation. Had incomplete resection of left frontal meningioma and had 2 other possible small meningiomas. May have need for radiation therapy, to be determined in follow-up with Neurosurgery after discharge. Primary care provider is Dr. Patricio. Plan: Cont Dr [facility] treatment plan 10/06/18 13:49 Subjective: Flat affect No LOPEZ/F/C/CP/SOB/N/V Minimal BM x 4 days, resisting meds, yet agreed to Senokot this am. No C/O abdominal discomfort, bloating etc. May need more aggressive approach if no BM today. Objective: Vital Signs Temp Pulse Resp BP Pulse Ox 36.9 C 73 18 128/79 H 95 10/06/18 08:00 10/06/18 08:00 10/06/18 08:00 10/06/18 08:00 10/06/18 08:00 Laboratory Results 10/03/18 05:30 10/05/18 06:05 10/05/18 10/06/18 10/07/18 05:59 05:59 05:59 Intake Total 472 1150 420 Output Total 450 250 200 Balance 22 900 220 Physical Exam - Physical Exam General Appearance: alert, no apparent distress Neck: supple Respiratory: lungs clear Cardiac/Chest: regular rate, rhythm Abdomen: normal bowel sounds, soft Skin: normal color, warm/dry Neuro/Psych: alert, oriented x 3, cognition abnormalities, other (no acute changes), No normal mood/affect (flat affect) ICD10 Worksheet Patient Problems: Problems Problem Status Onset Brain tumor Acute
[2018-10-06] MEDS ORDERED: BISACODYL 10 MG SUPP PR PRN (14:30)
[2018-10-06] MEDS: CITALOPRAM 20 MG TAB PO SCH (21:43)
[2018-10-07] MEDS: ACETAMINOPHEN 500 MG TAB PO SCH ×3 (05:47→21:05)
[2018-10-07] MEDS: POLYETHYLENE GLYCOL 3350 17 GM PKT PO PRN (08:11)
[2018-10-07] MEDS: levETIRAcetam 250 MG TAB PO SCH ×2 (08:12→20:23)
[2018-10-07] MEDS: SODIUM CHLORIDE 1,000 MG TAB PO SCH ×3 (08:12→17:26)
[2018-10-07] MEDS: POTASSIUM CL 20 MEQ TAB PO SCH (08:12)
[2018-10-07] MEDS: ASPIRIN EC 325 MG TAB PO SCH (08:12)
[2018-10-07] MEDS: DEXAMETHASONE 2 MG TAB PO SCH (08:13)
[2018-10-07] MEDS: CHOLECALCIFEROL VIT D3 1,000 UNITS TAB PO SCH ×2 (08:13→20:22)
[2018-10-07] MEDS: FAMOTIDINE 20 MG TAB PO SCH ×2 (08:13→20:23)
[2018-10-07] MEDS: SENNOSIDES/DOCUSATE SODIUM TAB PO SCH ×2 (08:13→20:23)
--- NOTE | 2018-10-07 14:07 | SOAPPROG ---
SOAP Progress Note Assessment/Plan: Assessment: 68 YO Woman recent craniotomy for meningioma resection Update : patient with new onset erythema on palms and soles, pruritic. Query topical reaction vs drug reaction. most PRN meds have not been needed/requested/ given. Likely culprit is either Decadron (taper complete as of 10/06) or Keppra ( which she is on for Seizure ppx, and has no history of seizure). Monitor and Consider weaning Keppra if no improvement in next day. Debility status post excision of frontal meningioma. * Initial functional independence measure is 93. She is at supervision level for bed mobility. She needs cues to initiate. She transfers with standby assist to contact guard assist using a tracking pole. She ambulated 350 ft with a tracking pole with standby assist to contact guard assist. She climbed and descended 9 stairs with 1 rail. She is at supervision or standby assist level for activities of daily living. * Continue PT and OT to optimize mobility and activities of daily living. Cognitive impairment. * Mild issues with attention, memory and judgment. Appears to have slow processing. * Does well with structured activity. 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 Seizure risk and brain edema. Continue dexamethasone taper. Continue levetiracetam. 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 * Na 130 on 10/05 * Continue sodium chloride tablets and fluid restriction. Anemia, improving on labs 10/03/2018. Urinary incontinence may be due to mass effect of meningioma on frontal lobes. Expect gradual resolution. * She thinks her control is improving but nursing reports incontinent x3 overnight. She seems to be continent during the day. * Negligible postvoid residuals on bladder scan. Insomnia. Improved, Continue to monitor. Anxiety versus depression. Continue citalopram. Consider changing to non-SSRI if hyponatremia proves refractory. 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 * Had suspicion of gifnv-de-bdow shunt on transthoracic echocardiogram, not confirmed on transesophageal echocardiogram. * Continue aspirin. * Unclear whether there are functional deficits associated. * Hypercoagulable workup without abnormality. Prophylaxis. Mobility is much improved. Discontinued enoxaparin 10/06/2018. Discontinue famotidine. FOLLOW-UP: Neurosurgeon Dr. Esposito on 10/10/2017. Neurologist Dr. Fuentes within 6 weeks of discharge. Abattoir Supervisor Dr. Garcia after discharge for 30 day heart monitor to rule out occult atrial fibrillation. Had incomplete resection of left frontal meningioma and had 2 other possible small meningiomas. May have need for radiation therapy, to be determined in follow-up with Neurosurgery after discharge. Primary care provider is Dr. Patricio. Plan: Cont Dr [facility] treatment plan 10/07/18 14:15 Subjective: Quietly resting C/O B hand and foot redness and itching, exam c/w localized errythema on the pals and soles. Improved over the course of the day No F/C/CP/SOB/N/V/D Sleeping well Objective: Vital Signs Temp Pulse Resp BP Pulse Ox 37.0 C 73 16 130/76 H 91 L 10/07/18 06:07 10/07/18 06:07 10/07/18 06:07 10/07/18 06:07 10/07/18 06:07 Laboratory Results 10/03/18 05:30 10/05/18 06:05 10/06/18 10/07/18 10/08/18 05:59 05:59 05:59 Intake Total 1150 540 360 Output Total 250 200 200 Balance 900 340 160 Physical Exam - Physical Exam General Appearance: alert, no apparent distress Respiratory: lungs clear Cardiac/Chest: regular rate, rhythm Skin: other (errthema isolated and symetric on the palms of the hands and the soles of the feet.) Extremities: No pedal edema, No calf tenderness, No swelling Neuro/Psych: alert, other (no acute changes), No normal mood/affect (flat) ICD10 Worksheet Patient Problems: Problems Problem Status Onset Brain tumor Acute
[2018-10-07] MEDS: CITALOPRAM 20 MG TAB PO SCH (20:22)
[2018-10-08] MEDS: ACETAMINOPHEN 500 MG TAB PO SCH (05:05)
[2018-10-08] MEDS: SODIUM CHLORIDE 1,000 MG TAB PO SCH ×3 (08:40→17:13)
[2018-10-08] MEDS: CHOLECALCIFEROL VIT D3 1,000 UNITS TAB PO SCH ×2 (08:40→21:03)
[2018-10-08] MEDS: FAMOTIDINE 20 MG TAB PO SCH ×2 (08:40→21:03)
[2018-10-08] MEDS: levETIRAcetam 250 MG TAB PO SCH ×2 (08:40→21:03)
[2018-10-08] MEDS: POTASSIUM CL 20 MEQ TAB PO SCH (08:40)
[2018-10-08] MEDS: ASPIRIN EC 325 MG TAB PO SCH (08:40)
[2018-10-08] MEDS: POLYETHYLENE GLYCOL 3350 17 GM PKT PO PRN (08:43)
[2018-10-08] MEDS: SENNOSIDES/DOCUSATE SODIUM TAB PO SCH ×2 (08:44→21:03)
[2018-10-08] MEDS ORDERED: ACETAMINOPHEN 500 MG TAB PO PRN (11:52)
--- NOTE | 2018-10-08 13:44 | PDOREHIP ---
Admission [facility] - Admission - 3 Day Assessment Period Admission Date/Day 1: 10/02/18 Day 2: 10/03/18 Day 3: 10/04/18 - Active Diagnoses Comorbidities and Co-existing Conditions at Admission: 17021. None of the Above - Skin Conditions Unhealed Pressure Ulcer (1 or more/Stage 1 or >)-Admission: 0. No (Late entry) # Stage 1 Pressure Ulcers-Admission: 0 # Stage 2 Pressure Ulcers-Admission: 0 # Stage 3 Pressure Ulcers-Admission: 0 # Stage 4 Pressure Ulcers-Admission: 0 # Unstageable Pressure Ulcers (Non-remove Dress)-Admission: 0 # Unstageable Pressure Ulcers (Slough/Eschar)-Admission: 0 # Unstageable Pressure Ulcers (Deep Tissue Injury)-Admission: 0 Discharge [facility] - Discharge - 3 Day Assessment Period 2 Days Prior to Anticipated Discharge Date: 10/07/18 1 Day Prior to Anticipated Discharge Date: 10/08/18 Anticipated Discharge Date: 10/09/18
--- NOTE | 2018-10-08 14:09 | SOAPPROG ---
SOAP Progress Note Assessment/Plan: Assessment: Debility status post excision of frontal meningioma. * Initial functional independence measure is 93 on 10/05/2018. She is at supervision level for bed mobility. She needs cues to initiate. She transfers with standby assist to contact guard assist using a tracking pole. She ambulated 350 ft with a trekking pole with standby assist to contact guard assist. She climbed and descended 9 stairs with 1 rail. She is at supervision or standby assist level for activities of daily living. * Continue PT and OT to optimize mobility and activities of daily living. Cognitive impairment. * Mild issues with attention, memory and judgment. Appears to have slow processing. * Does well with structured activity. 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 Seizure risk and brain edema. Completed dexamethasone taper. Continue levetiracetam until followup with neurosurgeon Dr. Lewis. 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 * Sodium 128 10/03/2018, trending up from 126 in the hospital. * Continue sodium chloride tablets and fluid restriction. Continues to improve with sodium of 130 on BMP 10/05/2018. * Recheck 10/09/2018. Anemia, improving on labs 10/03/2018. Urinary incontinence may be due to mass effect of meningioma on frontal lobes. Expect gradual resolution. * She thinks her control is improving but nursing reports incontinent x3 overnight. She seems to be continent during the day. * Negligible postvoid residuals on bladder scan. Insomnia. Complained of just 1 night of insomnia on the night of admission to inpatient rehabilitation. Subsequently sleeping well. Continue to monitor. Anxiety versus depression. Continue citalopram. Consider changing to non-SSRI if hyponatremia proves refractory. 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 * Had suspicion of eoteg-av-veep shunt on transthoracic echocardiogram, not confirmed on transesophageal echocardiogram. * Continue aspirin. * Unclear whether there are functional deficits associated. * Hypercoagulable workup without abnormality. Prophylaxis. Mobility is much improved. Discontinue enoxaparin starting 2018. Discontinue famotidine. DISPOSITION: Lives with who will be available to assist 24 hr a day. There are 3 steps to enter and 15 steps to the main floor. Plan to discharge home on 10/09/2018 with supervision from . Outpatient PT OT and DERMATOLOGY NURSE PRACTITIONER. FOLLOW-UP: Neurosurgeon Dr. Esposito on 10/10/2017. Neurologist Dr. Fuentes within 6 weeks of discharge. Microfilm Duplicating Unit Supervisor Dr. Garcia after discharge for 30 day heart monitor to rule out occult atrial fibrillation. Had incomplete resection of left frontal meningioma and had 2 other possible small meningiomas. May have need for radiation therapy, to be determined in follow-up with Neurosurgery after discharge. Primary care provider is Dr. Patricio. 10/08/18 14:07 Subjective: No complaints. Slept well. Not in pain. No fevers or chills. Still has some urinary incontinence. Objective: Vital Signs Temp Pulse Resp BP Pulse Ox 37.0 C 75 16 134/65 H 93 10/08/18 05:18 10/08/18 05:18 10/08/18 05:18 10/08/18 05:18 10/08/18 05:18 Laboratory Results 10/03/18 05:30 10/05/18 06:05 10/07/18 10/08/18 10/09/18 05:59 05:59 05:59 Intake Total 540 1160 418 Output Total 200 1000 400 Balance 340 160 18 Physical Exam - Physical Exam General Appearance: WD/WN, alert, no apparent distress Respiratory: No respiratory distress, No accessory muscle use Skin: normal color, warm/dry Neuro/Psych: alert, normal mood/affect, oriented x 3 ICD10 Worksheet Patient Problems: Problems Problem Status Onset Brain tumor Acute
[2018-10-08] MEDS: CITALOPRAM 20 MG TAB PO SCH (21:03)
[2018-10-09 08:12] VITALS: BP 137/74
[2018-10-09] MEDS: FAMOTIDINE 20 MG TAB PO SCH (08:13)
[2018-10-09] MEDS: CHOLECALCIFEROL VIT D3 1,000 UNITS TAB PO SCH (08:13)
[2018-10-09] MEDS: ASPIRIN EC 325 MG TAB PO SCH (08:13)
[2018-10-09] MEDS: SODIUM CHLORIDE 1,000 MG TAB PO SCH ×2 (08:13→11:35)
[2018-10-09] MEDS: levETIRAcetam 250 MG TAB PO SCH (08:13)
[2018-10-09] MEDS: SENNOSIDES/DOCUSATE SODIUM TAB PO SCH (08:13)
[2018-10-09] MEDS: POTASSIUM CL 20 MEQ TAB PO SCH (08:13)
--- NOTE | 2018-10-09 18:17 | GDS ---
[f rep st] DISCHARGE SUMMARY ADMITTING DIAGNOSIS: Debility, status post craniotomy and excision of frontal meningioma. DISCHARGE DIAGNOSIS: Debility, status post craniotomy and excision of frontal meningioma. OTHER DISCHARGE DIAGNOSES: 1. Cognitive impairment. 2. Hyponatremia. 3. Urinary incontinence. 4. Cerebrovascular accident, bilateral parietal and left cerebellar. COMPLICATIONS: There were none. CONSULTATIONS: There were none. PROCEDURES: There were none. HISTORY AND HOSPITAL COURSE: This patient was admitted from [facility] where she had surgery by Dr. Lewis. She had excision of a frontal meningioma. She had periprocedural CVA in the bilateral parietal lobes and left cerebellum. This was suspected to be embolic. She was started on aspirin. There was no intracardiac shunting or arrhythmia found in the hospital. She did well in rehabilitation. Her initial functional independence measure was 93 on 10/05/2018, which is consistent with assisted living level of function. She was at supervision level for bed mobility. She needed cues to initiate activities. She transferred with standby assist to contact guard assist using a trekking pole. She is able to ambulate 350 feet with a trekking pole and standby assist to contact guard assist. She climbed and descended 9 stairs with 1 rail. She was at supervision or standby assist level for activities of daily living. She progressed to independence or modified independence using a trekking pole with bed mobility and transfers. She needed standby assist for ambulation and for stairs. She has achieved standby assist level for mobility-related ADLs. Regarding cognition, she continued to have mild issues with attention, memory, and judgment, and there was slow processing. She did well with structured activity. She had hyponatremia, which was most likely due to SIADH due to her brain surgery. Her last sodium in the hospital was 126. On 10/03/2018, it had improved to 128, and to 130 on 10/05/2018. She also had hypokalemia in the hospital and was receiving also a potassium supplement. On the day of discharge , sodium had improved to 133, potassium was normal. She was advised to discontinue the potassium supplement, but to continue fluid restriction of 1000 cc per day and salt tablets. She had urinary incontinence. This was most likely due to the mass effect of the meningioma on frontal lobes. It may have improved somewhat during her stay , but she continued to have incontinence at night. She was continent during the day. She had negligible postvoid residuals by ultrasound bladder scan. . PLAN ON DISCHARGE: Condition upon discharge is good. Disposition is home with her , who will be able to assist 24 hours a day. She will continue outpatient PT, OT, and speech and language pathology treatments after her discharge. Diet is regular, but she is to maintain a 1000 cc per day fluid restriction. There were no new drug allergies. Allergies that had been identified on admission were ibuprofen and sulfa antibiotics. ACTIVITY: Ad roberto, but she does need supervision to standby assist level for mobility-related activities of daily living. MEDICATIONS UPON DISCHARGE: 1. Acetaminophen 1000 mg p.o. q.8 hours. 2. Aspirin 325 mg p.o. daily. 3. Cholecalciferol 1000 units p.o. twice daily. 4. Citalopram 10 mg p.o. at bedtime. 5. Famotidine 10 mg p.o. twice daily. 6. Levetiracetam 750 mg p.o. twice daily. 7. Polyethylene glycol 17 g p.o. daily. 8. Senna 1-2 tabs p.o. twice daily. 9. Sodium chloride 2000 mg p.o. three times daily with meals. ISSUES TO BE ADDRESSED AT FOLLOWUP: 1. Mobility, functional status, and cognition. 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 She can follow up with her primary care provider regarding her progress. 2. Meningioma, status post resection. She will follow up with neurosurgeon Dr. Lewis, on 10/12/[address] Fuentes, on 10/22/2017. 3. Cryptogenic stroke, likely embolic. She will follow up with laundry operator wash room Chucho Garcia for a 30-day manager monitoring. 4. Hyponatremia. Continue fluid restriction and sodium chloride tablets. Advised followup lab testing in 5-7 days, and she can follow up with primary care provider Dr. Patricio. 5. Urinary incontinence. This will likely improve over time. She can follow up with Dr. Patricio as well and consider an evaluation by Urology if she is not improving. Greater than 30 minutes was spent on this discharge, including medication reconciliation, coordination of care, and counseling of patient. /[id number]/MODL [id number]
== END 2018-10-09 13:07 | disposition home or self-care (01) | DRG 949 ==
LOC: BREH 16:22
PROVIDERS: ADMIT Internal Medicine Hospice and Palliative Medicine; ATTEND Internal Medicine Hospice and Palliative Medicine
PROC: F07M3ZZ Motor Function Treatment of Musculoskeletal System - Whole Body (ICD-10-PCS; principal; 2018-10-02)
PROC: F08Z7ZZ Vocational Activities and Functional Community or Work Reintegration Skills Treatment (ICD-10-PCS; principal; 2018-10-02)
PROC: F0636ZZ Communicative/Cognitive Integration Skills Treatment of Neurological System - Whole Body (ICD-10-PCS; principal; 2018-10-02)
DX: Z48.811 Encounter for surgical aftercare following surgery on the nervous system (principal); E22.2 Syndrome of inappropriate secretion of antidiuretic hormone; R26.89 Other abnormalities of gait and mobility; R41.840 Attention and concentration deficit; R41.89 Other symptoms and signs involving cognitive functions and awareness; Z86.73 Personal history of transient ischemic attack (TIA), and cerebral infarction without residual deficits; D64.89 Other specified anemias; N39.498 Other specified urinary incontinence; E87.6 Hypokalemia; G62.9 Polyneuropathy, unspecified; I10 Essential (primary) hypertension; M85.89 Other specified disorders of bone density and structure, multiple sites; E78.5 Hyperlipidemia, unspecified; R73.03 Prediabetes; F41.9 Anxiety disorder, unspecified; F32.9 Major depressive disorder, single episode, unspecified; Z85.828 Personal history of other malignant neoplasm of skin
CPT/HCPCS: 92507-GN; 92523-GN; 97110-GO; 97110-GP; 97112-GP; 97116-GP; 97162-GP; 97166-GO; 97530-GO; 97530-GP; 97535-GO; G0515-GO; J1650

== ENCOUNTER → 2019-01-01 | Outpatient (CLI) | payer OTHER ==
[~2019-01-01] MED LIST: GADOBUTROL 10 ML VIAL IVP ONE
== END ==
LOC: FIMAGING 16:56
PROVIDERS: ATTEND Physician Assistant Surgical
DX: G31.9 Degenerative disease of nervous system, unspecified (principal); Z98.890 Other specified postprocedural states; Z86.73 Personal history of transient ischemic attack (TIA), and cerebral infarction without residual deficits
CPT/HCPCS: 70553; A9585

== ENCOUNTER → 2019-02-22 | Outpatient (CLI) | payer OTHER | LOC: FIMAGING 09:43 ==